=== PATIENT | female | born 1930 | race Caucasian/White ===

== ENCOUNTER 2017-07-23 11:25 | Inpatient (IN) | payer MEDICARE ==
[2017-07-23] MEDS ORDERED: NS 0.9% 1000 ML* 1,000 ML IV SCH (12:30)
[2017-07-23 12:35] LABS: Hematocrit 35 % (35-47); Hemoglobin 11.6 g/dl (12.0-16.0); Mean Corpuscular HGB Conc 33 g/dl (31-36); Mean Corpuscular Hemoglobin 34 pg (27-31); Mean Corpuscular Volume 102 fL (80-97); Mean Platelet Volume 10 um3 (7.4-10.4); Red Blood Count 3.44 10^6/ul (4.0-5.4); Red Cell Distribution Width 15 % (10.5-15); White Blood Count 12.5 10^3/ul (3.5-10.8)
[2017-07-23 12:53] LABS: Albumin 3.7 g/dL (3.2-5.2); BUN/Creatinine Ratio 19.8 (8-20); C Reactive Protein 4.34 mg/L (< 5.00); Calcium 9.1 mg/dL (8.6-10.3); EGFR Non-African American 52.1 (>60); Globulin 4.1 g/dL (2-4); Magnesium 1.9 mg/dL (1.9-2.7); Potassium 3.9 mmol/L (3.5-5.0); Total Bilirubin 0.6 mg/dL (0.2-1.0); Total Protein 7.8 g/dL (6.4-8.9)
[2017-07-23 12:58] LABS: Troponin I 0.07 ng/mL (<0.04)
--- NOTE | 2017-07-23 13:08 | RAD ---
HISTORY: Fall, anticoagulation COMPARISONS: November 22, 2015 TECHNIQUE: Multiple contiguous axial CT scans were obtained of the head without intravenous contrast. FINDINGS: HEMORRHAGE/INFARCT: There is no hemorrhage or acute infarct. MASSES/SHIFT: There is no mass or shift. EXTRA-AXIAL SPACES: There are no extra-axial fluid collections. SULCI AND VENTRICLES: The sulci and ventricles are normal in size and position for the patient's stated age. CEREBRUM: There is hypoattenuation of the periventricular and subcortical white matter. BRAINSTEM: There are no focal parenchymal abnormalities. CEREBELLUM: There are no focal parenchymal abnormalities. VESSELS: The vessels are grossly normal. PARANASAL SINUSES: The paranasal sinuses are clear. ORBITS: The orbits are unremarkable. BONES AND SOFT TISSUE: No bone or soft tissue abnormalities are noted. OTHER: None IMPRESSION: NO ACUTE INTRACRANIAL PATHOLOGY. CHRONIC SMALL VESSEL ISCHEMIC CHANGE
--- NOTE | 2017-07-23 13:10 | RAD ---
HISTORY: Fall, epistaxis COMPARISONS: None TECHNIQUE: Multiple contiguous axial CT scans were obtained of the face without intravenous contrast, with coronal and sagittal multiplanar reformations. FINDINGS: BONES: There is no displaced fracture or dislocation. The orbital rim is intact. The zygomatic arch is intact. The pterygoid plates are intact. ORBITS: The globes are round. The optic nerves are symmetric. The extraocular musculature is normal. There is no post septal or intraconal inflammatory change. There is no retrobulbar hematoma. PARANASAL SINUSES: The paranasal sinuses are clear. BRAIN AND SOFT TISSUE: Unremarkable. OTHER: None. IMPRESSION: NO FACIAL FRACTURE
--- NOTE | 2017-07-23 13:19 | RAD ---
INDICATION: Trauma. COMPARISON: Comparison is made with a prior x-ray study of the cervical spine from May 06, 2006. TECHNIQUE: Contiguous axial sections were obtained from the skull base through the T2 vertebra. Images were reconstructed in the sagittal and coronal planes. FINDINGS: There is straightening of the cervical spine. The vertebra are otherwise in normal alignment. No prevertebral soft tissue swelling or fracture is seen. There is fusion of the C3 and C4 vertebral bodies. At the C3-C4 level there is mild posterior uncinate process spurring. No significant spinal canal narrowing is present. There is mild bilateral neural foraminal narrowing. At the C4-C5 level there is mild posterior uncinate process spurring. No significant spinal canal narrowing is present. There is mild neural foraminal narrowing on the right side and moderate neural frontal narrowing on the left side. At the C5-C6 level there is moderate posterior uncinate process spurring which causes mild to moderate spinal canal narrowing and mild to moderate bilateral neural foraminal narrowing. At the C6-C7 level there is minimal posterior uncinate process spurring. No significant spinal canal or neural foraminal narrowing is present. Neural foramen appear patent on both sides. IMPRESSION: 1. NO EVIDENCE FOR FRACTURE. 2. MODERATE CERVICAL SPONDYLOSIS.
--- NOTE | 2017-07-23 13:23 | RAD ---
HISTORY: Lightheadedness, fall COMPARISONS: October 26, 2015 VIEWS:1: Single frontal portable view of the chest at 12:54 PM FINDINGS: LINES AND TUBES: None. CARDIOMEDIASTINAL SILHOUETTE: The cardiomediastinal silhouette is normal for portable technique. PLEURA: The costophrenic angles are sharp. No pleural abnormalities are noted. LUNG PARENCHYMA: The lungs are clear. ABDOMEN: There is moderate hiatal hernia BONES AND SOFT TISSUES: No bone or soft tissue abnormalities are noted. IMPRESSION: HIATAL HERNIA. NO ACTIVE CARDIOPULMONARY DISEASE.
[2017-07-23 13:24] LABS: TSH (Thyroid Stimulating Horm) 1.16 mcIU/mL (0.34-5.60)
[2017-07-23] MEDS ORDERED: Ondansetron INJ* 2 MG/ML VIAL IV PRN (14:51)
[2017-07-23] MEDS ORDERED: Acetaminophen TAB* 325 MG PO PRN (14:51)
[2017-07-23] MEDS ORDERED: Perflutren Lipid Microsphere* 3 ML VIAL ONE (15:39)
--- NOTE | 2017-07-23 15:47 | ED ---
Delmy Bowen Alfonso, scribed for Lorenzo Ji MD on 07/23/17 at 1206 . Adult Trauma - HPI Summary HPI Summary: This patient is an 86 year old [place] [facility] [place]p [place] approximately 0000. She fell walking to the bathroom. She was on the floor all night and found this morning. The patient rates the pain 5/10 in severity. Symptoms aggravated by nothing. Symptoms alleviated by nothing. Patient reports dizziness (lightheadedness), and neck pain. Patient denies LOC, weakness, abdominal pain, N/V/D, hip pain, CP, SOB, fever, chills, and urinary symptoms. She normal uses a cane to walk. PMHx of A-Fib. She is on Coumadin. Medications reviewed. - History of Current Complaint Chief Complaint: EDDizziness Stated Complaint: FALL Hx Obtained From: Patient Mechanism of Injury: Fall Ambulatory at the Scene: No Loss of Consciousness: no loss of consciousness Onset/Duration: Started Hours Ago - midnight, Still Present Onset of Pain: Prior to Arrival Onset Severity: Moderate Current Severity: Moderate Pain Intensity: 5 Pain Scale Used: 0-10 Numeric Aggravating Factor(s): Nothing Alleviating Factor(s): Nothing Associated Signs & Symptoms: Positive: Other: - Patient reports dizziness ( lightheadedness), and neck pain. Patient denies LOC, weakness, abdominal pain, N /V/D, hip pain, CP, SOB, fever, chills, and urinary symptoms. Related History: Anticoagulants - Coumadin - Allergy/Home Medications Allergies/Adverse Reactions: Allergies Allergy/AdvReac Type Severity Reaction Status Date / Time Sulfamethoxazole Allergy Intermediate Hives Verified 08/20/13 23:40 w/Trimethoprim [From Bactrim] one that starts with a s Allergy Hives Uncoded 08/20/13 23:40 PMH/Surg Hx/FS Hx/Imm Hx Cardiovascular History: Reports: Hx Atrial Fibrillation Sensory History: Denies: Hx Deafness Opthamlomology History: Denies: Hx Legally Blind - Immunization History Date of Tetanus Vaccine: unknown Infectious Disease History: No Infectious Disease History: Denies: Traveled Outside the [place] in Last 30 Days - Family History Known Family History: Positive: Cardiac Disease, Diabetes, Other - CVA - Social History Alcohol Use: None Substance Use Type: Reports: None Smoking Status (MU): Never Smoked Tobacco Review of Systems Negative: Fever, Chills Negative: Chest Pain Negative: Shortness Of Breath Negative: Abdominal Pain, Vomiting, Diarrhea, Nausea Positive: no symptoms reported Positive: Other - Fall, neck pain; negative hip pain. Neurological: Other - dizziness (lightheadedness); negative LOC, weakness All Other Systems Reviewed And Are Negative: Yes Physical Exam Triage Information Reviewed: Yes Vital Signs On Initial Exam: Initial Vitals Temp Pulse Resp BP Pulse Ox 98.8 F 71 14 102/46 94 07/23/17 11:36 07/23/17 11:36 07/23/17 11:36 07/23/17 11:36 07/23/17 11:36 Vital Signs Reviewed: Yes Appearance: Positive: Well-Appearing, No Pain Distress Skin: Positive: Warm, Skin Color Reflects Adequate Perfusion, Dry Head/Face: Positive: Normal Head/Face Inspection Eyes: Positive: EOMI, BEATRIZ ENT: Positive: Other - Dry blood near nares. Nares open. Nose non tender Neck: Positive: Supple, Other: - Mild tenderness to neck palpation posteriorly. Respiratory/Lung Sounds: Positive: Clear to Auscultation, Breath Sounds Present Cardiovascular: Positive: RRR Abdomen Description: Positive: Nontender, Soft Bowel Sounds: Positive: Present Musculoskeletal: Positive: Strength/ROM Intact, Other - Chest non tender. Mild right anterior javier tenderness. No obvious leg deformity. Neurological: Positive: Normal, Sensory/Motor Intact, Alert, Oriented to Person Place, Time Psychiatric: Positive: Affect/Mood Appropriate - [place] Coma Scale Coma Scale Total: 15 Diagnostics - Vital Signs Vital Signs Temp Pulse Resp BP Pulse Ox 07/23/17 11:45 70 17 99 07/23/17 11:36 98.8 F 71 15 102/46 94 - Laboratory Lab Results: Lab Results 07/23/17 07/23/17 07/23/17 Range/Units 12:15 12:15 12:15 WBC (3.5-10.8) 10^3/ul RBC (4.0-5.4) 10^6/ul Hgb (12.0-16.0) g/dl Hct (35-47) % MCV (80-97) fL MCH (27-31) pg MCHC (31-36) g/dl RDW (10.5-15) % Plt Count (150-450) 10^3/ul MPV (7.4-10.4) um3 Neut % (Auto) (38-83) % Lymph % (Auto) (25-47) % [place] % (Auto) (1-9) % Eos % (Auto) (0-6) % Baso % (Auto) (0-2) % Absolute Neuts (auto) (1.5-7.7) 10^3/ul Absolute Lymphs (auto) (1.0-4.8) 10^3/ul Absolute Monos (auto) (0-0.8) 10^3/ul Absolute Eos (auto) (0-0.6) 10^3/ul Absolute Basos (auto) (0-0.2) 10^3/ul Absolute Nucleated RBC 10^3/ul Nucleated RBC % INR (Anticoag Therapy) 1.23 H (0.89-1.11) APTT 26.4 (26.0-36.3) seconds Sodium 133 (133-145) mmol/L Potassium 3.9 (3.5-5.0) mmol/L Chloride 98 L (101-111) mmol/L Carbon Dioxide 28 (22-32) mmol/L Anion Gap 7 (2-11) mmol/L BUN 20 (6-24) mg/dL Creatinine 1.01 H (0.51-0.95) mg/dL Est GFR ( Amer) 67.0 (>60) Est GFR (Non-Af Amer) 52.1 (>60) BUN/Creatinine Ratio 19.8 (8-20) Glucose 98 (70-100) mg/dL Lactic Acid (0.5-2.0) mmol/L Calcium 9.1 (8.6-10.3) mg/dL Magnesium 1.9 (1.9-2.7) mg/dL Total Bilirubin 0.60 (0.2-1.0) mg/dL AST 34 (13-39) U/L ALT 17 (7-52) U/L Alkaline Phosphatase 39 (34-104) U/L Total Creatine Kinase 1164 H (10-223) U/L CK-MB (CK-2) 16.0 H (0.6-6.3) ng/mL Troponin I 0.07 H* (<0.04) ng/mL C-Reactive Protein 4.34 (< 5.00) mg/L B-Natriuretic Peptide 484 H ( - 100) pg/mL Total Protein 7.8 (6.4-8.9) g/dL Albumin 3.7 (3.2-5.2) g/dL Globulin 4.1 H (2-4) g/dL Albumin/Globulin Ratio 0.9 L (1-3) Lipase 29 (11.0-82.0) U/L TSH 1.16 (0.34-5.60) mcIU/mL 07/23/17 07/23/17 Range/Units 12:15 12:15 WBC 12.5 H (3.5-10.8) 10^3/ul RBC 3.44 L (4.0-5.4) 10^6/ul Hgb 11.6 L (12.0-16.0) g/dl Hct 35 (35-47) % MCV 102 H (80-97) fL MCH 34 H (27-31) pg MCHC 33 (31-36) g/dl RDW 15 (10.5-15) % Plt Count 222 (150-450) 10^3/ul MPV 10 (7.4-10.4) um3 Neut % (Auto) 80.6 (38-83) % Lymph % (Auto) 10.5 L (25-47) % [place] % (Auto) 8.4 (1-9) % Eos % (Auto) 0 (0-6) % Baso % (Auto) 0.5 (0-2) % Absolute Neuts (auto) 10.1 H (1.5-7.7) 10^3/ul Absolute Lymphs (auto) 1.3 (1.0-4.8) 10^3/ul Absolute Monos (auto) 1.1 H (0-0.8) 10^3/ul Absolute Eos (auto) 0 (0-0.6) 10^3/ul Absolute Basos (auto) 0.1 (0-0.2) 10^3/ul Absolute Nucleated RBC 0 10^3/ul Nucleated RBC % 0 INR (Anticoag Therapy) (0.89-1.11) APTT (26.0-36.3) seconds Sodium (133-145) mmol/L Potassium (3.5-5.0) mmol/L Chloride (101-111) mmol/L Carbon Dioxide (22-32) mmol/L Anion Gap (2-11) mmol/L BUN (6-24) mg/dL Creatinine (0.51-0.95) mg/dL Est GFR ( Amer) (>60) Est GFR (Non-Af Amer) (>60) BUN/Creatinine Ratio (8-20) Glucose (70-100) mg/dL Lactic Acid 1.5 (0.5-2.0) mmol/L Calcium (8.6-10.3) mg/dL Magnesium (1.9-2.7) mg/dL Total Bilirubin (0.2-1.0) mg/dL AST (13-39) U/L ALT (7-52) U/L Alkaline Phosphatase (34-104) U/L Total Creatine Kinase (10-223) U/L CK-MB (CK-2) (0.6-6.3) ng/mL Troponin I (<0.04) ng/mL C-Reactive Protein (< 5.00) mg/L B-Natriuretic Peptide ( - 100) pg/mL Total Protein (6.4-8.9) g/dL Albumin (3.2-5.2) g/dL Globulin (2-4) g/dL Albumin/Globulin Ratio (1-3) Lipase (11.0-82.0) U/L TSH (0.34-5.60) mcIU/mL Result Diagrams: 07/23/17 12:15 07/23/17 12:15 Lab Statement: Any lab studies that have been ordered have been reviewed, and results considered in the medical decision making process. - Radiology CXR Radiology Interpretation Completed By: Radiologist - HIATAL HERNIA. NO ACTIVE CARDIOPULMONARY DISEASE. ED physician has reviewed this radiology report and agrees. - CT Maxillofacial CT Interpretation Completed By: Radiologist - NO FACIAL FRACTURE ED physician has reviewed this radiology report and agrees. Cervical Spine CT Interpretation Completed By: Radiologist - 1. NO EVIDENCE FOR FRACTURE. 2. MODERATE CERVICAL SPONDYLOSIS. ED physician has reviewed this radiology report and agrees. brain CT Interpretation Completed By: Radiologist - NO ACUTE INTRACRANIAL PATHOLOGY. CHRONIC SMALL VESSEL ISCHEMIC CHANGE. ED physician has reviewed this radiology report and agrees. Adult Trauma Course/Dx - Course Course Of Treatment: ADMIT HOSPITALIST STABLE. NO CRITICAL CARE TIME. - Diagnoses Provider Diagnoses: Weakness, Head injury, Troponin level elevated - Physician Notifications Discussed Care Of Patient With: Dewey Charles Time Discussed With Above Provider: 14:10 Instructed by Provider To: Other - Consulted Dr. Charles (hospitalist) at 1410 who agrees to admit. Discharge - Discharge Plan Condition: Stable Disposition: ADMITTED TO [facility] Referrals: Mauri Ryan MD [Primary Care Provider] - The documentation as recorded by the Delmy mason Alfonso accurately reflects the service I personally performed and the decisions made by me, Lorenzo Ji MD.
--- NOTE | 2017-07-23 16:27 | ECHO ---
Patient: RAÚL LEO [facility] Rec#: [id number] : 1930 Date: 07/23/2017 Age: 86y Height: 152.4 cm / 60.0 in Weight: 59.87 kg / 132.0 lbs Sex: F BSA: 1.56 Room#: ED 4 Admit Date#: 07/23/2017 Type: Inpatient Referring: Talon Griffin NP Reading: Precious Cain MD Business Education Professor: Rashida Sim RDCS,RDMS CC: Mauri Ryan MD Transthoracic Echocardiogram Indication: Elevated Trop, Afib BP: 96/54 HR: 77 Rhythm: NSR Findings History: Afib, coumadin Technical Comments: The study quality is fair. Completed 1610 Left Ventricle: The left ventricular chamber size is decreased. Mild concentric left ventricular hypertrophy is observed. Global left ventricular wall motion and contractility are within normal limits. The left ventricle appears hyperdynamic. The estimated ejection fraction is 60-65%. Abnormal left ventricular diastolic function is observed. Left Atrium: The left atrium is moderate to severely dilated. Right Ventricle: The right ventricular cavity size is normal. The right ventricular global systolic function is low normal. Right Atrium: The right atrial cavity size is normal. Aortic Valve: The aortic valve is trileaflet. The aortic valve leaflets are mildly thickened. There is aortic annular calcification. There is mild aortic regurgitation. There is no evidence of aortic stenosis. Mitral Valve: There is mitral annular calcification. The mitral valve leaflets are mildly thickened. There is trace to mild mitral regurgitation. There is no evidence of mitral stenosis. Tricuspid Valve: The tricuspid valve leaflets are normal. There is mild tricuspid regurgitation. No pulmonary hypertension is noted. Pulmonic Valve: The pulmonic valve appears normal. There is moderate pulmonic regurgitation. Pericardium: There is no significant pericardial effusion. Aorta: The aortic root appears normal. There is no dilatation of the aortic arch. Pulmonary Artery: The main pulmonary artery is not well visualized. Venous: The inferior vena cava appears normal in size. There is a greater than 50% respiratory change in the inferior vena cava dimension. Contrast: Definity was used to optimize study. A total fo 2 ml was given Conclusions Mild concentric left ventricular hypertrophy is observed. Global left ventricular wall motion and contractility are within normal limits. The estimated ejection fraction is 60-65%. Abnormal left ventricular diastolic function is observed. The right ventricular global systolic function is low normal. There is mild aortic regurgitation with aortic valve sclerosis. There is trace to mild mitral regurgitation. There is mild tricuspid regurgitation. There is moderate pulmonic regurgitation. No prior echo to compare available. Measurements Name Value Normal Range RVIDd (AP) 2D 2.3 cm (0.9 - 2.6) RVDdMajor (2D) 2.5 cm (2.2 - 4.4) RAd ISD 4CH 4.1 cm (3.4 - 4.9) RA (A4C)W 2.9 cm (2.9 - 4.6) IVSd (2D) 1.3 cm (0.6 - 1) LVPWd (2D) 1.2 cm (0.6 - 1) LVIDd (2D) 2.7 cm (3.6 - 5.4) LVIDs (2D) 2.1 cm - LV FS (2D) 20 % (25 - 45) Aortic Annulus 2 cm (1.4 - 2.6) Ao root diameter (2D) 2.8 cm (2.1 - 3.5) Ascending Ao 2.4 cm (2.1 - 3.4) Aortic arch 3.2 cm (1.8 - 3.4) LA dimension (AP) 2D 3.8 cm (2.3 - 3.8) LAd ISD 4CH 6.2 cm (2.9 - 5.3) LA ISD 4CH W 4.7 cm (2.5 - 4.5) Name Value Normal Range LA ESV SP 4CH (A/L) 80.94 ml - LA ESV SP 2CH (A/L) 84.63 ml - LA ESV BP (A/L) 83.74 ml - LA ESV BP (A/L) index 53 ml/m2 - LA ESV SP 4CH (MOD) 74.16 ml - LA ESV SP 2CH (MOD) 76.25 ml - Name Value Normal Range MV E-wave Vmax 1.2 m/sec - MV deceleration time 216 msec - MV A-wave Vmax 0.9 m/sec - MV E:A ratio 1.3 ratio - LV septal e' Vmax 0.04 m/sec - LV lateral e' Vmax 0.06 m/sec - LV E:e' septal ratio 30 ratio - LV E:e' lateral ratio 20 ratio - Name Value Normal Range AV Vmax 1.3 m/sec - AV VTI 24.7 cm - AV peak gradient 7 mmHg - AV mean gradient 3.8 mmHg - LVOT Vmax 1.1 m/sec - LVOT VTI 20 cm - LVOT peak gradient 5 mmHg - LVOT mean gradient 2.6 mmHg - DIMITRI Vmax 0.4 m/sec - Name Value Normal Range MV Vmax 1.3 m/sec - MV VTI 33.1 cm - MV peak gradient 7 mmHg - MV mean gradient 2.5 mmHg - MV PHT 71 msec - MVA (PHT) 3.1 cm2 - Name Value Normal Range TR Vmax 2.6 m/sec - TR peak gradient 27 mmHg - RAP 3 mmHg - RVSP 30 mmHg - IVC diameter 1.2 cm - Name Value Normal Range PV Vmax 1.3 m/sec - PV peak gradient 7 mmHg -
[2017-07-23 16:55] LABS: Troponin I 0.06 ng/mL (<0.04)
[2017-07-23] MEDS ORDERED: Warfarin TAB(*) 5 MG PO ONE (17:00)
[2017-07-23] MEDS: NS 0.9% 1000 ML* 1,000 ML IV SCH (17:47)
[2017-07-23 18:22] LABS: Urine Bilirubin Negative (Negative); Urine Glucose Negative (Negative); Urine Nitrite Negative (Negative)
--- NOTE | 2017-07-23 22:05 | HP ---
CC: Dr. Ryan * HISTORY AND PHYSICAL: DATE OF ADMISSION: 07/23/17 PRIMARY CARE PROVIDER: Dr. Ryan. ATTENDING PHYSICIAN WHILE IN THE HOSPITAL: Dr. Dewey Charles * (report dictated by Talon Sarmiento NP) CHIEF COMPLAINT: Fall. HISTORY OF PRESENT ILLNESS: Ms. Francisco is an 86-year-old female patient. She has a history of AFib with a loop recorder, osteoporosis, psoriasis, and history of degenerative joint disease and she also has psoriatic arthritis. She comes in to the ER today stating that last night, she felt nauseated, she has vomited once. She was getting up to use the bathroom and she was incontinent. When getting up out of her bed, she fell. She says she remembers the fall. She denied having any syncope. She says that she knew where she was when she did fall. She denied having any chest pain prior to or after the fall. She says over the last few days, she has been feeling quite well. There have been no fevers, chills, cough, dysuria, or frequency. She says she was incontinent once last night because she could not make it to the bathroom in time. She was on the floor for an unknown period of time. Her neighbor actually coincidentally knocked on the door this morning looking for her and the patient was yelling out "I need help, I can't get up." So, the neighbor called the staff at [facility], they called 911 and the patient was brought to the hospital. She denies having any pain now and denies any chest pain. Denies any shortness of breath. She does not know how long she was on the floor. Ultimately, it was found that she had an elevated troponin. Her CK was mildly elevated and because of these findings, we were asked to evaluate for admission. PAST MEDICAL HISTORY: Significant for: 1. AFib. 2. Osteoporosis. 3. Psoriasis. 4. Degenerative disk disease. 5. The patient also has a history of psoriatic arthritis. PAST SURGICAL HISTORY: The patient has had an appendectomy and she has had a loop recorder placed. MEDICATIONS: The home meds include: 1. Warfarin 4 mg p.o. daily. 2. Nystatin 1 application topically b.i.d. as needed. 3. Mometasone 0.1% topically t.i.d. as needed. 4. Metoprolol XL 50 mg daily. 5. Methotrexate 7.5 mg weekly. 6. Folic acid 1 mg p.o. daily. 7. Prolia 60 mg subcu every 6 months. 8. Wellbutrin 300 mg p.o. daily. ALLERGIES TO MEDICATIONS: Include SULFA, CIPRO, and CODEINE. FAMILY HISTORY: Mother was diabetic. Father also had psoriasis. SOCIAL HISTORY: The patient is a former smoker. Does not drink alcohol. Lives alone. Surrogate decision maker is her son, Isidro. REVIEW OF SYSTEMS: There is no documented fever. She denied any significant weight change. There was no double vision. There is no ear discharge. Denied having any rhinorrhea. There is no sore throat. No thyroid enlargement. Denies having any chest pain. There was no orthopnea. There is no nocturnal dyspnea. She denied having any abdominal pain. There was no nausea, no vomiting. No dysuria, no frequency. No seizure. There was no loss of consciousness. No pruritus, and no skin ulcerations. Review of 14 systems completed, all others negative. PHYSICAL EXAMINATION GENERAL: At this time, Ms. Francisco is an 86-year-old female patient, appears to be well nourished and well developed. She is sitting in the ER stretcher. She does not appear to be in any acute distress. VITAL SIGNS: Reveal blood pressure 101/54, pulse 80, respirations 18, O2 sat 98 %, temperature 98.8. HEENT: Head is atraumatic and normocephalic. Eyes: EOMs are intact. Sclerae are anicteric and not pale. Throat: Oral mucosa appears to be moist. No oropharyngeal erythema. NECK: Supple. LUNGS: Clear to auscultation bilaterally. No wheezes, rales, or rhonchi. HEART: Sounds S1, S2. Regular rate and rhythm. No murmurs, rubs, or gallops. ABDOMEN: Soft, flat, and nontender. Bowel sounds present. EXTREMITIES: Pulses were 2+ throughout. She is able to move all 4 extremities with 5/5 strength. NEUROLOGIC: The patient is awake, alert, and oriented x3. Tongue is midline. [employer] are equal. There are no gross focal deficits. SKIN: Grossly intact. DIAGNOSTIC STUDIES/LAB DATA: Today revealed WBC of 12.5, RBC of 3.44, hemoglobin of 11.6, hematocrit of 35, platelet count of 222. INR was 1.23, PTT at 26.4. Sodium of 133, potassium 3.9, chloride 98, bicarb 28, BUN 20, creatinine of 1.01, glucose of 98, lactate 1.5, calcium 9.1, mag 1.9. AST 34, ALT 17, alk phos 39. CK was 1164, CK-MB 16. Troponin 0.07. BNP of 44. Albumin 3.7. TSH normal. Urine pending. The patient did have multiple imaging in the ED. She had a maxillofacial CT scan without showed no facial fracture. She had cervical spine imaging which showed no evidence of fracture, moderate cervical spondylosis. CT brain showed no acute intracranial pathology, chronic small vessel ischemic change. Chest x-ray showed hiatal hernia. No active cardiopulmonary disease. EKG showed sinus rhythm with right bundle branch block. No ST elevations or T- wave inversions. It was reviewed to the previous EKG, it is similar, but previously, she was on AFib. Old medical records were reviewed. ASSESSMENT AND PLAN: Ms. Francisco is an 86-year-old female patient coming into the ER today with complaints of fall. On evaluation here today, it was noted her troponin was elevated, CK mildly elevated, white count was mildly elevated, we were asked to evaluate for admission. She will be admitted under observation status for: 1. Mild rhabdomyolysis. Again, at this point, CK is mildly elevated, plan to give her fluids at 125 an hour, repeat her CK every 6 hours to make sure they are trending down. I will check her troponins as well and we will place her on telemetry and we will continue to follow. I will also get PT evaluation. 2. Indeterminate troponin. Again, this could be related to an arrhythmia possibly that caused her to fall, it is hard to say. She has a loop recorder, I asked cardiology office to send over the recording over the last 48 hours to see if there were any arrhythmias. Place her on telemetry. I will cycle her troponins. I will get an echo and if they do continue to elevate, we will get Cardiology involved. We will repeat EKG in the morning if she is not having any chest pain. 3. Leukocytosis. Again, etiology unclear. I am checking a urine. Chest x- ray looked okay. It could just be a leukemoid reaction from the fall. We will monitor. No antibiotics just yet. If she spikes a fever, then I would put her on antibiotics. 4. Atrial fibrillation. She is rate controlled. Her INR is subtherapeutic. I will go ahead and increase her Coumadin. We will follow this closely. For the time being, I will put her on SCDs. 5. Psoriasis. We will continue her meds as prescribed. I did hold the methotrexate for the time being and start this at discharge. I am just holding it for the time being until we know that this white count is not something that represents infection. 6. Degenerative joint disease. Continue supportive care. 7. Psoriatic arthritis. Again, holding the methotrexate. 8. DVT prophylaxis. She will be on SCDs and her Coumadin has been increased. 9. Code status. She is a full code. 10. Fluids, electrolytes, and nutrition. She can have a heart-healthy diet. TIME SPENT: On the admission was approximately 60 minutes; greater than half the time was spent [id number] with the patient obtaining my history and physical, other half the time was spent going over the plan of care with the patient and implementing the plan of care. I did discuss the plan of care with my attending, Dr. Charles; she is in agreement. TALON SARMIENTO NP [id number]/[facility] #: [id number] LEONA
[2017-07-24] MEDS: NS 0.9% 1000 ML* 1,000 ML IV SCH (02:27)
[2017-07-24 05:43] LABS: Hematocrit 29 % (35-47); Hemoglobin 9.9 g/dl (12.0-16.0); Mean Corpuscular HGB Conc 34 g/dl (31-36); Mean Corpuscular Hemoglobin 35 pg (27-31); Mean Corpuscular Volume 103 fL (80-97); Mean Platelet Volume 10 um3 (7.4-10.4); Red Blood Count 2.82 10^6/ul (4.0-5.4); Red Cell Distribution Width 15 % (10.5-15); White Blood Count 8.5 10^3/ul (3.5-10.8)
[2017-07-24 06:01] LABS: BUN/Creatinine Ratio 18.9 (8-20); Calcium 7.9 mg/dL (8.6-10.3); EGFR African American 60.1 (>60); EGFR Non-African American 46.7 (>60); Potassium 3.4 mmol/L (3.5-5.0)
[2017-07-24] MEDS: Folic Acid TAB* 1 MG PO SCH (09:38)
[2017-07-24] MEDS: Metoprolol Succinate XL TAB* 25 MG PO SCH (09:38)
[2017-07-24] MEDS: BuPROPion XL* 300 MG TAB.XL PO SCH (13:34)
--- NOTE | 2017-07-24 13:51 | PN ---
Subjective Date of Service: 07/24/17 Interval History: Patient denies LOC with her recent fall. No new c/o. Objective Active Medications: Acetaminophen (Tylenol Tab*) 650 mg PO Q4H PRN PRN Reason: FEVER/PAIN Bupropion HCl (Bupropion Xl*) 300 mg PO DAILY [facility] PRN Reason: Protocol Last Admin: 07/24/17 13:34 Dose: 300 mg Folic Acid (Folvite Tab*) 1 mg PO DAILY [facility] Last Admin: 07/24/17 09:38 Dose: 1 mg Metoprolol Succinate (Toprol Xl Tab*) 50 mg PO DAILY [facility] Last Admin: 07/24/17 09:38 Dose: 50 mg Ondansetron HCl (Zofran Inj*) 4 mg IV Q6H PRN PRN Reason: NAUSEA Pharmacy Profile Note (Coumadin Per Pharmacy*) 1 note FOLLOW UP .PER PHARMACY PROTOC [facility] PRN Reason: Protocol Pharmacy Profile Note (Coumadin Daily Reminder*) 1 note FOLLOW UP 1700 [facility] Last Admin: 07/23/17 18:11 Dose: 1 note Warfarin Sodium (Coumadin Tab(*)) 5 mg PO ONCE@1700 ONE Stop: 07/24/17 17:01 Vital Signs 07/23/17 07/23/17 07/23/17 15:00 15:50 16:00 Temperature Pulse Rate 80 77 79 Respiratory 18 18 19 Rate Blood Pressure 93/57 (mmHg) O2 Sat by Pulse 82 98 95 Oximetry 07/23/17 07/23/17 07/23/17 16:19 19:37 20:00 Temperature 98.2 F 99.0 F Pulse Rate 76 80 Respiratory 18 16 17 Rate Blood Pressure 113/57 100/49 (mmHg) O2 Sat by Pulse 96 99 Oximetry 07/24/17 07/24/17 07/24/17 00:22 01:30 04:50 Temperature 98.2 F 98.2 F Pulse Rate 73 68 Respiratory 16 16 Rate Blood Pressure 102/50 106/46 (mmHg) O2 Sat by Pulse 100 92 100 Oximetry 07/24/17 07/24/17 07:38 08:00 Temperature 98.4 F Pulse Rate 71 Respiratory 16 16 Rate Blood Pressure 105/49 (mmHg) O2 Sat by Pulse 96 Oximetry Oxygen Devices in Use Now: None Appearance: Alert, partly up in bed. In good spirits. Looks comfortable. Neck: NL Appearance and Movements; NL JVP, No Thyroid Enlargement, Masses Respiratory: Symmetrical Chest Expansion and Respiratory Effort, Clear to Auscultation, Clear to Percussion Cardiovascular: NL Sounds; No Murmurs; No JVD, No Edema, - - irreg and fast Extremities: No Edema, No Clubbing, Cyanosis, - Skin: No Nodules or Sclerosis, - - bruise R shoulder 6x6 cm. Neurological: Alert and Oriented x 3, NL Sensation, NL Gait, - - walks well with a walker Result Diagrams: 07/24/17 05:16 07/24/17 05:16 Additional Lab and Data: Lab Results 07/23/17 07/23/17 07/23/17 Range/Units 12:15 12:15 12:15 WBC (3.5-10.8) 10^3/ul RBC (4.0-5.4) 10^6/ul Hgb (12.0-16.0) g/dl Hct (35-47) % MCV (80-97) fL MCH (27-31) pg MCHC (31-36) g/dl RDW (10.5-15) % Plt Count (150-450) 10^3/ul MPV (7.4-10.4) um3 Neut % (Auto) (38-83) % Lymph % (Auto) (25-47) % [place] % (Auto) (1-9) % Eos % (Auto) (0-6) % Baso % (Auto) (0-2) % Absolute Neuts (auto) (1.5-7.7) 10^3/ul Absolute Lymphs (auto) (1.0-4.8) 10^3/ul Absolute Monos (auto) (0-0.8) 10^3/ul Absolute Eos (auto) (0-0.6) 10^3/ul Absolute Basos (auto) (0-0.2) 10^3/ul Absolute Nucleated RBC 10^3/ul Nucleated RBC % INR (Anticoag Therapy) 1.23 H (0.89-1.11) APTT 26.4 (26.0-36.3) seconds Sodium 133 (133-145) mmol/L Potassium 3.9 (3.5-5.0) mmol/L Chloride 98 L (101-111) mmol/L Carbon Dioxide 28 (22-32) mmol/L Anion Gap 7 (2-11) mmol/L BUN 20 (6-24) mg/dL Creatinine 1.01 H (0.51-0.95) mg/dL Est GFR ( Amer) 67.0 (>60) Est GFR (Non-Af Amer) 52.1 (>60) BUN/Creatinine Ratio 19.8 (8-20) Glucose 98 (70-100) mg/dL Lactic Acid (0.5-2.0) mmol/L Calcium 9.1 (8.6-10.3) mg/dL Magnesium 1.9 (1.9-2.7) mg/dL Total Bilirubin 0.60 (0.2-1.0) mg/dL AST 34 (13-39) U/L ALT 17 (7-52) U/L Alkaline Phosphatase 39 (34-104) U/L Total Creatine Kinase 1164 H (10-223) U/L CK-MB (CK-2) 16.0 H (0.6-6.3) ng/mL Troponin I 0.07 H* (<0.04) ng/mL C-Reactive Protein 4.34 (< 5.00) mg/L B-Natriuretic Peptide 484 H ( - 100) pg/mL Total Protein 7.8 (6.4-8.9) g/dL Albumin 3.7 (3.2-5.2) g/dL Globulin 4.1 H (2-4) g/dL Albumin/Globulin Ratio 0.9 L (1-3) Lipase 29 (11.0-82.0) U/L TSH 1.16 (0.34-5.60) mcIU/mL 07/23/17 07/23/17 Range/Units 12:15 12:15 WBC 12.5 H (3.5-10.8) 10^3/ul RBC 3.44 L (4.0-5.4) 10^6/ul Hgb 11.6 L (12.0-16.0) g/dl Hct 35 (35-47) % MCV 102 H (80-97) fL MCH 34 H (27-31) pg MCHC 33 (31-36) g/dl RDW 15 (10.5-15) % Plt Count 222 (150-450) 10^3/ul MPV 10 (7.4-10.4) um3 Neut % (Auto) 80.6 (38-83) % Lymph % (Auto) 10.5 L (25-47) % [place] % (Auto) 8.4 (1-9) % Eos % (Auto) 0 (0-6) % Baso % (Auto) 0.5 (0-2) % Absolute Neuts (auto) 10.1 H (1.5-7.7) 10^3/ul Absolute Lymphs (auto) 1.3 (1.0-4.8) 10^3/ul Absolute Monos (auto) 1.1 H (0-0.8) 10^3/ul Absolute Eos (auto) 0 (0-0.6) 10^3/ul Absolute Basos (auto) 0.1 (0-0.2) 10^3/ul Absolute Nucleated RBC 0 10^3/ul Nucleated RBC % 0 INR (Anticoag Therapy) (0.89-1.11) APTT (26.0-36.3) seconds Sodium (133-145) mmol/L Potassium (3.5-5.0) mmol/L Chloride (101-111) mmol/L Carbon Dioxide (22-32) mmol/L Anion Gap (2-11) mmol/L BUN (6-24) mg/dL Creatinine (0.51-0.95) mg/dL Est GFR ( Amer) (>60) Est GFR (Non-Af Amer) (>60) BUN/Creatinine Ratio (8-20) Glucose (70-100) mg/dL Lactic Acid 1.5 (0.5-2.0) mmol/L Calcium (8.6-10.3) mg/dL Magnesium (1.9-2.7) mg/dL Total Bilirubin (0.2-1.0) mg/dL AST (13-39) U/L ALT (7-52) U/L Alkaline Phosphatase (34-104) U/L Total Creatine Kinase (10-223) U/L CK-MB (CK-2) (0.6-6.3) ng/mL Troponin I (<0.04) ng/mL C-Reactive Protein (< 5.00) mg/L B-Natriuretic Peptide ( - 100) pg/mL Total Protein (6.4-8.9) g/dL Albumin (3.2-5.2) g/dL Globulin (2-4) g/dL Albumin/Globulin Ratio (1-3) Lipase (11.0-82.0) U/L TSH (0.34-5.60) mcIU/mL Assess/Plan/Problems-Billing Assessment: - Patient Problems (1) Falls Current Visit: Yes Status: Acute Comment: Patient found when VNS came for schedule visit and she didn't answer the door. I am not certain why the loop recorder was inserted but likely for similar events. Dr. Lopez will evaluate patient. (2) Anticoagulant long-term use Current Visit: Yes Status: Acute Code(s): Z79.01 - PLANT BREEDER (CURRENT) USE OF ANTICOAGULANTS SNOMED Code(s): 242116011 Comment: Warfarin increased to 5 mg daily. INR in 2-3 days. (3) Psoriatic arthritis Current Visit: Yes Status: Acute Code(s): L40.50 - ARTHROPATHIC PSORIASIS, UNSPECIFIED SNOMED Code(s): 448847475 Comment: On weekly MTX. (4) Elevated CK Current Visit: Yes Status: Acute Code(s): R74.8 - ABNORMAL LEVELS OF OTHER SERUM ENZYMES SNOMED Code(s): 063006374 Comment: Decreasing, no at a level of concer in of itself.
[2017-07-24] MEDS ORDERED: Warfarin TAB(*) 5 MG PO ONE (17:00)
--- NOTE | 2017-07-24 20:54 | CONSULT ---
Subjective Date of Service: 07/24/17 Interval History: Admission Date: 07/23/17 Provider: Hospitalist PMD: Dr. Ryan Sternman: Dr. Cline CHIEF COMPLAINT: Fall Reason for consult: Fall HISTORY OF PRESENT ILLNESS: Rani Francisco is an 86-year-old woman with a history of paroxysmal AFib, implantable loop recorder, osteoporosis, psoriasis, and history of degenerative joint disease and she also has psoriatic arthritis. Patient had a mechanicall fall while getting up to use the bathroom at night after GI upset and fell. She says she remembers the entire event and denies any palpitations, lightheadedness or syncope. She was unable to get up at [email or web address] and ultimately EMS was called. She was found with mild rhabdomylosis. Linq monitor during the event showed Afib, extensive artifact and what appears to be a wide complex rhythm toward the end of the recorded event but not conclusive. She ruled out for AL as there was no rise and fall of troponin. An echocardiogram showed a normal LVEF and vasodilator stress test was normal. No ventricular arrhythmias on monitoring. PAST MEDICAL HISTORY: Significant for: 1. AFib. 2. Osteoporosis. 3. Psoriasis. 4. Degenerative disk disease. 5. The patient also has a history of psoriatic arthritis. PAST SURGICAL HISTORY: The patient has had an appendectomy and she has had a loop recorder placed. ALLERGIES TO MEDICATIONS: Include SULFA, CIPRO, and CODEINE. FAMILY HISTORY: Mother was diabetic. Father also had psoriasis. SOCIAL HISTORY: The patient is a former smoker. Does not drink alcohol. Lives alone. Surrogate decision maker is her son, Isidro. Medications Active Medications: Acetaminophen (Tylenol Tab*) 650 mg PO Q4H PRN PRN Reason: FEVER/PAIN Bupropion HCl (Bupropion Xl*) 300 mg PO DAILY [facility] PRN Reason: Protocol Last Admin: 07/24/17 13:34 Dose: 300 mg Folic Acid (Folvite Tab*) 1 mg PO DAILY [facility] Last Admin: 07/24/17 09:38 Dose: 1 mg Metoprolol Succinate (Toprol Xl Tab*) 50 mg PO DAILY [facility] Last Admin: 07/24/17 09:38 Dose: 50 mg Ondansetron HCl (Zofran Inj*) 4 mg IV Q6H PRN PRN Reason: NAUSEA Pharmacy Profile Note (Coumadin Per Pharmacy*) 1 note FOLLOW UP .PER PHARMACY PROTOC [facility] PRN Reason: Protocol Pharmacy Profile Note (Coumadin Daily Reminder*) 1 note FOLLOW UP 1700 [facility] Last Admin: 07/24/17 16:07 Dose: 1 note Home Medications: Warfarin TAB(*) [Coumadin TAB(*)] 4 mg PO DAILY 10/26/15 [History Confirmed ] Folic Acid TAB* [Folvite TAB*] 1 mg PO DAILY 11/06/15 [History Confirmed ] Bupropion XL* [Wellbutrin XL *] 300 mg PO DAILY 07/23/17 [History Confirmed ] Denosumab(NF) [Prolia(NF)] 60 mg SUBCUT Q6M 07/23/17 [History Confirmed 07/23/17 ] Methotrexate TAB* 7.5 mg PO WEEKLY 07/23/17 [History Confirmed 07/23/17] Metoprolol Succinate XL TAB* [Toprol XL TAB*] 50 mg PO DAILY 07/23/17 [History Confirmed 07/23/17] Mometasone Furoate [Elocon] 0.1 % TOPICAL TID PRN 07/23/17 [History Confirmed ] Nystatin CREAM* [Nystatin Cream*] 1 applic TOPICAL BID PRN 07/23/17 [History Confirmed 07/23/17] Review of Systems - Measurements Intake and Output: Intake and Output Last 24 Hours 07/22/17 07/23/17 07/24/17 07/25/17 06:59 06:59 06:59 06:59 Intake Total 1790 500 Output Total 0 Balance 1790 500 Weight 127 lb 1.6 oz Intake: IV Fluids 1485 NS (0.9%) 1485 Oral 305 500 Output: Urine 0 Other: Estimated Void Medium # Bowel Movements 0 # Voids 3 - Review of Systems Constitutional Symptoms: Positive: Weakness, Unexplained Falls Negative: Weight Gain, Weight Loss, Fatigue, Fever Dermatology: Negative: Rash, Skin Lumps HEENT: Negative: Change in Hearing, Vertigo Eyes: Negative: Change in Vision, Double Vision Thyroid: Negative: Tremor, Frequent Defecation, Constipation, Palpitations, Change in Skin/Hair Pulmonary: Negative: Cough, Sputum, Hemoptysis, Wheezing, Respiratory Distress, Shortness of Breath, COPD, Exercise Intolerance, Home Oxygen Cardiology: Negative: Chest Pain, Shortness of Breath, Palpitations, Swelling of Ankles, Peripheral Vascular Dis, Edema, Faintness, Syncope, Claudication, Paroxysmal Nocturnal Dyspnea, Orthopnea Gastroenterology: Negative: Abdominal Pain, Indigestion, Difficulty Swallowing, Haematemesis, Melena Review of Systems Statement: All other review of systems negative, unless stated above. Objective Vital Signs: Temp Pulse Resp BP Pulse Ox 98.3 F 111 17 118/70 100 07/24/17 15:28 07/24/17 15:28 07/24/17 15:28 07/24/17 15:28 07/24/17 15:28 Oxygen Devices in Use Now: None Appearance: nad, very pleasant Ears/Nose/Mouth/Throat: Clear Oropharnyx, Mucous Membranes Moist Neck: NL Appearance and Movements; NL JVP Respiratory: Symmetrical Chest Expansion and Respiratory Effort, Clear to Auscultation Cardiovascular: NL Sounds; No Murmurs; No JVD, RRR, No Edema Abdominal: NL Sounds; No Tenderness; No Distention Extremities: No Edema Skin: No Rash or Ulcers Neurological: Alert and Oriented x 3 Laboratory Results: 07/24/17 05:16 07/24/17 05:16 INR (Anticoag Therapy) 1.36 (0.89-1.11) H 07/24/17 05:16 APTT 26.4 seconds (26.0-36.3) 07/23/17 12:15 Total Bilirubin 0.60 mg/dL (0.2-1.0) 07/23/17 12:15 AST 34 U/L (13-39) 07/23/17 12:15 ALT 17 U/L (7-52) 07/23/17 12:15 Alkaline Phosphatase 39 U/L (34-104) 07/23/17 12:15 CK-MB (CK-2) 12.2 ng/mL (0.6-6.3) H 07/23/17 21:39 B-Natriuretic Peptide 484 pg/mL (-100) H 07/23/17 12:15 Total Protein 7.8 g/dL (6.4-8.9) 07/23/17 12:15 Albumin 3.7 g/dL (3.2-5.2) 07/23/17 12:15 Globulin 4.1 g/dL (2-4) H 07/23/17 12:15 Albumin/Globulin Ratio 0.9 (1-3) L 07/23/17 12:15 TSH 1.16 mcIU/mL (0.34-5.60) 07/23/17 12:15 07/23/17 07/23/17 15:55 18:32 Troponin I 0.06 H* 0.06 H* EKG Data: 07/24/2017: NSR, RBBB Assessment/Plan Rani Francisco is an 86 year old woman with PAfib on warfarin who presented with a mechanical fall, no evidence of ACS, no syncope, LVEF normal, vasodilator stress test normal. CT scans did not show any fractures. Linq event during episode extensive artifact and what appears to be some wide complex rhythm but far from conclusive. - Patient advised to be very careful on getting up and ambulating while on anticoagulation - Increase toprol from 50 mg QAM to 50 mg QAM/25 mg QPM for arrhythmia suppression and better PAfib rate control - Patient should follow up with Dr. Cline after discharge Thank you for allowing me to participate in the cardiovascular care of this patient. Please do not hesitate to contact me with questions or concerns.
[2017-07-25 05:23] LABS: Hematocrit 31 % (35-47); Hemoglobin 10.5 g/dl (12.0-16.0); Mean Platelet Volume 9 um3 (7.4-10.4)
[2017-07-25] MEDS: Metoprolol Succinate XL TAB* 25 MG PO SCH (10:18)
[2017-07-25] MEDS: Folic Acid TAB* 1 MG PO SCH (10:19)
[2017-07-25] MEDS: BuPROPion XL* 300 MG TAB.XL PO SCH (10:19)
[2017-07-25] MEDS ORDERED: Regadenoson* 0.4 MG/5 ML SYRINGE ONE (11:06)
[2017-07-25] MEDS ORDERED: Aminophylline IV* 25 MG/ML 10 ML VIAL ONE (11:07)
[2017-07-25 12:59] VITALS: BP 121/53
--- NOTE | 2017-07-25 13:29 | RAD ---
Edited for charges. INDICATION: Syncope, arrhythmia. COMPARISON: No relevant prior exams available on the [facility] [place]. TECHNIQUE: 10.140 mCi of Tc-99m Myoview were administered IV. SPECT images of the heart were obtained. Later on the same day. Under the direction of Dr. Lopez, the patient was given an IV injection of a pharmacologic stress agent. Subsequently, the patient was given an IV injection of 25.940 mCi Tc-99m Myoview. SPECT images of the heart were obtained and a gated wall motion study was performed. FINDINGS: Hiatal hernia noted. Mitral annulus calcifications. Gated wall motion images were obtained at stress and demonstrate wall motion to be within normal limits. The calculated left ventricular ejection fraction is 86 % at stress. Estimated LEFT ventricular end diastolic volume is 44 mL. TID 1.09. Based on review of the attenuation corrected and non corrected images the distribution of radiopharmaceutical within the myocardium on the stress and rest images is within normal limits. No fixed or reversible regions of hypoperfusion evident. IMPRESSION: 1. No evidence for stress induced myocardial ischemia or presence of an infarct. 2. Normal left ventricular wall motion and ejection fraction. ASSESSMENT: LOW RISK. Based on imaging criteria from ACC/AHA 2002 Guideline Update for the Management of Patients With Chronic Stable Angina Table 23. Noninvasive Risk Stratification. MTDD
--- NOTE | 2017-07-25 14:38 | PN ---
Progress Note - Progress Note Date of Service: 07/25/17 Note: TIme spent on discharge 50 minutes. I discussed discharge meds (increased metoprolol dose) with Dr. Mykel Lopez. I discussed need for 7-day pill container with son Dariusz. Pt to get walker at home.
[2017-07-25] MEDS ORDERED: Warfarin TAB(*) 4 MG PO SCH (17:00)
[2017-07-25] MEDS ORDERED: Metoprolol Succinate XL TAB* 25 MG PO SCH (21:00)
--- NOTE | 2017-07-26 05:15 | DS ---
CC: Dr. Ryan DISCHARGE SUMMARY: DATE OF ADMISSION: DATE OF DISCHARGE: 07/25/17 HISTORY OF PRESENT ILLNESS: This 86-year-old woman presented after a fall. She denied loss of cons ciousness. She said she vomited once and was nauseated. At night, she got up to use the bathroom a nd was incontinent. She states she fell down but denied having syncope again. Apparently, she coul d not get up, she laid on the floor. The visiting nurse came by for a scheduled appointment then wh en she did not answer the door, the emergency medical service was called. She sustained a little bruise on her right shoulder. She is able to walk 150 feet with physical the rapy. Her loop recorder was interrogated by Dr. Lopez. She was in atrial fibrillation when she fell. Th ere was a lot of motion artifact. At the end of the motion artifact, there was a short period of wid e-complex beats. The clinical significance of this is uncertain. In the hospital, she was monitored and she went in and out of atrial fibrillation. When in atrial fi brillation, her heart rate was often in the 120s. Because of this, we are going to increase the met oprolol dose. There was not enough evidence on the loop recorder to change her therapy otherwise at this time. She did have an echocardiogram and a nuclear stress test. There was no evidence of inf arct or ischemia. LV function was good. On admission, her INR was 1.23 after a slightly higher dose of warfarin. It went up to 1.75 on the day of discharge. The patient does not use a 7-day pill container. I suspect she often forgets doses of medication in cluding warfarin. I have told son Dariusz to make sure that she gets a 7-day container with multiple c ompartments for different times of the day. This may be alone enough to raise her INR significantly and this should be monitored carefully. She is told to get an INR at Connor's office on 07/29/17. FINAL DIAGNOSES: 1. Fall. The patient was prescribed a walker. 2. Long-time use of anticoagulant. 3. Atrial fibrillation. 4. Psoriatic arthritis. 5. Elevated CK, highest value 0.07. DISCHARGE MEDICATIONS: 1. Acetaminophen 650 mg every 4 hours p.r.n. 2. Warfarin 4 mg daily at 5 p.m. 3. Folic acid 1 mg daily. 4. Methotrexate 7.5 mg weekly. 5. Mometasone 0.1% topical t.i.d. p.r.n. 6. Nystatin cream applied to the affected areas b.i.d. p.r.n. 7. Bupropion XL 300 mg daily. 8. Denosumab 60 mg subcu every 6 months. 9. Metoprolol succinate 25 mg 2 in the morning and 1 in the evening. [id number]/[facility] [place] #: [id number]
--- NOTE | 2017-07-26 07:07 | DS ---
CC: Dr. Ryan. DISCHARGE SUMMARY: DATE OF ADMISSION: DATE OF DISCHARGE: 07/25/17 HISTORY: This 86-year-old woman who came after a fall. She stated she had had emesis, nausea on th e way to the bathroom. She fell down, she denied having syncope. The visiting nurse came by for th e scheduled appointment and the patient did not answer the door and eventually EMS was called. The patient had a bruise on the right shoulder. She otherwise did well. She was monitored on the [facility] floor. She had a mild elevation of CK. Total CK was 1184 at the peak and it started to come d own. Creatinine was 1.11 within the range of her previous results. She had 2 creatinine measuremen ts here. She is a little bit anemic with a hematocrit of 31, similar to previous results, possibly a little lower related to IV hydration. With physical therapy, she is able to walk 150 feet with a walker. We arranged for her to get a walk er at home and I instructed her to use the walker when ever she is walking. Her son, Dariusz came in t o assist with her discharge. She seems to have a good social support. I emphasized the need for he r to get a 7-day container so she could know if she misses medications. Based on her initial low IN R and the resulting increase in INR with just a little extra warfarin, I suspect that she was missin g doses previously at home. Her last INR measured here on the day of discharge was 1.75. The initi al INR was 1.23 on arrival here. She was in and out of atrial fibrillation quite a bit. Dr. Lopez interrogated her loop recorder. At the time she saw, she was in atrial fibrillation, There was a lot of motion artifact. At the en d of the motion artifact, there was a short period with a few beats with a wide complex. It is not really clear what the clinical significance of this in this short period is. Due to her rate being usually 110 to 120 or higher when she was in atrial fibrillation, Dr. Lopez decided to increase her metoprolol. Although she used to take her medications at home, she is now going to take two 25 mg metoprolol succinates in the morning and 1 in the evening for a total of 75 mg a day. She will cont inue on her previous dose of warfarin 4 mg a day. DISCHARGE DIAGNOSES: 1. Falls. 2. Long-term use of anticoagulation. 3. Atrial fibrillation. 4. Psoriatic arthritis. 5. Elevated CK. DISCHARGE MEDICATIONS: 1. Acetaminophen 650 mg every 4 hours p.r.n. 2. Metoprolol succinate 25 mg 2 in the morning and 1 in the evening. 3. Warfarin 4 mg daily at 5 p.m. 4. Folic acid 1 mg daily. 5. Methotrexate 7.5 mg weekly. 6. Mometasone 0.1% topical t.i.d. p.r.n. 7. Nystatin cream 1 application b.i.d. p.r.n. 8. Bupropion XL 300 mg daily. 9. Denosumab 60 mg subcu every 6 weeks. [id number]/[facility] #: [id number]
== END 2017-07-25 16:25 | disposition home health service (06) | DRG 310 ==
LOC: ED 11:25 → MEDTELE 14:48
PROVIDERS: ADMIT Internal Medicine; ATTEND Internal Medicine
DX: I48.0 Paroxysmal atrial fibrillation (principal); D64.9 Anemia, unspecified; L40.50 Arthropathic psoriasis, unspecified; M81.0 Age-related osteoporosis without current pathological fracture; S40.011A Contusion of right shoulder, initial encounter; T79.6XXA Traumatic ischemia of muscle, initial encounter; W17.89XA Other fall from one level to another, initial encounter; R40.2412 Glasgow coma scale score 13-15, at arrival to emergency department; Z88.6 Allergy status to analgesic agent; Z88.2 Allergy status to sulfonamides; Z87.891 Personal history of nicotine dependence; Z88.1 Allergy status to other antibiotic agents; Z82.3 Family history of stroke; Z83.3 Family history of diabetes mellitus; Z82.49 Family history of ischemic heart disease and other diseases of the circulatory system; Z91.81 History of falling; Y92.009 Unspecified place in unspecified non-institutional (private) residence as the place of occurrence of the external cause; Z79.01 Long term (current) use of anticoagulants
CPT/HCPCS: 36415; 70450; 70486; 71010; 72125; 78452; 80048; 80053; 81003; 82550; 82553; 83605; 83690; 83735; 83880; 84443; 84484; 85014; 85018; 85025; 85049; 85610; 85730; 86140; 87086; 93005; 93017; 93306; 94760; A9270-GY; A9502; C8929; J0280; J2785

== ENCOUNTER 2018-01-16 13:48 | Inpatient (IN) | payer MEDICARE ==
[2018-01-16] MEDS ORDERED: Acetaminophen TAB* 325 MG PO ONE (14:16)
[2018-01-16] MEDS ORDERED: NS 0.9% 1000 ML* 1,000 ML IV ONE (14:17)
[2018-01-16] MEDS ORDERED: Oseltamivir CAP* 75 MG CAP PO ONE (15:19)
--- NOTE | 2018-01-16 15:23 | RAD ---
INDICATION: Right ankle swelling COMPARISON: None TECHNIQUE: AP, lateral, and oblique views were obtained. FINDINGS: There is no acute fracture or dislocation. There is no significant soft tissue swelling. IMPRESSION: NO ACUTE BONY FINDINGS.
--- NOTE | 2018-01-16 15:24 | RAD ---
Indication: Right knee pain. 2 views of the right knee demonstrates degenerative changes of the patellofemoral joint as well as the medial and lateral compartment. Moderate-sized joint effusion is noted. No obvious fracture is noted. IMPRESSION: Degenerative changes of the medial, lateral and patellofemoral joint. Small joint effusion is noted.
--- NOTE | 2018-01-16 15:24 | RAD ---
INDICATION: Fall COMPARISON: None TECHNIQUE: An AP portable view obtained at 1254 hours is submitted. FINDINGS: Bones/Soft Tissues: There are no acute bony findings. Cardiomediastinal: The cardiomediastinal silhouette is normal. Lungs: There are no infiltrates. Pleura: There are no pleural effusions. Other: None IMPRESSION: NO ACTIVE DISEASE.
--- NOTE | 2018-01-16 15:25 | RAD ---
Indication: Fall, pelvic pain. Single view of the pelvis is reviewed. The study is limited due to overlying wires. No definite fractures are noted. Pelvic ring is grossly intact. IMPRESSION: Limited study due to overlying foreign bodies. No definite fracture is noted.
--- NOTE | 2018-01-16 15:25 | RAD ---
INDICATION: Right lower extremity injury COMPARISON: None TECHNIQUE: AP and lateral views were obtained. FINDINGS: There is osteopenia. There are no acute bony findings. 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 Soft tissues are intact. IMPRESSION: NO ACUTE FRACTURE.
--- NOTE | 2018-01-16 15:28 | RAD ---
Indication: Head injury. CT of the brain was performed without IV contrast. Comparison is made with previous exam dated July 23, 2017. Ventricular structures are midline. No midline shift is noted. Central and cortical atrophy is noted. Periventricular lucency consistent with chronic ischemic White matter change is noted. IMPRESSION: Chronic ischemic White matter change with no evidence of intracranial mass or hemorrhage.
[2018-01-16 16:06] LABS: ABS Basophils 0 10^3/ul (0-0.2); ABS Eosinophils 0 10^3/ul (0-0.6); ABS Lymphocytes 0.9 10^3/ul (1.0-4.8); ABS Monocytes 0.5 10^3/ul (0-0.8); ABS Neutrophils 9.3 10^3/ul (1.5-7.7); ABS Nucleated RBC 0 10^3/ul; Eosinophil % 0 % (0-6); Hematocrit 30 % (35-47); Hemoglobin 10.5 g/dl (12.0-16.0); Lymphocyte % 8.1 % (25-47); Mean Corpuscular HGB Conc 35 g/dl (31-36); Mean Corpuscular Hemoglobin 36 pg (27-31); Mean Corpuscular Volume 105 fL (80-97); Mean Platelet Volume 9 um3 (7.4-10.4); Nucleated Red Blood Cells % 0; Platelet Count 162 10^3/ul (150-450); Red Blood Count 2.88 10^6/ul (4.0-5.4); Red Cell Distribution Width 15 % (10.5-15); White Blood Count 10.8 10^3/ul (3.5-10.8)
[2018-01-16 16:17] LABS: INR 1.99 (0.77-1.02)
[2018-01-16 16:22] LABS: EGFR Non-African American 45.2 (>60)
--- NOTE | 2018-01-16 17:20 | ED ---
Dixon Bowen Gabriel, scribed for Taylor Bobo MD on 01/16/18 at 1413 . Adult Trauma - HPI Summary HPI Summary: This patient is a 87 year old F BIBA to [facility] from [facility] s/p fall that occurred [employer]. Pt states she doesnt remember falling she just remembers being on the floor. She was unable to get up and was found by the staff at the assisted living facility. She is unsure how long she was on the floor. The patient rates the pain 4/10 in severity. Patient reports fever, RLE pain, vomiting, decreased appetite, and right calf pain. Patient denies diarrhea, cough, SOB, and urinary symptoms. Pt ambulates with cane at baseline. - History of Current Complaint Chief Complaint: EDGeneral Stated Complaint: GENERAL Time Seen by Provider: 01/16/18 14:00 Hx Obtained From: Patient Mechanism of Injury: Fall Ambulatory at the Scene: No Loss of Consciousness: unsure Onset/Duration: Still Present Onset of Pain: Immediate Onset Severity: Moderate Current Severity: Moderate Pain Intensity: 4 Pain Scale Used: 0-10 Numeric Location: Extremities - RLE Associated Signs & Symptoms: Positive: Nausea/Vomiting, Other: - decreased appetite, right calf pain, and fever - Additional Pertinent History Primary Care Physician: [id number] - Allergy/Home Medications Allergies/Adverse Reactions: Allergies Allergy/AdvReac Type Severity Reaction Status Date / Time MS Sulfamethoxazole Allergy Intermediate Hives Verified 08/20/13 23:40 w/Trimethoprim [From Bactrim] sulfamethoxazole Allergy Hives Verified 01/16/18 14:45 [From Bactrim] trimethoprim [From Bactrim] Allergy Hives Verified 01/16/18 14:45 one that starts with a s Allergy Hives Uncoded 08/20/13 23:40 Home Medications: Home Medications Calcium Carbonate/Vitamin D3 [Calcium 600 + Vit D Tablet] 1 each PO DAILY [History Confirmed 01/16/18] Donepezil TAB* [Aricept 5 MG TAB*] 5 mg PO DAILY 01/16/18 [History Confirmed ] Glucosamine Sulfate Dipot Chlr [Gnp Glucosamine Maximum S] 1,500 mg PO DAILY [History Confirmed 01/16/18] Metoprolol Succinate XL TAB* [Toprol XL TAB*] 25 mg PO QPM 01/16/18 [History Confirmed 01/16/18] Metoprolol Succinate XL TAB* [Toprol XL TAB*] 50 mg PO QAM 01/16/18 [History Confirmed 01/16/18] Mometasone Furoate [Mometasone Furoate] 0.1 % TOPICAL TID PRN 01/16/18 [History Confirmed 01/16/18] Nystatin OINT* 1 applic TOPICAL BID PRN 01/16/18 [History Confirmed 01/16/18] PMH/Surg Hx/FS Hx/Imm Hx Endocrine/Hematology History: Denies: Hx Diabetes Cardiovascular History: Reports: Hx Atrial Fibrillation Denies: Hx Angina, Hx Coronary Artery Disease, Hx Hypercholesterolemia, Hx Hypertension - not sure, Hx Myocardial Infarction, Hx Peripheral Vascular Disease, Hx Valvular Heart Disease Respiratory History: Denies: Hx Asthma, Hx Chronic Obstructive Pulmonary Disease (COPD) Sensory History: Denies: Hx Contacts or Glasses, Hx Legally Blind, Hx Deafness, Hx Hearing Aid Opthamlomology History: Denies: Hx Contacts or Glasses, Hx Legally Blind - Immunization History Date of Tetanus Vaccine: unknown Infectious Disease History: No Infectious Disease History: Denies: Hx of Known/Suspected MRSA, Traveled Outside the [place] in Last 30 Days - Family History Known Family History: Positive: Cardiac Disease, Diabetes, Other - CVA - Social History Alcohol Use: None Substance Use Type: Reports: None Smoking Status (MU): Former Smoker Type: Cigarettes Have You Smoked in the Last Year: No Review of Systems Positive: Fever, Other - fall Positive: Vomiting, Other - decreased appetite Positive: Other - RLE pain and right calf pain All Other Systems Reviewed And Are Negative: Yes Physical Exam - Summary Physical Exam Summary: VITAL SIGNS: Reviewed. GENERAL: Patient is a frail elderly female who is lying comfortable in the stretcher. Patient is not in any acute respiratory distress. HEAD AND FACE: No signs of trauma. No ecchymosis, hematomas or skull depressions. No sinus tenderness. EYES: PERRLA, EOMI x 2, No injected conjunctiva, no nystagmus. EARS: Hearing grossly intact. Ear canals and tympanic membranes are within normal limits. MOUTH: Oropharynx within normal limits. NECK: Supple, trachea is midline, no adenopathy, no JVD, no carotid bruit, no c- spine tenderness, neck with full ROM. CHEST: Symmetric, no tenderness at palpation LUNGS: Clear to auscultation bilaterally. No wheezing or crackles. CVS: Regular rate and rhythm, S1 and S2 present,. Systolic murmur 3 over 6 in the left sternal border ABDOMEN: Soft, non-tender. No signs of distention. No rebound no guarding, and no masses palpated. Bowel sounds are normal. EXTREMITIES: patient is tender from the right knee down to the right ankle, NEURO: Alert and oriented x 3. No acute neurological deficits. Speech is normal and follows commands. SKIN: Dry and warm Triage Information Reviewed: Yes Vital Signs On Initial Exam: Initial Vitals Temp Pulse Resp BP Pulse Ox 100.6 F 84 18 143/83 96 01/16/18 13:55 01/16/18 13:55 01/16/18 13:55 01/16/18 13:55 01/16/18 13:55 Vital Signs Reviewed: Yes Diagnostics - Vital Signs Vital Signs Temp Pulse Resp BP Pulse Ox 01/16/18 13:55 100.6 F 84 18 143/83 96 - Laboratory Result Diagrams: 01/16/18 15:57 01/16/18 15:57 Lab Statement: Any lab studies that have been ordered have been reviewed, and results considered in the medical decision making process. - EKG 14:14 Cardiac Rate: NL EKG Rhythm: Sinus Rhythm - at 83 EKG Interpretation: RBBB - Additional Comments Diagnostic Additional Comments: CT brain reveals, per radiologist, Chronic ischemic White matter change with no evidence of intracranial mass or hemorrhage. ED physician has reviewed this radiology report. CXR reveals, per radiologist, NO ACTIVE DISEASE. ED physician has reviewed this radiology report. LE Xray reveals, per radiologist, NO ACUTE FRACTURE. ED physician has reviewed this radiology report. Knee xray reveals, per radiologist, Degenerative changes of the medial, lateral and patellofemoral joint. Small joint effusion is noted. ED physician has reviewed this radiology report. Ankle XRay reveals, per radiologist, NO ACUTE BONY FINDINGS. ED physician has reviewed this radiology report. Pelvis Xray reveals, per radiologist, Limited study due to overlying foreign bodies. No definite fracture is noted. ED physician has reviewed this radiology report. Adult Trauma Course/Dx - Course Assessment/Plan: This patient is a 87 year old F BIBA to [facility] from [facility] s/p fall that occurred [employer]. Pt states she doesnt remember falling she just remembers being on the floor. She was unable to get up and was found by the staff at the assisted living facility. She is unsure how long she was on the floor. The patient rates the pain 4/10 in severity. Patient reports fever, RLE pain, vomiting, decreased appetite, and right calf pain. Patient denies diarrhea, cough, SOB, and urinary symptoms. Pt ambulates with cane at baseline. Pt was positive for influenza B. An EKG reveals RBBB. CT brain reveals, per radiologist, Chronic ischemic White matter change with no evidence of intracranial mass or. hemorrhage. CXR reveals, per radiologist, NO ACTIVE DISEASE. LE Xray reveals, per radiologist, NO ACUTE FRACTURE. Knee xray reveals, per radiologist, Degenerative changes of the medial, lateral and patellofemoral joint. Small. joint effusion is noted. Ankle XRay reveals, per radiologist, NO ACUTE BONY FINDINGS. Pelvis Xray reveals, per radiologist, Limited study due to overlying foreign bodies. No definite fracture is noted. In the ED course the patient was given Tamiflu, Tylenol, and IV fluids. Dx flub b weakness. We discussed patient care with Dr. Fu and he accepted the patient for admission. Patient will be admitted. The patient is agreeable with this plan. - Diagnoses Provider Diagnoses: Weakness, Influenza B - Physician Notifications Discussed Care Of Patient With: Paul Fu Time Discussed With Above Provider: 16:45 Instructed by Provider To: Admit As Inpatient Discharge - Discharge Plan Condition: Fair Disposition: ADMITTED TO [facility] Referrals: Mauri Ryan MD [Primary Care Provider] - The documentation as recorded by the Dixon mason Gabriel accurately reflects the service I personally performed and the decisions made by me, Taylor Bobo MD.
[2018-01-16] MEDS: Acetaminophen TAB* 325 MG PO ONE ×2 (17:53→18:11)
[2018-01-16] MEDS ORDERED: Ondansetron INJ* 2 MG/ML VIAL IV ONE (17:58)
[2018-01-16] MEDS ORDERED: Ondansetron INJ* 2 MG/ML VIAL IV PRN (19:16)
--- NOTE | 2018-01-16 21:22 | RAD ---
INDICATION: Fall. Pelvic pain. COMPARISON: Pelvic radiograph same date TECHNIQUE: Noncontrast axial source images were obtained from the iliac crests through the symphysis pubis. FINDINGS: There are no CT abnormalities of the bony pelvis. There are spondylitic changes of the lower lumbar spine and SI joints and symphysis are intact. The hips articulate normally The uterus and adnexa appear normal. No free fluid or adenopathy is seen. The noncontrast CT appearance of the bowel is unremarkable. The superficial soft tissues appear normal. The bladder appears normal. Other: There are vascular calcifications. There is a fat-containing ventral hernia. The hernia measures approximately 4 cm in transverse dimension and the neck measures 1.1 cm. IMPRESSION: NO CT EVIDENCE OF ACUTE PELVIC FRACTURE. INCIDENTAL FAT-CONTAINING VENTRAL HERNIA.
[2018-01-16] MEDS ORDERED: Heparin VIAL(*) 5000 UNITS/ML VIAL (FIVE THOUSAND) SUBCUT SCH (22:00)
[2018-01-16] MEDS: NS 0.9% 1000 ML* 1,000 ML IV SCH (22:40)
--- NOTE | 2018-01-16 22:46 | HP ---
CC: Dr. Ryan * HISTORY AND PHYSICAL: DATE OF ADMISSION: 01/16/18 PRIMARY CARE PROVIDER: Dr. Ryan. ATTENDING PHYSICIAN WHILE IN THE HOSPITAL: Dr. Marvin Go * (report dictated by Talon Griffin NP). CHIEF COMPLAINT: 1. Weakness. 2. Fall. HISTORY OF PRESENTING ILLNESS: Ms. Francisco is an 87-year-old female patient; she has a history of AFib, osteoporosis, psoriasis, degenerative disk disease, and also has a history of psoriatic arthritis. She comes in today stating that last week she has had nausea and vomiting. Her son, Isidro, is there who says that actually for the last month, she has had intermittent nausea and vomiting. The patient denies any abdominal pain. There have been no fevers or chills. She denies having any chest pain or shortness of breath. Son, Isidro, has noted that she has been increasingly weak particularly over the last couple of days, she has had a fall today. The patient states that she in the last few days has had some runny nose, cough occasionally. She denied any arthralgias or myalgias. There have been no report of fevers, but it was noted that her appetite had been decreasing. She has had not been doing well. She fell last month as well. She came into the ER, was evaluated, it was noted that she had the flu. She denied having again any congestion. She did admit to have that rhinorrhea and intermittent cough. She denied any shortness of breath or chest discomfort. She came in, was evaluated because of the flu symptoms and the fact that she was weak and the fact that she was little hypotensive, at one point her blood pressure was in the 90s systolic. We were asked to evaluate for admission. PAST MEDICAL HISTORY: Significant for: 1. AFib. 2. Osteoporosis. 3. Psoriasis. 4. Degenerative disk disease. 5. Psoriatic arthritis. PAST SURGICAL HISTORY: Includes: 1. Appendectomy. 2. Loop recorder. MEDICATIONS: Home meds include: 1. Calcium with vitamin D 1 tablet daily. 2. Metoprolol XL 25 mg daily. 3. Glucosamine 1500 mg p.o. daily. 4. Toprol-XL 50 mg daily. 5. Methotrexate 7.5 mg p.o. weekly. 6. Mometasone 0.1% topically t.i.d. as needed. 7. Folvite 1 mg p.o. daily. 8. Nystatin 1 application topically b.i.d. as needed. 9. Bupropion 300 mg p.o. daily. 10. Coumadin 4 mg daily. 11. Aricept 5 mg daily. 12. Prolia 60 mg subcu every 6 months. ALLERGIES TO MEDICATIONS: Include SULFA. FAMILY HISTORY: Mother is diabetic. Father has a history of psoriasis. SOCIAL HISTORY: She is a former smoker, she quit over 35 years ago. She does not drink alcohol. She lives alone in [facility]. Surrogate decision maker is the patient's son, Isidro. REVIEW OF SYSTEMS: There is a documented fever. She denied any significant weight change. There was no double vision. She denies having any ear discharge. There is no rhinorrhea. There is no sore throat. No thyroid enlargement. She denies having any chest pain. There is no orthopnea. There is no nocturnal dyspnea. There is no abdominal pain. There has been some nausea with vomiting. No dysuria, no frequency. There was no seizure, no loss of consciousness. No pruritus and no skin ulcerations. Review of 14 systems completed, all others were negative. PHYSICAL EXAMINATION GENERAL: At this time, Ms. Francisco is an 87-year-old female patient, she is sitting in the ED stretcher. She does not appear to be in any acute distress. VITAL SIGNS: Blood pressure 112/58, pulse 80, respirations 18, O2 sat 99%, temperature 101.5. HEENT: Head is atraumatic, normocephalic. Eyes: EOMs are intact. Sclerae were anicteric and not pale. Throat: Oral mucosa appears to be dry. No oropharyngeal erythema. NECK: Supple. LUNGS: Clear to auscultation bilaterally. No wheezes, rales, or rhonchi. HEART: Sounds S1, S2. Regular rate and rhythm. No murmurs, rubs, or gallops. ABDOMEN: Soft, flat, nontender. Bowel sounds present. EXTREMITIES: Pulses 2+ throughout. Moving all 4 extremities with 5/5 strength. NEUROLOGICAL: She is awake, alert, and oriented x3. Tongue midline. Dietitian Consultant were equal. She had no gross focal deficits. SKIN: Intact. DIAGNOSTIC STUDIES/LAB DATA: Revealed a WBC of 10.8, RBC of 2.88, hemoglobin 10.5, hematocrit 30, platelet count of 162. INR of 1.99, PTT of 31.3. Sodium 135, potassium 3.8, chloride of 102, bicarb 26, BUN 15, creatinine 1.14, glucose 104, lactate 1.3, calcium 8.5. Total bili 0.4, AST 16, ALT 11, alk phos 31. Troponin 0.01. Albumin was 3.4. Serology was positive for flu. The patient did have multiple imaging here in the ED. She had a chest x-ray, which showed no active disease. She had an EKG obtained today, which revealed a sinus rhythm with a right bundle branch block, no ST elevations or T-wave inversions were noted. It is reviewed to the previous EKG, it is similar in morphology, rate is little faster today. She did have a pelvis x-ray obtained today, which revealed limited study due to overlying foreign bodies, no definite fracture is seen. She had an x-ray of the ankle obtained today, which revealed no acute bony findings. She had a knee x-ray obtained today, which revealed degenerative changes of the medial, lateral, and patellofemoral joints, small joint effusion is noted. She had a lower extremity x-ray as well, which revealed no acute fracture. She had a brain CT, which revealed chronic ischemic white matter change with no evidence of intracranial mass or hemorrhage. Old medical records were reviewed. ASSESSMENT AND PLAN: Ms. Francisco is an 87-year-old female patient coming in to the ED today with complaints of weakness, nausea, and vomiting, and on evaluation found to have influenza. She will be admitted under inpatient status for: 1. Influenza. At this point, the patient is fairly dehydrated and weakened from this. I suspect she is going to need longer than a 24-hour stay. My plan at this point is to go ahead and admit her, get PT evaluation, order Zofran as needed for the nausea. In addition to this, fluids and Tamiflu for 5 days, and get PT evaluation. 2. Atrial fibrillation. We will go ahead and continue her Coumadin and her beta leti. 3. Osteoporosis. She can follow up with primary. 4. Psoriatic arthritis. When she is not in an immune weakened state, we will continue her methotrexate. 5. Degenerative disk disease. Continue meds as described. 6. DVT prophylaxis. We will continue her warfarin. 7. History of mild dementia. We will continue her Aricept. 8. Code status. She wished to be a DNR. We will try to fill out a MOLST with her. 9. Fluids, electrolytes, and nutrition. She can have clear liquid diet. TIME SPENT: On the admission was 60 minutes; greater than half the time was spent [id number] with the patient obtaining my history and physical; other half time was spent going over the plan of care with the patient and implementing the plan of care. I did discuss the plan of care with my attending physician, Dr. Go; he is in agreement. TALON GRIFFIN NP [id number]/[facility] #: [id number] [place]
[2018-01-17 05:38] LABS: ABS Basophils 0.1 10^3/ul (0-0.2); ABS Eosinophils 0.2 10^3/ul (0-0.6); ABS Lymphocytes 2.1 10^3/ul (1.0-4.8); ABS Monocytes 0.6 10^3/ul (0-0.8); ABS Neutrophils 4.5 10^3/ul (1.5-7.7); ABS Nucleated RBC 0 10^3/ul; Eosinophil % 2.2 % (0-6); Hematocrit 29 % (35-47); Hemoglobin 9.8 g/dl (12.0-16.0); Lymphocyte % 28.5 % (25-47); Mean Corpuscular HGB Conc 34 g/dl (31-36); Mean Corpuscular Hemoglobin 36 pg (27-31); Mean Corpuscular Volume 106 fL (80-97); Mean Platelet Volume 9 um3 (7.4-10.4); Nucleated Red Blood Cells % 0; Platelet Count 145 10^3/ul (150-450); Red Cell Distribution Width 15 % (10.5-15); White Blood Count 7.5 10^3/ul (3.5-10.8)
[2018-01-17 05:41] LABS: INR 2.04 (0.77-1.02)
[2018-01-17 05:45] LABS: EGFR Non-African American 42.2 (>60)
[2018-01-17] MEDS: Donepezil TAB* 5 MG PO SCH (08:50)
[2018-01-17] MEDS: BuPROPion XL* 300 MG TAB.XL PO SCH (08:50)
[2018-01-17] MEDS: Oseltamivir CAP* 30 MG CAP PO SCH ×2 (08:51→20:49)
[2018-01-17] MEDS: Metoprolol Succinate XL TAB* 25 MG PO SCH ×2 (08:54→17:39)
[2018-01-17] MEDS ORDERED: NS 0.9% 1000 ML* 1,000 ML IV SCH (12:15)
[2018-01-17] MEDS: NS 0.9% 1000 ML* 1,000 ML IV SCH (12:43)
--- NOTE | 2018-01-17 15:19 | PN ---
Subjective Date of Service: 01/17/18 Interval History: Patient reports "I cant believe I have the flu I feel pretty good". Per son who is at the bedtime, she was weak at home and prior to getting sick he thinks she has become weaker over the last several months. He reports she looks much better today. No fevers today. reports little appetite. No abdominal pain. No N/ V/D. Denies cough, SOB Objective Active Medications: Acetaminophen (Tylenol Tab*) 650 mg PO Q4H PRN PRN Reason: FEVER/PAIN Bupropion HCl (Bupropion Xl*) 300 mg PO DAILY [facility] PRN Reason: Protocol Last Admin: 01/17/18 08:50 Dose: 300 mg Donepezil HCl (Aricept Tab*) 5 mg PO DAILY [facility] Last Admin: 01/17/18 08:50 Dose: 5 mg Sodium Chloride (Ns 0.9% 1000 Ml*) 1,000 mls @ 100 mls/hr IV PER RATE [facility] Last Admin: 01/16/18 22:40 Dose: 100 mls/hr Sodium Chloride (Ns 0.9% 1000 Ml*) 1,000 mls @ 75 mls/hr IV PER RATE [facility] Stop: 01/18/18 01:34 Last Admin: 01/17/18 12:48 Dose: 75 mls/hr Metoprolol Succinate (Toprol Xl Tab*) 50 mg PO QAM [facility] Last Admin: 01/17/18 08:54 Dose: Not Given Metoprolol Succinate (Toprol Xl Tab*) 25 mg PO QPM [facility] Ondansetron HCl (Zofran Inj*) 4 mg IV Q6H PRN PRN Reason: NAUSEA Oseltamivir Phosphate (Tamiflu Cap*) 30 mg PO BID [facility] Stop: 01/21/18 09:01 Last Admin: 01/17/18 08:51 Dose: 30 mg Warfarin Sodium (Coumadin Tab(*)) 4 mg PO 1700 [facility] PRN Reason: Protocol Vital Signs - 8 hr 01/17/18 01/17/18 08:00 11:49 Temperature 97.7 F 98.2 F Pulse Rate 64 65 Respiratory 16 16 Rate Blood Pressure 93/39 96/37 (mmHg) O2 Sat by Pulse 96 100 Oximetry Oxygen Devices in Use Now: None Appearance: well developed elderly female A+O x3 in NAD Eyes: No Scleral Icterus, PERRLA Ears/Nose/Mouth/Throat: NL Teeth, Lips, Gums, Mucous Membranes Moist Neck: NL Appearance and Movements; NL JVP Respiratory: Symmetrical Chest Expansion and Respiratory Effort, Clear to Auscultation Cardiovascular: NL Sounds; No Murmurs; No JVD, RRR, No Edema Abdominal: NL Sounds; No Tenderness; No Distention Extremities: No Edema, No Clubbing, Cyanosis Skin: No Rash or Ulcers, No Nodules or Sclerosis Neurological: Alert and Oriented x 3, NL Sensation, NL Gait, NL Muscle Strength and Tone Lines/Tubes/Other Access: Clean, Dry and Intact PICC Line Nutrition: Taking PO's Result Diagrams: 01/17/18 05:25 01/17/18 05:25 Assess/Plan/Problems-Billing Assessment: 87 yo female with a PMH of afib, psoriatic arthritis, osteoporosis, dementia who presented to the emergency department on 01/16 with c/o wekaness and fall testing positive for Influenza - Patient Problems (1) Influenza Comment: Influenza B Afebrile today (101 on admission), no leukocytosis continue Tamiflu renally dosed Genralized weakness, per son this has worsened over the last several months d/t pt being sedentary (2) EILEEN (acute kidney injury) Comment: - creatinine a little elevated above baseline - continue gentle IVFs - Recheck BMP in am (3) Electrolyte abnormality Comment: -hypokalemic - give replacement and recheck in am, add on Mg+ (4) Psoriatic arthritis Comment: On weekly MTX. (5) Dementia Comment: continue aricept (6) Afib Comment: EKG showing SR with RBBB Metoprolol and coumadin home meds - metoprolol on hold this morning due to soft BPs. (7) DVT prophylaxis Comment: coumadin Status and Disposition: inpatient with Influenza. PT eval.
[2018-01-17] MEDS: Warfarin TAB(*) 4 MG PO SCH (18:12)
[2018-01-17] MEDS: Docusate CAP* 100 MG PO SCH (22:31)
[2018-01-18 01:16] LABS: Urine Appearance Cloudy; Urine Blood 1+ (Negative); Urine Color Yellow; Urine Ketones Negative (Negative); Urine Protein Negative (Negative); Urine Specific Gravity 1.015 (1.010-1.030); Urine Urobilinogen Negative (Negative)
[2018-01-18 05:49] LABS: INR 1.58 (0.77-1.02)
[2018-01-18 05:52] LABS: ABS Basophils 0.1 10^3/ul (0-0.2); ABS Eosinophils 0.3 10^3/ul (0-0.6); ABS Lymphocytes 1.9 10^3/ul (1.0-4.8); ABS Monocytes 0.7 10^3/ul (0-0.8); ABS Neutrophils 4.6 10^3/ul (1.5-7.7); ABS Nucleated RBC 0 10^3/ul; Eosinophil % 4.4 % (0-6); Hematocrit 27 % (35-47); Hemoglobin 9.3 g/dl (12.0-16.0); Lymphocyte % 24.8 % (25-47); Mean Corpuscular HGB Conc 34 g/dl (31-36); Mean Corpuscular Hemoglobin 36 pg (27-31); Mean Corpuscular Volume 106 fL (80-97); Mean Platelet Volume 10 um3 (7.4-10.4); Nucleated Red Blood Cells % 0; Platelet Count 137 10^3/ul (150-450); Red Blood Count 2.56 10^6/ul (4.0-5.4); Red Cell Distribution Width 15 % (10.5-15); White Blood Count 7.6 10^3/ul (3.5-10.8)
[2018-01-18 05:57] LABS: EGFR Non-African American 48.6 (>60)
[2018-01-18] MEDS ORDERED: Magnesium Sulfate 2 GM IV* 2 GM/50 ML BAG IVPB ONE (08:33)
[2018-01-18] MEDS: Oseltamivir CAP* 30 MG CAP PO SCH ×2 (09:35→20:44)
[2018-01-18] MEDS: BuPROPion XL* 300 MG TAB.XL PO SCH (09:35)
[2018-01-18] MEDS: Donepezil TAB* 5 MG PO SCH (09:35)
[2018-01-18] MEDS: Metoprolol Succinate XL TAB* 25 MG PO SCH ×2 (09:35→17:05)
[2018-01-18] MEDS: Docusate CAP* 100 MG PO SCH ×2 (09:35→20:45)
--- NOTE | 2018-01-18 09:55 | PN ---
Subjective Date of Service: 01/18/18 Interval History: Pt reports she is feeling better today. Denies fever/chills. No cough. Denies SOB/CP. No N/V/D. Reports her appetite is a little better today and she feels stronger. Denies any further dizziness and lightheadedness today with position change. Reports she was able to ambulate with walker independently with stand by assist. Objective Active Medications: Acetaminophen (Tylenol Tab*) 650 mg PO Q4H PRN PRN Reason: FEVER/PAIN Bupropion HCl (Bupropion Xl*) 300 mg PO DAILY [facility] PRN Reason: Protocol Last Admin: 01/18/18 09:35 Dose: 300 mg Docusate Sodium (Colace Cap*) 200 mg PO BID [facility] Last Admin: 01/18/18 09:35 Dose: 200 mg Donepezil HCl (Aricept Tab*) 5 mg PO DAILY [facility] Last Admin: 01/18/18 09:35 Dose: 5 mg Sodium Chloride (Ns 0.9% 1000 Ml*) 1,000 mls @ 100 mls/hr IV PER RATE [facility] Last Admin: 01/16/18 22:40 Dose: 100 mls/hr Metoprolol Succinate (Toprol Xl Tab*) 50 mg PO QAM [facility] Last Admin: 01/18/18 09:35 Dose: 50 mg Metoprolol Succinate (Toprol Xl Tab*) 25 mg PO QPM [facility] Last Admin: 01/17/18 17:39 Dose: Not Given Ondansetron HCl (Zofran Inj*) 4 mg IV Q6H PRN PRN Reason: NAUSEA Oseltamivir Phosphate (Tamiflu Cap*) 30 mg PO BID [facility] Stop: 01/21/18 09:01 Last Admin: 01/18/18 09:35 Dose: 30 mg Warfarin Sodium (Coumadin Tab(*)) 4 mg PO 1700 [facility] PRN Reason: Protocol Last Admin: 01/17/18 18:12 Dose: 4 mg Vital Signs - 8 hr 01/18/18 01/18/18 03:48 08:21 Temperature 98.3 F 98.0 F Pulse Rate 77 74 Respiratory 20 16 Rate Blood Pressure 108/37 120/54 (mmHg) O2 Sat by Pulse 96 96 Oximetry Oxygen Devices in Use Now: None Appearance: well developed elderly female sitting up in a chair A+O x3 Eyes: No Scleral Icterus, PERRLA Ears/Nose/Mouth/Throat: NL Teeth, Lips, Gums, Mucous Membranes Moist Neck: NL Appearance and Movements; NL JVP Respiratory: Symmetrical Chest Expansion and Respiratory Effort, Clear to Auscultation Cardiovascular: NL Sounds; No Murmurs; No JVD, RRR, No Edema Abdominal: NL Sounds; No Tenderness; No Distention Extremities: No Edema, No Clubbing, Cyanosis Skin: No Rash or Ulcers, No Nodules or Sclerosis Neurological: Alert and Oriented x 3, NL Sensation, NL Muscle Strength and Tone Lines/Tubes/Other Access: Clean, Dry and Intact Peripheral IV Nutrition: Taking PO's Result Diagrams: 01/18/18 05:27 01/18/18 05:27 Assess/Plan/Problems-Billing Assessment: 87 yo female with a PMH of afib, psoriatic arthritis, osteoporosis, dementia who presented to the emergency department on 01/16 with c/o wekaness and fall testing positive for Influenza - Patient Problems (1) Influenza Comment: Influenza B Afebrile today (101 on admission), no leukocytosis continue Tamiflu renally dosed Genralized weakness, per son this has worsened over the last several months d/t pt being sedentary - weakness is improving today. PT yesterday recommended continued strength training. I have requested staff ambulate pt and determine if she can go home today. Will also await PT visit today. (2) EILEEN (acute kidney injury) Comment: - Improving with IVFs, creatinine at baseline. (3) Electrolyte abnormality Comment: -Replace Mg+ and K+ today (4) Psoriatic arthritis Comment: On weekly MTX. (5) Dementia Comment: continue aricept (6) Afib Comment: EKG showing SR with RBBB Continue Metoprolol and coumadin - INR 2.04 yesterday down today to 1.58 today, but she missed a dose of coumadin - plan to continue home dose of 4 mg po daily - Continue to monitor INR (7) DVT prophylaxis Comment: coumadin Status and Disposition: inpatient with Influenza. PT following. Possible DC home today or tomorrow.
[2018-01-18] MEDS ORDERED: Potassium Chloride LIQUID* 20 MEQ PACKET PO ONE (12:00)
[2018-01-18] MEDS: Warfarin TAB(*) 4 MG PO SCH (17:05)
[2018-01-18] MEDS: Acetaminophen TAB* 325 MG PO PRN (17:05)
[2018-01-19 06:05] LABS: ABS Basophils 0.1 10^3/ul (0-0.2); ABS Eosinophils 0.4 10^3/ul (0-0.6); ABS Lymphocytes 1.4 10^3/ul (1.0-4.8); ABS Monocytes 0.9 10^3/ul (0-0.8); ABS Neutrophils 5.4 10^3/ul (1.5-7.7); ABS Nucleated RBC 0 10^3/ul; Eosinophil % 5.4 % (0-6); Hematocrit 31 % (35-47); Hemoglobin 10.4 g/dl (12.0-16.0); Lymphocyte % 17.4 % (25-47); Mean Corpuscular HGB Conc 34 g/dl (31-36); Mean Corpuscular Hemoglobin 36 pg (27-31); Mean Corpuscular Volume 106 fL (80-97); Mean Platelet Volume 10 um3 (7.4-10.4); Nucleated Red Blood Cells % 0; Platelet Count 147 10^3/ul (150-450); Red Blood Count 2.89 10^6/ul (4.0-5.4); Red Cell Distribution Width 16 % (10.5-15); White Blood Count 8.2 10^3/ul (3.5-10.8)
[2018-01-19 06:09] LABS: INR 1.71 (0.77-1.02)
[2018-01-19 06:10] LABS: EGFR Non-African American 45.7 (>60)
[2018-01-19] MEDS: Docusate CAP* 100 MG PO SCH (09:58)
[2018-01-19] MEDS: BuPROPion XL* 300 MG TAB.XL PO SCH (09:58)
[2018-01-19] MEDS: Metoprolol Succinate XL TAB* 25 MG PO SCH (09:59)
[2018-01-19] MEDS: Acetaminophen TAB* 325 MG PO PRN (09:59)
[2018-01-19] MEDS: Donepezil TAB* 5 MG PO SCH (09:59)
[2018-01-19] MEDS: Oseltamivir CAP* 30 MG CAP PO SCH (10:01)
[2018-01-19 11:18] VITALS: BP 130/68
--- NOTE | 2018-01-19 12:13 | PN ---
Subjective Date of Service: 01/19/18 Interval History: Ms. Francisco states that she is feeling quite well today and is eager for discharge to home. Objective Active Medications: Acetaminophen (Tylenol Tab*) 650 mg PO Q4H PRN Bupropion HCl (Bupropion Xl*) 300 mg PO DAILY [facility] Docusate Sodium (Colace Cap*) 200 mg PO BID [facility] Donepezil HCl (Aricept Tab*) 5 mg PO DAILY [facility] Metoprolol Succinate (Toprol Xl Tab*) 50 mg PO QAM [facility] Metoprolol Succinate (Toprol Xl Tab*) 25 mg PO QPM [facility] Ondansetron HCl (Zofran Inj*) 4 mg IV Q6H PRN Oseltamivir Phosphate (Tamiflu Cap*) 30 mg PO BID [facility] Warfarin Sodium (Coumadin Tab(*)) 4 mg PO 1700 [facility] Vital Signs: Temp Pulse Resp BP Pulse Ox 97.3 F 68 18 130/68 99 01/19/18 11:17 01/19/18 11:17 01/19/18 11:17 01/19/18 11:17 01/19/18 11:17 Oxygen Devices in Use Now: None Appearance: Female sitting up in chair in NAD Eyes: No Scleral Icterus Ears/Nose/Mouth/Throat: Mucous Membranes Moist Neck: Trachea Midline Respiratory: Symmetrical Chest Expansion and Respiratory Effort, Clear to Auscultation Cardiovascular: NL Sounds; No Murmurs; No JVD, No Edema Abdominal: NL Sounds; No Tenderness; No Distention Lymphatic: No Cervical Adenopathy Extremities: No Edema Skin: No Rash or Ulcers Neurological: Alert and Oriented x 3, NL Muscle Strength and Tone Nutrition: Taking PO's Result Diagrams: 01/19/18 05:24 01/19/18 05:24 Microbiology and Other Data: Vital Signs: Temp Pulse Resp BP Pulse Ox 97.3 F 68 18 130/68 99 01/19/18 11:17 01/19/18 11:17 01/19/18 11:17 01/19/18 11:17 01/19/18 11:17 Assess/Plan/Problems-Billing Assessment: Ms. Francisco is an 87 yo female with a PMH of afib, psoriatic arthritis, osteoporosis, dementia who presented to the emergency department on 01/16 with c/ o weakness and fall testing positive for Influenza. - Patient Problems (1) Influenza Comment: - Has remained afebrile since admission. - Continue Tamiflu renally dosed - Pt states that she is independent with ambulation. (2) EILEEN (acute kidney injury) Comment: - Resolved. (3) Afib Comment: - EKG showing SR with RBBB - Continue metoprolol and coumadin. (4) Dementia Comment: - Continue aricept. - Patient with short term memory deficits, I question if she should continue driving. Will refer back to PCP for further discussions with family. (5) Electrolyte abnormality Comment: - Resolved. (6) Psoriatic arthritis Comment: - Continue home regimen. (7) DVT prophylaxis Comment: - Coumadin. Status and Disposition: Inpatient. Discharge to home.
--- NOTE | 2018-01-20 08:50 | DS ---
CC: Dr. Ryan * [facility] MEDICINE DISCHARGE SUMMARY: DATE OF ADMISSION: 01/16/18 DATE OF DISCHARGE: 01/19/18 PRIMARY CARE PHYSICIAN: Dr. Ryan. ATTENDING PHYSICIAN: Dr. Zaik Fu * (dictation provided by Sherry King NP). PRIMARY DIAGNOSIS: Influenza B. SECONDARY DIAGNOSES: 1. Atrial fibrillation. 2. Osteoporosis. 3. Psoriasis. 4. Degenerative disk disease. 5. Psoriatic arthritis. PAST SURGICAL HISTORY: 1. Appendectomy. 2. History of a loop recorder. MEDICATIONS: Outpatient are as follows: 1. Tamiflu 30 mg p.o. b.i.d. x3 more days. 2. Calcium carbonate with vitamin D 1 tablet daily. 3. Metoprolol succinate 25 mg p.o. b.i.d. 4. Glucosamine 1500 mg p.o. daily. 5. Methotrexate 7.5 mg p.o. weekly. 6. Mometasone 0.1% topically t.i.d. p.r.n. 7. Folic acid 1 mg p.o. daily. 8. Nystatin ointment applied b.i.d. p.r.n. 9. Bupropion XL 300 mg p.o. daily. 10. Warfarin 4 mg daily. 11. Donepezil 5 mg daily. 12. Prolia 60 mg subcutaneously every 6 months. 11. Macrobid 100 mg twice daily for 7 days. HOSPITAL COURSE: Ms. Francisco is an 87-year-old female with a past medical history as mentioned above, who presented to the hospital on 01/16/18 with concern for weakness and a fall. Please see the dictated H and P from Talon Griffin NP, for complete details. In brief, the patient reports that she had some nausea and vomiting that had been intermittent for more than a month, and then her son noted that she was particularly increasingly weak over the past couple of days, resulting in a fall mainly prior to admission. In the emergency room, Ms. Francisco was confirmed to have influenza via nasal swab. She was admitted to the hospital for hydration and treatment. Ms. Francisco had no leukocytosis, but did have a fever to 101.5 on arrival. Ms. Francisco was treated with Tamiflu and IV fluids. With this, she has had good improvement in her symptoms. She is now able to ambulate independently on the unit. I will note that on arrival, the patient also had positive urinalysis with 3+ leuk esterase, 3+ wbc's, and 1+ bacteria. This was shown to have a positive culture with strep group B. Our plans will be to treat that with nitrofurantoin. Ms. Francisco is medically stable for discharge to home. I did review with the patient that she has been having some episodes of confusion mostly notably within this hospitalization, but the family also showed some concerns before this admission. I think that she needs close followup regarding driving, and the patient's son and family are aware and plan to provide increased support. DISPOSITION: Home. DIET: Regular. ACTIVITY: As tolerated. FOLLOWUP PLANS: 1. Please follow up with Dr. Ryan regarding treatment and good resolution of influenza and urinary tract infection. 2. Please follow up with Dr. Ryan regarding further conversations with family regarding safety for continued driving. TIME SPENT: Approximately 60 minutes was spent on the discharge of this patient ; more than half the time was spent with the patient at the bedside reviewing the events leading up to to this hospitalization, performing the physical examination, and reviewing my plan of care. SHERRY KING NP [id number]/KURT #: [id number] LEONA
== END 2018-01-19 13:57 | disposition home or self-care (01) | DRG 194 ==
LOC: ED 13:48 → MEDTELE 17:46 → OBSVTOIN 19:26
PROVIDERS: ADMIT Internal Medicine; ATTEND Internal Medicine
DX: J10.1 Influenza due to other identified influenza virus with other respiratory manifestations (principal); N39.0 Urinary tract infection, site not specified; N17.9 Acute kidney failure, unspecified; I95.9 Hypotension, unspecified; I48.91 Unspecified atrial fibrillation; I45.10 Unspecified right bundle-branch block; E86.0 Dehydration; F03.90 Unspecified dementia, unspecified severity, without behavioral disturbance, psychotic disturbance, mood disturbance, and anxiety; M81.0 Age-related osteoporosis without current pathological fracture; L40.9 Psoriasis, unspecified; L40.50 Arthropathic psoriasis, unspecified; B95.1 Streptococcus, group B, as the cause of diseases classified elsewhere; M51.36 Other intervertebral disc degeneration, lumbar region; Z66 Do not resuscitate; W18.30XA Fall on same level, unspecified, initial encounter; Z91.81 History of falling; Y92.009 Unspecified place in unspecified non-institutional (private) residence as the place of occurrence of the external cause; Z79.01 Long term (current) use of anticoagulants; Z79.899 Other long term (current) drug therapy; Z88.2 Allergy status to sulfonamides; Z83.3 Family history of diabetes mellitus; Z84.0 Family history of diseases of the skin and subcutaneous tissue; Z87.891 Personal history of nicotine dependence
CPT/HCPCS: 36415; 70450; 71045; 72170; 72192; 80048; 80053; 81003; 81015; 82550; 83605; 83735; 84484; 85025; 85610; 85730; 86140; 87040; 87077; 87086; 87502; 93005; 99284; A9270-GY; J2405; J3475

== ENCOUNTER 2018-04-14 11:48 | Emergency (ER) | payer MEDICARE ==
--- NOTE | 2018-04-14 12:54 | RAD ---
HISTORY: Fall, facial injury COMPARISONS: January 16, 2015 TECHNIQUE: Multiple contiguous axial CT scans were obtained of the head without intravenous contrast. FINDINGS: HEMORRHAGE/INFARCT: There is no hemorrhage or acute infarct. MASSES/SHIFT: There is no mass or shift. EXTRA-AXIAL SPACES: There are no extra-axial fluid collections. SULCI AND VENTRICLES: There is diffuse and proportional enlargement of the sulci and ventricles. CEREBRUM: There is hypoattenuation of the periventricular and subcortical white matter. BRAINSTEM: There are no focal parenchymal abnormalities. CEREBELLUM: There are no focal parenchymal abnormalities. VESSELS: There is calcification of the cavernous segments of the internal carotid arteries bilaterally and of the distal left vertebral artery. PARANASAL SINUSES: The paranasal sinuses are clear. ORBITS: The orbits are unremarkable. BONES AND SOFT TISSUE: No bone or soft tissue abnormalities are noted. OTHER: None IMPRESSION: NO ACUTE INTRACRANIAL PATHOLOGY. DIFFUSE INVOLUTIONAL CHANGE WITH CHRONIC SMALL VESSEL ISCHEMIC CHANGES.
--- NOTE | 2018-04-14 12:56 | RAD ---
HISTORY: Fall, facial injury COMPARISONS: July 23, 2017 TECHNIQUE: Multiple contiguous axial CT scans were obtained of the face without intravenous contrast, with coronal and sagittal multiplanar reformations. FINDINGS: BONES: There is no displaced fracture or dislocation. The orbital rim is intact. The zygomatic arch is intact. The pterygoid plates are intact. There is diffuse osteopenia. Degenerative changes noted of the spine. ORBITS: The globes are round. The optic nerves are symmetric. The extraocular musculature is normal. There is no post septal or intraconal inflammatory change. There is no retrobulbar hematoma. PARANASAL SINUSES: The nasal septum is deviated to the left. The paranasal sinuses are clear. BRAIN AND SOFT TISSUE: Unremarkable. OTHER: None. IMPRESSION: NO FACIAL FRACTURE.
--- NOTE | 2018-04-14 13:01 | RAD ---
HISTORY: Fall, facial injury COMPARISONS: July 23, 2017 TECHNIQUE: Multiple contiguous axial CT scans were obtained of the cervical spine without intravenous contrast, with coronal and sagittal multiplanar reformations. FINDINGS: BRAIN: The visualized brain is unremarkable CENTRAL CANAL: Evaluation of the central canal is limited on CT technique; however, there is no obvious canalicular mass or epidural hemorrhage. ALIGNMENT: There is straightening of the cervical lordosis. There is trace anterolisthesis of C7 on T1 VERTEBRAL BODIES: There is diffuse osteopenia. Bilateral cervical ribs are noted at C7. There is multilevel anterolateral marginal osteophyte formation. There is no displaced fracture or dislocation. There is fusion of C3 on C4. JOINTS: There is uncovertebral and facet osteoarthritis. There is osteoarthritis of the atlantoaxial articulation. MUSCULATURE: Unremarkable INTERVERTEBRAL DISCS: There is diffuse loss of intervertebral disc height. AXIAL IMAGES: On axial images, there is neural foraminal narrowing at C5-C6 and C6-C7. There is no osseous central canal stenosis. SOFT TISSUES: The visualized soft tissues of the neck are unremarkable. The prevertebral fat stripe is preserved. OTHER: None. IMPRESSION: 1. OSTEOPENIA. 2. DEGENERATIVE DISC DISEASE AND OSTEOARTHRITIS. 3. NO ACUTE OSSEOUS INJURY TO THE CERVICAL SPINE.
--- NOTE | 2018-04-14 13:56 | RAD ---
HISTORY: Fall, right hip pain COMPARISONS: June 24, 2011 VIEWS: 3, Frontal view of the pelvis with frontal and frog-leg views of the right hip FINDINGS: BONE DENSITY: There is diffuse osteopenia. BONES: There is no displaced fracture. JOINTS: There is mild osteoarthritis of the hips. There is moderate osteoarthrosis of the SI joints. ALIGNMENT: There is no dislocation. SOFT TISSUES: Unremarkable. OTHER FINDINGS: Degenerative changes noted of the spine. IMPRESSION: 1. OSTEOPENIA. 2. OSTEOARTHRITIS. 3. NO RADIOGRAPHIC EVIDENCE FOR HIP FRACTURE. X-RAYS MAY BE NEGATIVE WITH NONDISPLACED HIP FRACTURE, IF THERE IS PERSISTENT CLINICAL CONCERN, RECOMMEND CONSIDERATION OF MRI. IN THE SETTING OF CONTRAINDICATION TO MRI OR LIMITATION IN EMERGENT ACCESS TO MRI, CT WOULD BE SUGGESTED.
--- NOTE | 2018-04-14 13:57 | RAD ---
Indication: Fall, bilateral foot pain. 4 views of the right foot and 4 views of left foot are reviewed. Periosteal reaction involving the fourth metatarsal of the right foot is noted. This may represent stress reaction. Clinical correlation is suggested. The left foot demonstrates no fracture. No other bone or joint abnormality is noted. IMPRESSION: Periosteal reaction involving the fourth right metatarsal. No other fractures are noted. Stress related change should BE considered.
[2018-04-14] MEDS ORDERED: Acetaminophen TAB* 325 MG PO ONE (14:22)
--- NOTE | 2018-04-14 15:37 | ED ---
Dixon Bowen Gabriel, scribed for Nadeem James MD on 04/14/18 at 1218 . Lower Extremity - HPI Summary HPI Summary: This patient is a 87 year old F BIBA to [facility] s/p mechanical fall that occurred this morning in her kitchen while she was getting coffee. The patient rates the pain 4/10 in severity. Patient reports left ankle pain and hip pain. Patient denies LOC, neck pain, and head trauma - History of Current Complaint Chief Complaint: EDExtremityLower Stated Complaint: FALL Time Seen by Provider: 04/14/18 12:07 Hx Obtained From: Patient Mechanism Of Injury: Fall From A Standing Position Onset of Pain: Immediate Onset/Duration: Still Present Severity Initially: Mild Severity Currently: Mild Pain Intensity: 4 Pain Scale Used: 0-10 Numeric Associated Signs And Symptoms: Positive: Negative - LOC, neck pain, and head trauma., Other - left ankle pain and hip pain - Allergies/Home Medications Allergies/Adverse Reactions: Allergies Allergy/AdvReac Type Severity Reaction Status Date / Time sulfamethoxazole Allergy Hives Verified 01/16/18 14:45 [From Bactrim] trimethoprim [From Bactrim] Allergy Hives Verified 01/16/18 14:45 one that starts with a s Allergy Hives Uncoded 08/20/13 23:40 Home Medications: Home Medications Glucosamine CAP (NF) 1 cap PO DAILY 04/14/18 [History Confirmed 04/14/18] Sertraline* [Zoloft*] 25 mg PO DAILY 04/14/18 [History Confirmed 04/14/18] PMH/Surg Hx/FS Hx/Imm Hx Endocrine/Hematology History: Denies: Hx Diabetes Cardiovascular History: Reports: Hx Atrial Fibrillation, Hx Hypertension, Other Cardiovascular Problems/Disorders - Afib Denies: Hx Angina, Hx Coronary Artery Disease, Hx Hypercholesterolemia, Hx Myocardial Infarction, Hx Peripheral Vascular Disease, Hx Valvular Heart Disease Respiratory History: Denies: Hx Asthma, Hx Chronic Obstructive Pulmonary Disease (COPD) GI History: Reports: Hx Ulcer History: Reports: Other Problems/Disorders - stress incontinence per pt Musculoskeletal History: Reports: Hx Arthritis, Hx Osteoporosis Sensory History: Reports: Hx Contacts or Glasses Denies: Hx Legally Blind, Hx Deafness, Hx Hearing Aid Opthamlomology History: Reports: Hx Contacts or Glasses Denies: Hx Legally Blind Neurological History: Reports: Other Neuro Impairments/Disorders - degenerative disc disease Psychiatric History: Denies: Hx Inpatient Treatment - Surgical History Surgery Procedure, Year, and Place: appendectomy. loop recorder - Immunization History Date of Tetanus Vaccine: unknown Infectious Disease History: No Infectious Disease History: Denies: Hx of Known/Suspected MRSA, Traveled Outside the [place] in Last 30 Days - Family History Known Family History: Positive: Cardiac Disease, Diabetes, Other - CVA - Social History Alcohol Use: None Substance Use Type: Reports: None Smoking Status (MU): Former Smoker Type: Cigarettes Have You Smoked in the Last Year: No Review of Systems Negative: Fever Musculoskeletal: Negative - neck pain, and head trauma. Positive: Other - left ankle pain and hip pain. Neurological: Negative - LOC All Other Systems Reviewed And Are Negative: Yes Physical Exam - Summary Physical Exam Summary: VITAL SIGNS: Reviewed. GENERAL: Patient is a elderly female who is lying comfortable in the stretcher. Patient is not in any acute respiratory distress. HEAD AND FACE: No signs of trauma. No ecchymosis, hematomas or skull depressions. No sinus tenderness. EYES: PERRLA, EOMI x 2, No injected conjunctiva, no nystagmus. EARS: Hearing grossly intact. Ear canals and tympanic membranes are within normal limits. MOUTH: Oropharynx within normal limits. NECK: Supple, trachea is midline, no adenopathy, no JVD, no carotid bruit, no c- spine tenderness, neck with full ROM. CHEST: Symmetric, no tenderness at palpation LUNGS: Clear to auscultation bilaterally. No wheezing or crackles. CVS: Regular rate and rhythm, S1 and S2 present, no murmurs or gallops appreciated. ABDOMEN: Soft, non-tender. No signs of distention. No rebound no guarding, and no masses palpated. Bowel sounds are normal. EXTREMITIES: good distal pulses, decreased ROM in the right hip and both ankles NEURO: Alert and oriented x 3. No acute neurological deficits. Speech is normal and follows commands. SKIN: abrasion to the bridge of the nose, ecchymosis of the right orbital Triage Information Reviewed: Yes Vital Signs On Initial Exam: Initial Vitals Temp Pulse Resp BP Pulse Ox 98.5 F 60 20 116/57 98 04/14/18 12:04 04/14/18 12:04 04/14/18 12:04 04/14/18 12:04 04/14/18 12:04 Vital Signs Reviewed: Yes Diagnostics - Vital Signs Vital Signs Temp Pulse Resp BP Pulse Ox 04/14/18 12:04 98.5 F 60 20 116/57 98 - Laboratory Lab Statement: Any lab studies that have been ordered have been reviewed, and results considered in the medical decision making process. - Radiology foot xray Radiology Interpretation Completed By: Radiologist - Periosteal reaction involving the fourth right metatarsal. No other fractures are noted. Stress related change should BE considered. Dr. James has reviewed this report hip xray Radiology Interpretation Completed By: Radiologist - OSTEOPENIA. 2. OSTEOARTHRITIS. 3. NO RADIOGRAPHIC EVIDENCE FOR HIP FRACTURE. X-RAYS MAY BE NEGATIVE WITH NONDISPLACED HIP FRACTURE, IF THERE IS PERSISTENT CLINICAL CONCERN , RECOMMEND CONSIDERATION OF MRI. IN THE SETTING OF CONTRAINDICATION TO MRI OR LIMITATION IN EMERGENT ACCESS TO MRI, CT WOULD BE SUGGESTED. Dr. James has reviewed this report - CT Maxillofacial CT CT Interpretation Completed By: Radiologist - no facial fracture. Dr. James has reviewed this report CT-C spine CT Interpretation Completed By: Radiologist - 1. OSTEOPENIA. 2. DEGENERATIVE DISC DISEASE AND OSTEOARTHRITIS. 3. NO ACUTE OSSEOUS INJURY TO THE CERVICAL SPINE. Dr. James has reviewed this report CT brain CT Interpretation Completed By: Radiologist - NO ACUTE INTRACRANIAL PATHOLOGY. Dr. James has reviewed this report Lower Extremity Course/Dx - Course Assessment/Plan: Patient is an 87-year-old female who presents to the emergency room with a chief complaint of bilateral foot pain. The patient reports that she lost her balance and fell. She also reports mild right hip pain and pain in the face since the patient had facial contusion. Denies any loss of consciousness. She denies any headache or neck pain. Maxillofacial CT impression: No facial fracture. C-spine CT impression: Osteopenia. No acute osseous injury to the cervical spine. Head CT impression: Noncontributory pathology. Bilateral foot x-ray impression: Periosteal reaction involving the fourth right metatarsal. No further fractures are noted. Right hip x-ray shows osteopenia. Osteoarthritis. No radiographic evidence of hip fracture. The patient was given Toradol and Tylenol for the pain. The patient was ambulating in the emergency department and she was able to ambulate without any difficulty. Therefore this time the patient will be discharged home with follow -up with primary care physician. All questions were answered and all CONCERNS were addressed. - Diagnoses Differential Diagnosis/HQI/PQRI: Positive: Arthritis, Bursitis, Fracture (Closed ), Sprain, Strain Provider Diagnoses: Accidental fall, Facial contusion, Hip pain, Leg pain Discharge - Sign-Out/Discharge Documenting (check all that apply): Discharge/Admit/Transfer - Discharge Plan Condition: Stable Disposition: HOME Patient Education Materials: Fall Prevention for Older Adults (ED), Scalp Contusion in Adults (ED), Hip Pain (ED), Hip Contusion (ED), Facial Contusion ( ED) Referrals: Mauri Ryan MD [Primary Care Provider] - 3 Days Additional Instructions: RETURN TO THE ER FOR ANY NEW OR WORSENING SYMPTOMS - Billing Disposition and Condition Condition: STABLE Disposition: HOME The documentation as recorded by the Dixon mason Gabriel accurately reflects the service I personally performed and the decisions made by Jacob sánchez Walter, MD.
[2018-04-14 17:30] VITALS: BP 110/62
== END 2018-04-14 18:01 | disposition home or self-care (01) ==
LOC: ED 11:48
DX: S00.93XA Contusion of unspecified part of head, initial encounter (principal); W19.XXXA Unspecified fall, initial encounter; Y92.9 Unspecified place or not applicable; M79.606 Pain in leg, unspecified; M25.552 Pain in left hip; Z87.891 Personal history of nicotine dependence
CPT/HCPCS: 70450; 70486; 72125; 99283; A9270-GY

== ENCOUNTER 2018-04-15 14:06 | Inpatient (IN) | payer MEDICARE ==
[2018-04-15 14:56] LABS: ABS Basophils 0.1 10^3/ul (0-0.2); ABS Eosinophils 0.2 10^3/ul (0-0.6); ABS Lymphocytes 1.2 10^3/ul (1.0-4.8); ABS Monocytes 1.2 10^3/ul (0-0.8); ABS Nucleated RBC 0 10^3/ul; Eosinophil % 2.7 % (0-6); Hematocrit 28 % (35-47); Hemoglobin 9.6 g/dl (12.0-16.0); Lymphocyte % 14.2 % (25-47); Mean Corpuscular HGB Conc 34 g/dl (31-36); Mean Corpuscular Hemoglobin 36 pg (27-31); Mean Corpuscular Volume 105 fL (80-97); Mean Platelet Volume 9.4 um3 (7.4-10.4); Nucleated Red Blood Cells % 0; Platelet Count 201 10^3/ul (150-450); Red Blood Count 2.69 10^6/ul (4.0-5.4); Red Cell Distribution Width 15 % (10.5-15); White Blood Count 8.7 10^3/ul (3.5-10.8)
--- NOTE | 2018-04-15 14:59 | RAD ---
Indication: Weakness. Single frontal view of the chest performed at 1432 hours was reviewed. Comparison is made with previous exam dated January 16, 2018. No mediastinal shift is noted. Heart is of normal size and configuration. Lung chance are clear. Overall no changes noted since previous exam. IMPRESSION: NO ACTIVE CARDIOPULMONARY DISEASE IS NOTED.
[2018-04-15 15:11] LABS: INR 1.6 (0.77-1.02)
[2018-04-15 15:19] LABS: EGFR Non-African American 49.2 (>60)
--- NOTE | 2018-04-15 15:31 | RAD ---
Indication: Left hip pain. CT of the pelvis was obtained in the axial plane. Sagittal and coronal reconstructed images were obtained. The iliac crest demonstrates no evidence of fracture. Pelvic ring is otherwise intact. The superior and inferior pubic ramus are unremarkable. No fracture is noted. The left femoral head and neck shows no fracture. There may be some minimal degenerative changes of the left hip present. Uterus and ovaries are unremarkable. The urinary bladder is unremarkable. IMPRESSION: No definite fracture of the left hip is noted. Pelvic ring is intact.
[2018-04-15 16:59] LABS: Urine Appearance Clear; Urine Blood Negative (Negative); Urine Color Yellow; Urine Ketones Negative (Negative); Urine Protein Negative (Negative); Urine Specific Gravity 1.016 (1.010-1.030); Urine Urobilinogen Negative (Negative)
[2018-04-15] MEDS ORDERED: Docusate CAP* 100 MG PO PRN (18:42)
[2018-04-15] MEDS ORDERED: Ondansetron INJ* 2 MG/ML VIAL IV PRN (18:42)
[2018-04-15] MEDS: Acetaminophen TAB* 325 MG PO PRN (21:11)
[2018-04-15] MEDS: Metoprolol Succinate XL TAB* 25 MG PO SCH (21:12)
[2018-04-15] MEDS: Warfarin TAB(*) 4 MG PO SCH (21:12)
--- NOTE | 2018-04-15 21:44 | HP ---
CC: Dr. Ryan * HISTORY AND PHYSICAL: DATE OF ADMISSION: 04/15/18 PRIMARY CARE PROVIDER: Dr. Ryan. HEALTHCARE PROXY: Her son, Isidro. CODE STATUS: Full, discussed with the patient and her son. SOURCE OF INFORMATION: History was obtained from interview with the patient and her son, and review of past medical records. RELIABILITY: From the patient and family member is poor, from chart is excellent. CHIEF COMPLAINT: Could not get out of chair. HISTORY OF PRESENT ILLNESS: This 87-year-old female presented to emergency room yesterday after a fall from a standing position after turning quickly to get a cup of coffee, fall without loss of consciousness, chest pain, shortness of breath. She was discharged from the emergency room; however, went home and her family members were checking on her and she has mostly stayed in the chair, unable to get up, unable to feed herself, clothe or bathe herself. Discussion with the patient and her family members, she mostly spends her day in the chair. She did go to the store approximately three weeks ago, but otherwise has had poor self-care. The son indicates there has been no food in the house which the patient did not find distressing as she still had peanut butter. She does admit that she has been eating and drinking less. She has home nurses who indicated that they do not think she can care for herself any longer as relayed by the patient's son. The patient denies any fevers, chills, cough, diarrhea, constipation, symptoms, although does endorse nausea. No shortness of breath or chest pain. They note that they came to the emergency room today because she has had continued weakness that has been at least weeks to months and she has chronic pain in her lower extremities that was worse today after the fall. They note no other exacerbating symptoms other than fall yesterday, but rather gradual decline in her ability to care for herself and the family's ability to compensate and deliver care at home. Currently, she takes Tylenol for the pain in bilateral lower extremities. PAST MEDICAL HISTORY: Includes: 1. Atrial fibrillation, on Coumadin. 2. Osteoarthritis. 3. Osteoporosis. 4. Psoriasis. PAST SURGICAL HISTORY: 1. History of appendectomy. 2. Questionable history of cholecystectomy. HOME MEDICATIONS: Mostly obtained from Brian includes: 1. Coumadin 4 mg daily. 2. Prolia 60 mg every 6 months. 3. Calcium/vitamin D3 daily. 4. Wellbutrin XL 300 mg daily. 5. Methotrexate 7.5 mg weekly. 6. Glucosamine 1 cap daily. 7. Folic acid 1 mg daily. 8. Aricept 5 mg daily. 9. Mometasone 0.1% topically 3 times a day as needed. 10. Metoprolol succinate 50 mg in the morning and 25 mg in the evening. 11. Zoloft 25 mg daily. 12. Nystatin ointment topically twice daily as needed. No area identified. ALLERGIES: SULFAMETHOXAZOLE, TRIAMTERENE. FAMILY HISTORY: CVA. SOCIAL HISTORY: Quit tobacco 35 years prior. Lives alone in [facility]. Drinks no alcohol and no illicits. REVIEW OF SYSTEMS: Positive for intermittent nausea. Otherwise, all other systems reviewed are negative. PHYSICAL EXAMINATION GENERAL: Sitting up in bed, interactive, pleasant, no apparent distress. VITAL SIGNS: When seen in the emergency room 146/95, heart rate 65, respiratory rate is 16, 97% on room air, T-max in the emergency room is 97.3. HEENT: Oropharynx is clear. She has dry mucous membranes. Sclerae are anicteric. She has non-elevated JVD. No cervical or supraclavicular lymphadenopathy. LUNGS: Clear to auscultation. Diminished at the bases. HEART: She has a regular rate and rhythm. No murmurs, rubs, or gallops. ABDOMEN: Soft, nontender, nondistended. EXTREMITIES: Warm and well perfused without clubbing, cyanosis, or edema. She has less than 2 seconds cap refill. NEUROLOGIC: She is alert and oriented x3. Her cranial nerves II through XII are intact. She does have pain over bilateral knees without effusion. She has no apparent anxiety, agitation, or depression. She is in good spirits. She laughs sometimes inappropriately during the course of the interview. SKIN: Indicates bruising under her right eye. LABORATORY DATA: Pertinent labs reviewed. Hemoglobin 9.6, white blood cell count 8.7, platelets 201. INR is 1.6. Sodium is 136, BUN 22, creatinine 1.0. Lactic acid 1.7. Alk phos 32. Urine is bland except for ascorbic acid, somewhat concentrated with specific gravity of 1.016. Chest x-ray, impression: No active cardiopulmonary disease. Pelvis CT, impression: No definitive fracture of the left hip is noted. Pelvic ring is intact. EKG: Sinus rhythm, heart rate 62, normal axis, right bundle-branch block, T- wave inversions at 3. Otherwise, no ST-T wave changes. ASSESSMENT AND PLAN: This is an 87-year-old female presenting with difficulty getting up after a fall yesterday. The family is unable to care for her anymore. I had a samy discussion with the patient and her son. There is no acute problem at this time. We will make assisted with plan to engage Social Work for assistance in long-term care. They understand that assisted admission may cost them money and that may not count for days counted from Medicare to be placed in acute rehab. They are willing to accept this risk and its cost. No other acute findings. We will monitor in the hospital. 1. Atrial fibrillation. Continue Coumadin and metoprolol. 2. Subtherapeutic Coumadin. Recheck INR tomorrow. 3. Suspected dementia. Continue Aricept. 4. Pain control. Tylenol p.r.n. Can increase tramadol if needed. 5. Psoriasis. Continue methotrexate weekly. 7. DVT prophylaxis. Coumadin, recheck tomorrow. [id number]/[facility] #: [id number] [place]
[2018-04-15] MEDS ORDERED: traMADol TAB* 50 MG PO ONE (21:45)
[2018-04-15] MEDS: Nystatin TOP POWDER* 15 GM BTL TOPICAL SCH (23:21)
[2018-04-16 07:03] LABS: INR 1.97 (0.77-1.02)
[2018-04-16] MEDS: Sertraline* 25 MG TAB PO SCH (07:41)
[2018-04-16] MEDS: Folic Acid TAB* 1 MG PO SCH (07:41)
[2018-04-16] MEDS: Metoprolol Succinate XL TAB* 50 MG PO SCH (07:41)
[2018-04-16] MEDS: Acetaminophen TAB* 325 MG PO PRN (07:41)
[2018-04-16] MEDS: Donepezil TAB* 5 MG PO SCH (07:41)
[2018-04-16] MEDS: Nystatin TOP POWDER* 15 GM BTL TOPICAL SCH ×3 (07:46→20:11)
[2018-04-16] MEDS: BuPROPion XL* 300 MG TAB.XL PO SCH (11:09)
--- NOTE | 2018-04-16 16:14 | PN ---
Subjective Date of Service: 04/16/18 Interval History: Reports pain in her knees and feet. Notes this has been long standing and is about as severe as usual. She last took tylenol this AM We discussed adding something stronger if this is ineffective (tramadol) Objective Active Medications: Acetaminophen (Tylenol Tab*) 650 mg PO Q4H PRN PRN Reason: FEVER/PAIN Last Admin: 04/16/18 07:41 Dose: 650 mg Bupropion HCl (Bupropion Xl*) 300 mg PO DAILY [facility] PRN Reason: Protocol Last Admin: 04/16/18 11:09 Dose: 300 mg Docusate Sodium (Colace Cap*) 100 mg PO BID PRN PRN Reason: CONSTIPATION Donepezil HCl (Aricept Tab*) 5 mg PO DAILY [facility] Last Admin: 04/16/18 07:41 Dose: 5 mg Folic Acid (Folvite Tab*) 1 mg PO DAILY [facility] Last Admin: 04/16/18 07:41 Dose: 1 mg Methotrexate (Methotrexate Tab*) 7.5 mg PO WEEKLY [facility] Metoprolol Succinate (Toprol Xl Tab*) 25 mg PO QPM [facility] Last Admin: 04/15/18 21:12 Dose: 25 mg Metoprolol Succinate (Toprol Xl Tab*) 50 mg PO QAM [facility] Last Admin: 04/16/18 07:41 Dose: 50 mg Nystatin (Nystatin Top Powder*) 1 applic TOPICAL TID [facility] Last Admin: 04/16/18 07:46 Dose: 1 applic Ondansetron HCl (Zofran Inj*) 4 mg IV Q4H PRN PRN Reason: NAUSEA/VOMITING Sertraline HCl (Zoloft*) 25 mg PO DAILY [facility] Last Admin: 04/16/18 07:41 Dose: 25 mg Warfarin Sodium (Coumadin Tab(*)) 4 mg PO DAILY@1700 [facility] PRN Reason: Protocol Last Admin: 04/15/18 21:12 Dose: 4 mg Vital Signs - 8 hr 04/16/18 04/16/18 11:25 11:29 Temperature 97.8 F Pulse Rate 71 Respiratory 20 20 Rate Blood Pressure 100/45 (mmHg) O2 Sat by Pulse 97 Oximetry Oxygen Devices in Use Now: None Appearance: NAD Eyes: No Scleral Icterus, PERRLA Ears/Nose/Mouth/Throat: Clear Oropharnyx, Mucous Membranes Moist Neck: NL Appearance and Movements; NL JVP, Trachea Midline Respiratory: Symmetrical Chest Expansion and Respiratory Effort, Clear to Auscultation Cardiovascular: RRR, - - 2/6SEM Abdominal: NL Sounds; No Tenderness; No Distention, No Hepatosplenomegaly Lymphatic: No Cervical Adenopathy Extremities: No Edema, - - tenderness in b/l legs from knees to feet without obvious deformity Skin: - - bruising under right eye Neurological: Alert and Oriented x 3, - - interactive, pleasant, oriented, CN2- 12 intact Result Diagrams: 04/15/18 14:43 04/15/18 14:43 Assess/Plan/Problems-Billing Assessment: 87 yo F h/o afib on AC, OA, psoriasis presented with progressive inability to care for herself at home admitted to the hospital [facility] while family works with social work to locate an appropriate longterm care facility - Patient Problems (1) Failure to thrive Comment: Appears slowly progressive. 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
[2018-04-16] MEDS: Warfarin TAB(*) 4 MG PO SCH (18:13)
[2018-04-16] MEDS: Metoprolol Succinate XL TAB* 25 MG PO SCH (18:13)
[2018-04-16] MEDS: traMADol TAB* 50 MG PO PRN (20:10)
[2018-04-17] MEDS: traMADol TAB* 50 MG PO PRN (03:24)
[2018-04-17] MEDS: BuPROPion XL* 300 MG TAB.XL PO SCH (08:21)
[2018-04-17] MEDS: Acetaminophen TAB* 325 MG PO PRN (08:21)
[2018-04-17] MEDS: Sertraline* 25 MG TAB PO SCH (08:21)
[2018-04-17] MEDS: Metoprolol Succinate XL TAB* 50 MG PO SCH (08:21)
[2018-04-17] MEDS: Donepezil TAB* 5 MG PO SCH (08:21)
[2018-04-17] MEDS: Folic Acid TAB* 1 MG PO SCH (08:21)
[2018-04-17] MEDS: Nystatin TOP POWDER* 15 GM BTL TOPICAL SCH (08:24)
[2018-04-17 11:30] VITALS: BP 83/42
--- NOTE | 2018-04-17 13:20 | PN ---
Progress Note - Progress Note Date of Service: 04/17/18 Note: Time spent on discharge 45 minutes.
--- NOTE | 2018-04-17 15:11 | TRS ---
CC: Dr. Ryan. TRANSFER SUMMARY: DATE OF ADMISSION: DATE OF TRANSFER: 04/17/18. HISTORY OF PRESENT ILLNESS: This 87-year-old woman was brought by the family because they were no lo nger able to take care of her at home; she lives alone. She had been to the emergency room the day b ore after a fall and was discharged from the emergency room. No real change from her baseline was noted. She was placed on shelter care. Her usual medications will be continued. FINAL DIAGNOSES: 1. Failure to thrive. 2. Atrial fibrillation. 3. Psoriasis. This is the indication for methotrexate. 4. Mild dementia. I note on admission her INR was 1.97, although she said she has a machine that dispenses her medicati on on schedule, I am concerned that she may not be taking the medication properly. I am going to red uce her warfarin to 3 mg daily. Depending on her oral intake, this may or may not need to be increas ed in the future. I am recommending an INR on 04/20/18. TRANSFER MEDICATIONS: 1. Warfarin 3 mg daily. 2. Folic acid 1 mg daily. 3. Methotrexate 7.5 mg weekly. 4. Bupropion XL 300 mg daily. 5. Prolia 60 mg subcu every 6 months. 6. Donepezil 5 mg daily. 7. Metoprolol succinate 25 mg h.s. 8. Mometasone 0.1% topical cream t.i.d. p.r.n. 9. Nystatin 1 application b.i.d. p.r.n. 10. Calcium donny and vitamin D3 one tablet daily. 11. Metoprolol succinate XL 50 mg daily. 12. Glucosamine 1 capsule daily. Sertraline has been discontinued. I would recommend consideration of gradual dose reduction of her bupropion XL. DISPOSITION: The patient is transferred to [facility]. [id number]/[facility] #: [id number]
[2018-04-17] MEDS ORDERED: Warfarin TAB(*) 4 MG PO SCH (17:00)
[2018-04-17] MEDS ORDERED: Methotrexate TAB* 2.5 MG PO SCH (19:00)
--- NOTE | 2018-04-28 07:56 | ED ---
Hitesh Bowen Elizabeth, scribed for Yordy Mueller MD on 04/15/18 at 1458 . Complex/Multi-Sys Presentation - HPI Summary HPI Summary: This patient is a 89 year old F BIBA to [facility] with a chief complaint of left leg pain since this morning. The patient was discharged from [facility] 1 day ago. Symptoms aggravated by movement. Symptoms alleviated by lying down. The patient has had increased falls recently. Patient reports increased weakness, difficulty ambulating, bilateral leg and hip pain and swelling. Per triage note , the patient is unable to perform daily tasks or take care of herself. The patient takes Coumadin. - History Of Current Complaint Chief Complaint: EDGeneral Time Seen by Provider: 04/15/18 14:23 Hx Obtained From: Patient, Family/Line Tender - patient's son Onset/Duration: Lasting Hours, Still Present, Worse Since - this morning Timing: Constant Severity Currently: Mild Severity Initially: Mild Location: Pain At: - left leg and left hip Aggravating Factor(s): movement Alleviating Factor(s): rest Associated Signs And Symptoms: Positive: Weakness, Edema - bilateral leg swelling, Other - difficulty ambulating - Allergies/Home Medications Allergies/Adverse Reactions: Allergies Allergy/AdvReac Type Severity Reaction Status Date / Time sulfamethoxazole Allergy Hives Verified 01/16/18 14:45 [From Bactrim] trimethoprim [From Bactrim] Allergy Hives Verified 01/16/18 14:45 one that starts with a s Allergy Hives Uncoded 08/20/13 23:40 PMH/Surg Hx/FS Hx/Imm Hx Endocrine/Hematology History: Denies: Hx Diabetes Cardiovascular History: Reports: Hx Atrial Fibrillation, Hx Hypertension, Other Cardiovascular Problems/Disorders - Afib Denies: Hx Angina, Hx Coronary Artery Disease, Hx Hypercholesterolemia, Hx Myocardial Infarction, Hx Peripheral Vascular Disease, Hx Valvular Heart Disease Respiratory History: Denies: Hx Asthma, Hx Chronic Obstructive Pulmonary Disease (COPD) GI History: Reports: Hx Ulcer History: Reports: Other Problems/Disorders - stress incontinence per pt Musculoskeletal History: Reports: Hx Arthritis, Hx Osteoporosis Sensory History: Reports: Hx Contacts or Glasses Denies: Hx Legally Blind, Hx Deafness, Hx Hearing Aid Opthamlomology History: Reports: Hx Contacts or Glasses Denies: Hx Legally Blind Neurological History: Reports: Other Neuro Impairments/Disorders - degenerative disc disease Psychiatric History: Denies: Hx Inpatient Treatment - Surgical History Surgery Procedure, Year, and Place: appendectomy. loop recorder - Immunization History Date of Tetanus Vaccine: unknown Infectious Disease History: No Infectious Disease History: Denies: Hx of Known/Suspected MRSA, Traveled Outside the [place] in Last 30 Days - Family History Known Family History: Positive: Cardiac Disease, Diabetes, Other - CVA - Social History Alcohol Use: None Substance Use Type: Reports: None Smoking Status (MU): Former Smoker Type: Cigarettes Have You Smoked in the Last Year: No Review of Systems Constitutional: Other - unable to ambulate, recent falls Negative: Fever, Chills Negative: Erythema Negative: Sore Throat Negative: Chest Pain Negative: Shortness Of Breath, Cough Negative: Abdominal Pain, Vomiting, Nausea Negative: dysuria, hematuria Positive: Myalgia - bilateral leg and hip pain, Edema - bilateral leg edema Negative: Rash Neurological: Other - NEGATIVE DIZZINESS Positive: Weakness All Other Systems Reviewed And Are Negative: Yes Physical Exam - Summary Physical Exam Summary: Constitutional: Well-developed, Well-nourished, Alert. (-) Distressed Skin: Warm, Dry HENT: Normocephalic; Atraumatic Eyes: Conjunctiva normal Neck: Musculoskeletal ROM normal neck. (-) JVD, (-) Stridor, (-) Tracheal deviation Cardio: Rhythm regular, rate normal, Heart sounds normal; Intact distal pulses; The pedal pulses are 2+ and symmetric. Radial pulses are 2+ and symmetric. (-) Murmur Pulmonary/Chest wall: Effort normal. (-) Respiratory distress, (-) Wheezes, (-) Rales Abd: Soft, (-) Tenderness, (-) Distension, (-) Guarding, (-) Rebound Musculoskeletal: (-) Edema, Pain in left knee and hip with passive ROM of left hip Lymph: (-) Cervical adenopathy Neuro: Alert, Oriented x3 Psych: Mood and affect Normal Triage Information Reviewed: Yes Vital Signs On Initial Exam: Initial Vitals Temp Pulse Resp BP Pulse Ox 97.3 F 52 14 131/62 98 04/15/18 14:10 04/15/18 14:10 04/15/18 14:10 04/15/18 14:10 04/15/18 14:10 Vital Signs Reviewed: Yes Diagnostics - Vital Signs Vital Signs Temp Pulse Resp BP Pulse Ox 04/15/18 14:10 97.3 F 52 14 131/62 98 - Laboratory Lab Results: Lab Results 04/15/18 04/15/18 04/15/18 Range/Units 14:43 14:43 14:43 WBC 8.7 (3.5-10.8) 10^3/ul RBC 2.69 L (4.0-5.4) 10^6/ul Hgb 9.6 L (12.0-16.0) g/dl Hct 28 L (35-47) % MCV 105 H (80-97) fL MCH 36 H (27-31) pg MCHC 34 (31-36) g/dl RDW 15 (10.5-15) % Plt Count 201 (150-450) 10^3/ul MPV 9.4 (7.4-10.4) um3 Neut % (Auto) 69.1 (38-83) % Lymph % (Auto) 14.2 L (25-47) % [place] % (Auto) 13.3 H (0-7) % Eos % (Auto) 2.7 (0-6) % Baso % (Auto) 0.7 (0-2) % Absolute Neuts (auto) 6.0 (1.5-7.7) 10^3/ul Absolute Lymphs (auto) 1.2 (1.0-4.8) 10^3/ul Absolute Monos (auto) 1.2 H (0-0.8) 10^3/ul Absolute Eos (auto) 0.2 (0-0.6) 10^3/ul Absolute Basos (auto) 0.1 (0-0.2) 10^3/ul Absolute Nucleated RBC 0 10^3/ul Nucleated RBC % 0 INR (Anticoag Therapy) 1.60 H (0.77-1.02) APTT 30.6 (26.0-36.3) seconds Sodium 136 L (139-145) mmol/L Potassium 3.7 (3.5-5.0) mmol/L Chloride 104 (101-111) mmol/L Carbon Dioxide 26 (22-32) mmol/L Anion Gap 6 (2-11) mmol/L BUN 22 (6-24) mg/dL Creatinine 1.06 H (0.51-0.95) mg/dL Est GFR ( Amer) 63.2 (>60) Est GFR (Non-Af Amer) 49.2 (>60) BUN/Creatinine Ratio 20.8 H (8-20) Glucose 87 (70-100) mg/dL Lactic Acid (0.5-2.0) mmol/L Calcium 8.4 L (8.6-10.3) mg/dL Total Bilirubin 0.30 (0.2-1.0) mg/dL AST 18 (13-39) U/L ALT 11 (7-52) U/L Alkaline Phosphatase 32 L (34-104) U/L Troponin I 0.01 (<0.04) ng/mL Total Protein 6.7 (6.4-8.9) g/dL Albumin 3.4 (3.2-5.2) g/dL Globulin 3.3 (2-4) g/dL Albumin/Globulin Ratio 1.0 (1-3) Urine Color Urine Appearance Urine pH (5-9) Ur Specific [place] (1.010-1.030) Urine Protein (Negative) Urine Ketones (Negative) Urine Blood (Negative) Urine Nitrate (Negative) Urine Bilirubin (Negative) Urine Urobilinogen (Negative) Ur Leukocyte Esterase (Negative) Urine Glucose (Negative) Urine Ascorbic Acid (Negative) 04/15/18 04/15/18 Range/Units 14:43 16:37 WBC (3.5-10.8) 10^3/ul RBC (4.0-5.4) 10^6/ul Hgb (12.0-16.0) g/dl Hct (35-47) % MCV (80-97) fL MCH (27-31) pg MCHC (31-36) g/dl RDW (10.5-15) % Plt Count (150-450) 10^3/ul MPV (7.4-10.4) um3 Neut % (Auto) (38-83) % Lymph % (Auto) (25-47) % [place] % (Auto) (0-7) % Eos % (Auto) (0-6) % Baso % (Auto) (0-2) % Absolute Neuts (auto) (1.5-7.7) 10^3/ul Absolute Lymphs (auto) (1.0-4.8) 10^3/ul Absolute Monos (auto) (0-0.8) 10^3/ul Absolute Eos (auto) (0-0.6) 10^3/ul Absolute Basos (auto) (0-0.2) 10^3/ul Absolute Nucleated RBC 10^3/ul Nucleated RBC % INR (Anticoag Therapy) (0.77-1.02) APTT (26.0-36.3) seconds Sodium (139-145) mmol/L Potassium (3.5-5.0) mmol/L Chloride (101-111) mmol/L Carbon Dioxide (22-32) mmol/L Anion Gap (2-11) mmol/L BUN (6-24) mg/dL Creatinine (0.51-0.95) mg/dL Est GFR ( Amer) (>60) Est GFR (Non-Af Amer) (>60) BUN/Creatinine Ratio (8-20) Glucose (70-100) mg/dL Lactic Acid 1.7 (0.5-2.0) mmol/L Calcium (8.6-10.3) mg/dL Total Bilirubin (0.2-1.0) mg/dL AST (13-39) U/L ALT (7-52) U/L Alkaline Phosphatase (34-104) U/L Troponin I (<0.04) ng/mL Total Protein (6.4-8.9) g/dL Albumin (3.2-5.2) g/dL Globulin (2-4) g/dL Albumin/Globulin Ratio (1-3) Urine Color Yellow Urine Appearance Clear Urine pH 5.0 (5-9) Ur Specific [place] 1.016 (1.010-1.030) Urine Protein Negative (Negative) Urine Ketones Negative (Negative) Urine Blood Negative (Negative) Urine Nitrate Negative (Negative) Urine Bilirubin Negative (Negative) Urine Urobilinogen Negative (Negative) Ur Leukocyte Esterase Negative (Negative) Urine Glucose Negative (Negative) Urine Ascorbic Acid * A (Negative) Result Diagrams: 04/15/18 14:43 04/15/18 14:43 Lab Statement: Any lab studies that have been ordered have been reviewed, and results considered in the medical decision making process. - Radiology CXR Xray Interpretation: No Acute Changes - IMPRESSION: NO ACTIVE CARDIOPULMONARY DISEASE IS NOTED. Dr. Mueller has reviewed this report. Radiology Interpretation Completed By: Radiologist - CT CT Pelvis CT Interpretation: No Acute Changes - IMPRESSION: No definite fracture of the left hip is noted. Pelvic ring is intact. Dr. Mueller has reviewed this report. CT Interpretation Completed By: Radiologist - EKG 12:27 Cardiac Rate: NL - at 62 BPM EKG Rhythm: Sinus Rhythm EKG Interpretation: RBBB Complex Multi-Symp Course/Dx Course Of Treatment: This patient is a 89 year old F BIBA to [facility] with a chief complaint of left leg pain since this morning. The patient was discharged from [facility] 1 day ago. The patient has had increased falls recently. Patient reports increased weakness, difficulty ambulating, bilateral leg and hip pain and swelling. Per triage note, the patient is unable to perform daily tasks or take care of herself. An EKG reveals sinus rhythm at 62 BPM. CXR reveals, per radiologist, no active cardiopulmonary disease is noted. CT Pelvis reveals, per radiologist, no definite fracture of the left hip is noted. Pelvic ring is intact. ED physician has reviewed these radiology reports. Patient will be admitted to [facility] with dx frequent falls and multiple contusions. The patient is agreeable with this plan.This patient is a 89 year old F BIBA to [facility] with a chief complaint of left leg pain since this morning. The patient was discharged from [facility] 1 day ago. The patient has had increased falls recently. Patient reports increased weakness, difficulty ambulating, bilateral leg and hip pain and swelling. Per triage note, the patient is unable to perform daily tasks or take care of herself. An EKG reveals sinus rhythm at 62 BPM. CXR reveals, per radiologist, no active cardiopulmonary disease is noted. CT Pelvis reveals, per radiologist, no definite fracture of the left hip is noted. Pelvic ring is intact. ED physician has reviewed these radiology reports. Patient will be admitted to [facility]. The patient is agreeable with this plan. - Diagnoses Provider Diagnoses: Frequent falls, Multiple contusions Discharge - Sign-Out/Discharge Documenting (check all that apply): Discharge/Admit/Transfer - Discharge Plan Condition: Good Disposition: ADMITTED TO [facility] - Billing Disposition and Condition Condition: GOOD Disposition: Admitted to [facility] The documentation as recorded by the Hitesh mason Elizabeth accurately reflects the service I personally performed and the decisions made by me, Yordy Mueller MD.
== END 2018-04-17 14:45 | DRG 641 ==
LOC: ED 14:06 → MED 18:42 → OBSVTOIN 19:20
PROVIDERS: ADMIT Internal Medicine; ATTEND Internal Medicine
DX: R62.7 Adult failure to thrive (principal); I48.91 Unspecified atrial fibrillation; L40.9 Psoriasis, unspecified; G89.29 Other chronic pain; M79.662 Pain in left lower leg; M79.661 Pain in right lower leg; M25.562 Pain in left knee; M25.561 Pain in right knee; W18.30XA Fall on same level, unspecified, initial encounter; F03.90 Unspecified dementia, unspecified severity, without behavioral disturbance, psychotic disturbance, mood disturbance, and anxiety; M19.90 Unspecified osteoarthritis, unspecified site; M81.0 Age-related osteoporosis without current pathological fracture; Z88.2 Allergy status to sulfonamides; Z88.8 Allergy status to other drugs, medicaments and biological substances; Z82.3 Family history of stroke; Z79.01 Long term (current) use of anticoagulants; Z87.891 Personal history of nicotine dependence; Y92.009 Unspecified place in unspecified non-institutional (private) residence as the place of occurrence of the external cause
CPT/HCPCS: 36415; 71045; 72192; 80053; 81003; 83605; 84484; 85025; 85610; 85730; 87040; 93005; 99283; A9270-GY

== ENCOUNTER 2018-06-29 08:35 | Inpatient (IN) | payer MEDICARE ==
[2018-06-29 09:06] LABS: ABS Basophils 0.1 10^3/ul (0-0.2); ABS Eosinophils 0.4 10^3/ul (0-0.6); ABS Lymphocytes 1.4 10^3/ul (1.0-4.8); ABS Monocytes 0.6 10^3/ul (0-0.8); ABS Neutrophils 6.1 10^3/ul (1.5-7.7); ABS Nucleated RBC 0 10^3/ul; Eosinophil % 4.7 % (0-6); Hematocrit 31 % (35-47); Hemoglobin 10.5 g/dl (12.0-16.0); Lymphocyte % 16.2 % (25-47); Mean Corpuscular HGB Conc 34 g/dl (31-36); Mean Corpuscular Hemoglobin 34 pg (27-31); Mean Corpuscular Volume 101 fL (80-97); Mean Platelet Volume 9.4 um3 (7.4-10.4); Nucleated Red Blood Cells % 0; Platelet Count 188 10^3/ul (150-450); Red Blood Count 3.08 10^6/ul (4.00-5.40); Red Cell Distribution Width 16 % (10.5-15); White Blood Count 8.6 10^3/ul (3.5-10.8)
[2018-06-29 09:23] LABS: EGFR Non-African American 43.9 (>60)
--- NOTE | 2018-06-29 10:19 | RAD ---
INDICATION: Weakness COMPARISON: Most recent comparison chest x-rays dated April 15, 2018 TECHNIQUE: Single AP view of the chest was obtained. FINDINGS: Again seen is an implantable cardiac monitoring device. The heart and mediastinum exhibit normal size and contour. The lungs are grossly clear. There is no evidence of a large pleural effusion. Visualized bones are normal for the patient's age. IMPRESSION: No radiographic evidence for acute cardiopulmonary abnormality on this single AP view chest x-ray.
--- NOTE | 2018-06-29 10:26 | RAD ---
Indication: Fall on Friday. RIGHT hip pain. Comparison: April 15, 2018 CT. Technique: AP pelvis and AP and frog-leg lateral views RIGHT hip. Report: Cortical contour irregularity at the junction of the RIGHT superior pubic ramus with the os pubis concerning for a grossly nondisplaced fracture. No additional anterior posterior pelvic fracture is visualized however additional fractures may be radiographically occult. The RIGHT hip is normally located. No suspicious cortical or trabecular irregularity of the proximal RIGHT femur evident to indicate a femoral neck fracture. 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 Pelvic phleboliths and vascular calcifications. Unremarkable soft tissue contours. IMPRESSION: #. High probability for grossly nondisplaced RIGHT superior pubic ramus fracture at the junction with the os pubis. Consider CT for further assessment as additional radiographic occult pelvic fractures are not excluded. #. No radiographic evidence for RIGHT hip fracture.
--- NOTE | 2018-06-29 10:37 | ED ---
Lower Extremity - HPI Summary HPI Summary: Pt is an 87 y/o female BIBA to the [facility] [place] [facility]. She is c/o pain rated 4-5/10 in severity in the R groin, lower back and right hip. She fell 3 days ago at the drug store and hit the floor. She reports urinary incontinence. She denies fever, LOC, CP, and SOB. This is scribe Ophelia Riojas documenting for attending Dr. Jacob MD. - History of Current Complaint Stated Complaint: BACK & FLANK PAIN Time Seen by Provider: 06/29/18 08:38 Hx Obtained From: Patient Mechanism Of Injury: Fall From A Standing Position Onset of Pain: Days - 3 days ago, Post Accident - Fell at the store Severity Initially: Moderate Severity Currently: Moderate Pain Intensity: 5 Pain Scale Used: 0-10 Numeric Timing: Lasting Days - 3 days Location: Is Discrete @ - R groin, lower back and right hip Associated Signs And Symptoms: Positive: Other - Negative: CP , SOB, LOC. Negative: Fever, Syncope - Allergies/Home Medications Allergies/Adverse Reactions: Allergies Allergy/AdvReac Type Severity Reaction Status Date / Time sulfamethoxazole Allergy Hives Verified 01/16/18 14:45 [From Bactrim] trimethoprim [From Bactrim] Allergy Hives Verified 01/16/18 14:45 one that starts with a s Allergy Hives Uncoded 08/20/13 23:40 Home Medications: Home Medications Bupropion HCl 150 mg PO DAILY 06/29/18 [History Confirmed 06/29/18] Calcium 600 mg PO DAILY 06/29/18 [History Confirmed 06/29/18] Donepezil HCl 5 mg PO BEDTIME 06/29/18 [History Confirmed 06/29/18] Metoprolol Succinate XL TAB* [Toprol XL TAB*] 50 mg PO DAILY 06/29/18 [History Confirmed 06/29/18] Omeprazole 20 mg PO DAILY 06/29/18 [History Confirmed 06/29/18] Preservision Areds Softgel 1 tab PO DAILY 06/29/18 [History Confirmed 06/29/18] Warfarin TAB(*) [Coumadin TAB(*)] 2.5 mg PO DAILY@1700 06/29/18 [History Confirmed 06/29/18] PMH/Surg Hx/FS Hx/Imm Hx Previously Healthy: No Endocrine/Hematology History: Denies: Hx Diabetes Cardiovascular History: Reports: Hx Atrial Fibrillation, Hx Hypertension, Other Cardiovascular Problems/Disorders - Afib Denies: Hx Angina, Hx Coronary Artery Disease, Hx Hypercholesterolemia, Hx Myocardial Infarction, Hx Peripheral Vascular Disease, Hx Valvular Heart Disease Respiratory History: Denies: Hx Asthma, Hx Chronic Obstructive Pulmonary Disease (COPD) GI History: Reports: Hx Ulcer History: Reports: Other Problems/Disorders - stress incontinence per pt Musculoskeletal History: Reports: Hx Arthritis, Hx Osteoporosis Sensory History: Reports: Hx Hearing Aid Denies: Hx Contacts or Glasses, Hx Legally Blind, Hx Deafness Opthamlomology History: Denies: Hx Contacts or Glasses, Hx Legally Blind Neurological History: Reports: Other Neuro Impairments/Disorders - degenerative disc disease Psychiatric History: Denies: Hx Inpatient Treatment - Surgical History Surgery Procedure, Year, and Place: appendectomy. loop recorder - Immunization History Date of Tetanus Vaccine: unknown Infectious Disease History: No Infectious Disease History: Denies: Hx of Known/Suspected MRSA, Traveled Outside the [place] in Last 30 Days - Family History Known Family History: Positive: Cardiac Disease, Diabetes, Other - CVA - Social History Occupation: Retired Alcohol Use: None Substance Use Type: Reports: None Smoking Status (MU): Former Smoker Type: Cigarettes Have You Smoked in the Last Year: No Review of Systems Negative: Fever Negative: Chest Pain Negative: Shortness Of Breath Positive: incontinence, other - Positive: R groin pain Positive: Other - Positive: R Hip pain, lower back pain Negative: Syncope All Other Systems Reviewed And Are Negative: Yes Physical Exam - Summary Physical Exam Summary: VITAL SIGNS: Reviewed. GENERAL: Patient is a well-developed and nourished female who is lying comfortable in the stretcher. Patient is not in any acute respiratory distress. HEAD AND FACE: No signs of trauma. No ecchymosis, hematomas or skull depressions. No sinus tenderness. EYES: PERRLA, EOMI x 2, No injected conjunctiva, no nystagmus. EARS: Hearing grossly intact. Ear canals and tympanic membranes are within normal limits. MOUTH: Oropharynx within normal limits. NECK: Supple, trachea is midline, no adenopathy, no JVD, no carotid bruit, no c- spine tenderness, neck with full ROM. CHEST: Symmetric, no tenderness at palpation LUNGS: Clear to auscultation bilaterally. No wheezing or crackles. CVS: Regular rate and rhythm, S1 and S2 present, no murmurs or gallops appreciated. ABDOMEN: Soft, non-tender. No signs of distention. No rebound no guarding, and no masses palpated. Bowel sounds are normal. EXTREMITIES: Decreased ROM of hip secondary to pain; Pain at palpation at the R hip; Good pulses and good capillary refill; no edema, no cyanosis or clubbing. NEURO: Alert and oriented x 3. No acute neurological deficits. Speech is normal and follows commands. SKIN: Dry and warm Triage Information Reviewed: Yes Vital Signs On Initial Exam: Initial Vitals Temp Pulse Resp BP Pulse Ox 97.9 F 67 16 148/79 100 06/29/18 08:36 06/29/18 08:36 06/29/18 08:36 06/29/18 08:36 06/29/18 08:36 Vital Signs Reviewed: Yes Diagnostics - Vital Signs Vital Signs Temp Pulse Resp BP Pulse Ox 06/29/18 08:36 97.9 F 67 16 148/79 100 - Laboratory Lab Results: Lab Results 06/29/18 06/29/18 Range/Units 08:54 08:54 WBC 8.6 (3.5-10.8) 10^3/ul RBC 3.08 L (4.00-5.40) 10^6/ul Hgb 10.5 L (12.0-16.0) g/dl Hct 31 L (35-47) % MCV 101 H (80-97) fL MCH 34 H (27-31) pg MCHC 34 (31-36) g/dl RDW 16 H (10.5-15) % Plt Count 188 (150-450) 10^3/ul MPV 9.4 (7.4-10.4) um3 Neut % (Auto) 70.7 (38-83) % Lymph % (Auto) 16.2 L (25-47) % [place] % (Auto) 7.5 H (0-7) % Eos % (Auto) 4.7 (0-6) % Baso % (Auto) 0.9 (0-2) % Absolute Neuts (auto) 6.1 (1.5-7.7) 10^3/ul Absolute Lymphs (auto) 1.4 (1.0-4.8) 10^3/ul Absolute Monos (auto) 0.6 (0-0.8) 10^3/ul Absolute Eos (auto) 0.4 (0-0.6) 10^3/ul Absolute Basos (auto) 0.1 (0-0.2) 10^3/ul Absolute Nucleated RBC 0 10^3/ul Nucleated RBC % 0 Sodium 137 (135-145) mmol/L Potassium 3.9 (3.5-5.0) mmol/L Chloride 102 (101-111) mmol/L Carbon Dioxide 29 (22-32) mmol/L Anion Gap 6 (2-11) mmol/L BUN 21 (6-24) mg/dL Creatinine 1.17 H (0.51-0.95) mg/dL Est GFR ( Amer) 53.1 (>60) Est GFR (Non-Af Amer) 43.9 (>60) BUN/Creatinine Ratio 17.9 (8-20) Glucose 90 (70-100) mg/dL Calcium 9.2 (8.6-10.3) mg/dL Total Bilirubin 0.40 (0.2-1.0) mg/dL AST 14 (13-39) U/L ALT 8 (7-52) U/L Alkaline Phosphatase 42 (34-104) U/L C-Reactive Protein 12.95 H (<8.01) mg/L Total Protein 7.1 (6.4-8.9) g/dL Albumin 3.4 (3.2-5.2) g/dL Globulin 3.7 (2-4) g/dL Albumin/Globulin Ratio 0.9 L (1-3) Lipase 52 (11.0-82.0) U/L Result Diagrams: 06/29/18 08:54 06/29/18 08:54 Lab Statement: Any lab studies that have been ordered have been reviewed, and results considered in the medical decision making process. - Radiology CXR Radiology Interpretation Completed By: Radiologist - IMPRESSION: No radiographic evidence for acute cardiopulmonary abnormality on this single AP view chest x-ray. The ED physician has reviewed this radiology report. Hip/Pelvic XR Radiology Interpretation Completed By: Radiologist - IMPRESSION: High probability for grossly nondisplaced RIGHT superior pubic ramus fracture at the junction with the os pubis. Consider CT for further assessment as additional radiographic occult pelvic fractures are not excluded. No radiographic evidence for RIGHT hip fracture. The ED physician has reviewed this radiology report. - CT Pelvis W/O contrast CT Interpretation Completed By: Radiologist - IMPRESSION: NONDISPLACED FRACTURES OF THE RIGHT SUPERIOR PUBIC RAMUS The ED physician has reviewed this radiology report. Lower Extremity Course/Dx - Course Assessment/Plan: His patient is a 89-year-old female who presents to the emergency department with caregiver with a chief complaint of having right hip pain and unable to ambulate. She reports that she had a accidental or mechanical fall on Friday and since then the patient is having pain. Test results without any significant abnormality except for slight anemia, creatinine 1.17. Hip and pelvic x-ray impression: High probability for grossly nondisplaced right superior. Ramus fracture and the junction of the pubis. Recommend CT of the pelvis. Pelvic CT impression: Nondisplaced fracture of the right superior pubic ramus. And the patient was given Zofran for nausea and morphine for pain. However the patient was unable to ambulate. Therefore I discussed the case with Dr. Matos from the hospital services who agrees to admit to his services for further workup and management. - Diagnoses Differential Diagnosis/HQI/PQRI: Positive: Other - pubic ramus fracture Provider Diagnoses: Pubic ramus fracture - Physician Notifications Discussed Care Of Patient With: Brianna Matos Time Discussed With Above Provider: 12:12 Instructed by Provider To: Admit As Inpatient Discharge - Sign-Out/Discharge Documenting (check all that apply): Patient Departure - Admit Signing out patient TO: Brianna Matos Receiving patient FROM: Nadeem James - Discharge Plan Condition: Stable Disposition: ADMITTED TO [facility] - Billing Disposition and Condition Condition: STABLE Disposition: Admitted to [facility]
[2018-06-29] MEDS ORDERED: Ondansetron INJ* 2 MG/ML VIAL IV ONE (11:02)
[2018-06-29] MEDS ORDERED: Morphine VIAL* 10 MG/ML 1 ML VIAL IV ONE (11:02)
--- NOTE | 2018-06-29 11:13 | RAD ---
INDICATION: Right hip pain after fall COMPARISON: Right hip June 29, 2018 TECHNIQUE: Noncontrast axial source images were obtained from the iliac crests through the symphysis pubis. FINDINGS: There is underlying osteopenia. There is a nondisplaced fracture of the right superior pubic ramus near the symphysis pubis. There is mild comminution. No other pelvic fractures are appreciated. There is no evidence of a proximal femoral fracture. The hips articulate normally for age. There are no other CT abnormalities of the bony pelvis. There are spondylitic changes of the lower lumbar spine The uterus and adnexa appear normal. No free fluid or adenopathy is seen. The noncontrast CT appearance of the bowel is unremarkable. There is a small fat-containing periumbilical hernia. The bladder appears normal. IMPRESSION: NONDISPLACED FRACTURES OF THE RIGHT SUPERIOR PUBIC RAMUS
[2018-06-29] MEDS ORDERED: Ondansetron INJ* 2 MG/ML VIAL IV PRN (13:55)
[2018-06-29 14:30] LABS: INR 1.73 (0.77-1.02)
--- NOTE | 2018-06-29 15:05 | RAD ---
INDICATION: The patient had a fall 2 days earlier COMPARISON: CT of the brain dated April 14, 2018 TECHNIQUE: Contiguous axial sections of the brain were obtained from the skull base to the vertex without contrast. FINDINGS: The ventricles, cisterns and sulci exhibit symmetrical involutional changes. There is mild to moderate periventricular and subcortical white matter hypoattenuation most consistent with chronic microvascular disease. The stout-white matter differentiation is adequately maintained and there is no sulcal effacement. No significant focal abnormality or mass effect is present. There is no evidence for intracranial hemorrhage. Again seen is coarse atherosclerotic calcification of the petrous carotid arteries and left vertebral artery. No significant focal osseous abnormality is present. The visualized portion of the paranasal sinuses appear clear. The mastoid air cells are well aerated bilaterally. IMPRESSION: Stable age-appropriate chronic findings as described above without CT evidence of acute traumatic injury.
--- NOTE | 2018-06-29 15:09 | RAD ---
INDICATION: Right ankle pain COMPARISON: None TECHNIQUE: AP and lateral views were obtained. FINDINGS: There is osteopenia. There is no acute fracture. Ankle mortise and soft tissues appear normal. IMPRESSION: NO ACUTE FRACTURE
--- NOTE | 2018-06-29 17:04 | HP ---
CC: Dr. Ryan * HISTORY AND PHYSICAL: DATE OF ADMISSION: 06/29/18 PRIMARY CARE PROVIDER: Dr. Ryan ATTENDING PHYSICIAN WHILE IN THE HOSPITAL: Brianna Matos DO * (report dictated by Talon Griffin NP). CHIEF COMPLAINT: Fall. HISTORY OF PRESENT ILLNESS: Ms. Francisco is an 87-year-old female patient who presents today; she fell on Friday. [facility], [facility] was getting [facility]. She said she was in a crowded location. She lost her balance. She tripped. She did not pass out. She did not hit her head. She did land on her right side. She noted that since then she has been having intermittent pain, particularly in the right hip area with any type of movement of that leg or any type of walking. She was evaluated today by her health aide and the family member and noted that she had not gone out of the bed last to urinate. She actually was incontinent in her bed. The patient says that she did not get out because it hurt anytime she moves her leg, she was having more pain in that right hip. Her family member called 911 and brought her to the hospital when she was found that she had a right nondisplaced pubic rami fracture. The patient came in, was evaluated and because she was having significant amount of pain, we were asked to evaluate for admission. PAST MEDICAL HISTORY: Significant for: 1. Psoriasis. 2. Osteoporosis. 3. Osteoarthritis. 4. AFib. PAST SURGICAL HISTORY: 1. She has had an appendectomy. 2. Cholecystectomy. HOME MEDICATIONS: Include: 1. Toprol-XL 50 mg in the morning, 25 mg at bedtime. 2. Folic acid 1 mg p.o. daily. 3. PreserVision 1 tablet p.o. daily. 4. Omeprazole 20 mg daily. 5. Glucosamine 1 capsule daily. 6. Aricept 5 mg at bedtime. 7. Calcium 600 mg daily. 8. Wellbutrin 150 mg p.o. daily. 9. Methotrexate 7.5 mg p.o. weekly on Saturdays. 10. Warfarin 2.5 mg p.o. daily. ALLERGIES TO MEDICATIONS: Include SULFA DRUGS. FAMILY HISTORY: Mother had a history of diabetes. Father had a history of CVA. SOCIAL HISTORY: She is a former smoker. She does not drink alcohol. Surrogate decision makers are her sons, Dariusz and Isidro. REVIEW OF SYSTEMS: There is no documented fever. She is denying having any significant weight change. There was no double vision. She denies having any ear discharge. There is no rhinorrhea. There is no sore throat. No thyroid enlargement. She denied having any chest pain. There is no orthopnea. There is no nocturnal dyspnea. Denies having any abdominal pain. There is no nausea , no vomiting. No dysuria. There is no frequency. No seizure. There was no loss of consciousness. No pruritus and no skin ulcerations. Review of 14 systems completed, all others were negative. PHYSICAL EXAMINATION GENERAL: At this time, Ms. Francisco is an 87-year-old female patient, she is sitting in the ED stretcher. She does not appear to be in any acute distress. She appears to be well-nourished and well-developed. VITAL SIGNS: Blood pressure 171/67, the pulse is 65, respirations were 18, O2 sat is 96%, temperature is 97.8. HEENT: Head is atraumatic, normocephalic. Eyes: EOMs are intact. Sclerae anicteric and not pale. Throat: Oral mucosa appears to be moist. No oropharyngeal erythema. NECK: Supple. LUNGS: Clear to auscultation bilaterally. No wheezes, rales, or rhonchi. HEART: Sounds S1, S2. She had an irregularly irregular rate and rhythm. No murmurs, rubs, or gallops. ABDOMEN: Soft, flat, nontender. Bowel sounds were present. EXTREMITIES: Pulses were 2+ throughout. She has difficult range of motion in the right lower extremity because of pain in the hip. When she starts lifting it off the bed she has to stop because of the pain in the pelvic and hip area. She did have 5/5 strength at dorsi and plantar flexion. She has 5/5 in the upper strength. NEUROLOGIC: The patient is awake, alert. She is oriented x3. She had no gross focal deficit. SKIN: Her skin was intact. DIAGNOSTIC STUDIES/LAB DATA: Revealed a WBC of 8.6, RBC of 3.08, hemoglobin 10.5, hematocrit of 31, platelet count of 188. The sodium was 137, potassium was 3.9, chloride of 102, bicarb 29, BUN 21, creatinine 1.17. It is at her baseline. Glucose was 90, the calcium was 9.2. Total bili 0.4, AST 14, ALT 8, alk phos 42. CRP of 12.95, albumin is 3.4, lipase is 52. She had a chest x-ray which showed no radiographic evidence for acute cardiopulmonary abnormality. Hip x-ray showed high probability for grossly nondisplaced right superior pubic ramus fracture at the junction with the os pubis. Consider CT for further assessment as additional radiographic occult pelvic fractures are not excluded. No radiographic evidence for right hip fracture. Pelvis CT, impression: CT pelvis nondisplaced fracture of the right superior pubic ramus. Old medical records were reviewed. ASSESSMENT AND PLAN: Ms. Francisco is an 87-year-old female patient coming into the ED today with complaints of a fall over on Friday. The patient is evaluated here today. She was found to have a pubic rami fracture. We were asked to evaluate for admission. She will be admitted under inpatient status for: 1. Pubic rami fracture. She has to touch base with Orthopedics. At this point , they are recommending weightbearing as tolerated or PT/OT and I ordered OT/PT , p.r.n. Tramadol, p.r.n. Tylenol for pain control. Because of the fall, as she is on Coumadin, I will get a CT of brain just to make sure there is any intracranial hemorrhages, but I suspect not, as she has been lucid, but just to be safe, given the fact that she is on blood thinners. 2. Atrial fibrillation. We are going to continue her meds as prescribed. She is rate controlled. We will continue with the metoprolol and medications as prescribed. Continue the warfarin. 3. Osteoarthritis. Continue with her current medical regimen. 4. Osteoporosis. Continue with calcium. 5. Psoriasis. She is to take methotrexate on Saturdays and not due until Friday, so we will continue to monitor. 6. DVT prophylaxis. INR is pending, but she is on warfarin. We will continue that for DVT prophylaxis now. 7. Fluids, electrolytes, and nutrition. She can have a regular diet. 8. Code status. She did wish and DNR was filled out. TIME SPENT: On the admission was 60 minutes; greater than half the time was spent [id number] with the patient obtaining my history and physical; other half time was spent going over the plan of care with the patient and implementing the plan of care. I did discuss the plan of care with my attending physician, Dr. Matos; she is in agreement. TALON GRIFFIN NP [id number]/[facility] #: [id number] LEONA
[2018-06-29] MEDS: Warfarin TAB(*) 2.5 MG PO SCH (17:17)
[2018-06-29] MEDS: traMADol TAB* 50 MG PO PRN (17:19)
[2018-06-29] MEDS: Nystatin TOP POWDER* 15 GM BTL TOPICAL SCH ×2 (17:21→20:41)
[2018-06-29] MEDS: Docusate CAP* 100 MG PO SCH (20:25)
[2018-06-29] MEDS: Senna TAB PO SCH (20:25)
[2018-06-29] MEDS: oxyCODONE TAB* 5 MG TAB PO PRN (20:25)
[2018-06-29] MEDS: Metoprolol Succinate XL TAB* 25 MG PO SCH (20:25)
[2018-06-29] MEDS: Donepezil TAB* 5 MG PO SCH (20:25)
[2018-06-30 05:57] LABS: ABS Basophils 0.1 10^3/ul (0-0.2); ABS Eosinophils 0 10^3/ul (0-0.6); ABS Lymphocytes 0.9 10^3/ul (1.0-4.8); ABS Monocytes 0.3 10^3/ul (0-0.8); ABS Neutrophils 6.8 10^3/ul (1.5-7.7); ABS Nucleated RBC 0 10^3/ul; Eosinophil % 0.4 % (0-6); Hematocrit 30 % (35-47); Hemoglobin 10.3 g/dl (12.0-16.0); Lymphocyte % 11.4 % (25-47); Mean Corpuscular HGB Conc 34 g/dl (31-36); Mean Corpuscular Hemoglobin 34 pg (27-31); Mean Corpuscular Volume 101 fL (80-97); Mean Platelet Volume 9.8 um3 (7.4-10.4); Nucleated Red Blood Cells % 0; Platelet Count 197 10^3/ul (150-450); Red Blood Count 2.99 10^6/ul (4.00-5.40); Red Cell Distribution Width 15 % (10.5-15); White Blood Count 8.2 10^3/ul (3.5-10.8)
[2018-06-30 06:07] LABS: INR 1.87 (0.77-1.02)
[2018-06-30 06:10] LABS: EGFR Non-African American 51.4 (>60)
[2018-06-30] MEDS: Metoprolol Succinate XL TAB* 50 MG PO SCH (07:41)
[2018-06-30] MEDS: Docusate CAP* 100 MG PO SCH ×2 (07:41→22:17)
[2018-06-30] MEDS: Omeprazole CAP* 20 MG PO SCH (07:41)
[2018-06-30] MEDS: BuPROPion XL* 150 MG TAB.XL PO SCH (07:42)
[2018-06-30] MEDS: Folic Acid TAB* 1 MG PO SCH (07:42)
[2018-06-30] MEDS: Calcium Carbonate TAB* 1250 MG (CALCIUM 500 MG) PO SCH (07:42)
[2018-06-30] MEDS: traMADol TAB* 50 MG PO PRN (07:42)
[2018-06-30] MEDS: Nystatin TOP POWDER* 15 GM BTL TOPICAL SCH ×3 (08:21→22:20)
[2018-06-30] MEDS: GLUCOSAMINE PO SCH (08:21)
[2018-06-30] MEDS: oxyCODONE TAB* 5 MG TAB PO PRN ×4 (09:58→22:14)
[2018-06-30] MEDS: Warfarin TAB(*) 2.5 MG PO SCH (16:51)
--- NOTE | 2018-06-30 18:19 | RAD ---
Indication: Bilateral knee pain post mechanical fall. Sustained pelvic fracture in fall. Comparison: February 08, 2008 Technique: AP and crosstable lateral views of the bilateral knees. Report: RIGHT knee: Small joint effusion. Negative for fracture. Severe tricompartmental osteoarthritis. Slight valgus angulation secondary to marked lateral joint space narrowing. Mild nonfocal soft tissue swelling. Diffuse skeletal muscle atrophy. Peripheral vascular calcifications. LEFT knee: Nondisplaced fracture at the proximal diaphysis of the fibula. No additional fracture evident. Small joint effusion. Severe tricompartmental osteoarthritis. Resulting slight valgus angulation. Mild nonfocal soft tissue swelling. Peripheral vascular calcifications. IMPRESSION: #. Nondisplaced fracture at the proximal diaphysis of the LEFT fibula. #. Severe bilateral osteoarthritis with interval worsening. Small bilateral knee joint effusions.
--- NOTE | 2018-06-30 18:58 | PN ---
Subjective Date of Service: 06/30/18 Interval History: Pain poorly controlled. Knee Xrays ordered: left proximal fibula fracture. OT rec of SNF. Objective Active Medications: Acetaminophen (Tylenol Tab*) 650 mg PO Q4H PRN PRN Reason: FEVER/PAIN Bupropion HCl (Wellbutrin Xl *) 150 mg PO DAILY [facility] Last Admin: 06/30/18 07:42 Dose: 150 mg Calcium Carbonate (Calcium Carbonate Tab*) 1,250 mg PO DAILY [facility] Last Admin: 06/30/18 07:42 Dose: 1,250 mg Docusate Sodium (Colace Cap*) 100 mg PO BID [facility] Last Admin: 06/30/18 07:41 Dose: 100 mg Donepezil HCl (Aricept Tab*) 5 mg PO BEDTIME [facility] Last Admin: 06/29/18 20:25 Dose: 5 mg Folic Acid (Folvite Tab*) 1 mg PO DAILY [facility] Last Admin: 06/30/18 07:42 Dose: 1 mg Glucosamine Sulfate (Glucosamine Cap (Nf)) 1 cap PO DAILY [facility]; Protocol Last Admin: 06/30/18 08:21 Dose: Not Given Metoprolol Succinate (Toprol Xl Tab*) 50 mg PO DAILY [facility] Last Admin: 06/30/18 07:41 Dose: 50 mg Metoprolol Succinate (Toprol Xl Tab*) 25 mg PO BEDTIME [facility] Last Admin: 06/29/18 20:25 Dose: 25 mg Nystatin (Nystatin Top Powder*) 1 applic TOPICAL TID [facility] Last Admin: 06/30/18 16:52 Dose: 1 applic Omeprazole (Prilosec Cap*) 20 mg PO DAILY [facility] Last Admin: 06/30/18 07:41 Dose: 20 mg Ondansetron HCl (Zofran Inj*) 4 mg IV Q6H PRN PRN Reason: NAUSEA Oxycodone HCl (Roxycodone Tab*) 5 mg PO Q4H PRN PRN Reason: PAIN Last Admin: 06/30/18 16:51 Dose: 5 mg Senna (Senokot Tab*) 2 tab PO BEDTIME [facility] Last Admin: 06/29/18 20:25 Dose: 2 tab Tramadol HCl (Ultram*) 50 mg PO Q8H PRN PRN Reason: PAIN Last Admin: 06/30/18 07:42 Dose: 50 mg Warfarin Sodium (Coumadin Tab(*)) 2.5 mg PO DAILY@1700 RANDY; Protocol Last Admin: 06/30/18 16:51 Dose: 2.5 mg Vital Signs - 8 hr 06/30/18 06/30/18 06/30/18 11:35 12:25 14:20 Temperature 98.2 F Pulse Rate 67 Respiratory 16 20 18 Rate Blood Pressure 129/48 (mmHg) O2 Sat by Pulse 96 Oximetry 06/30/18 06/30/18 15:17 16:51 Temperature 97.9 F Pulse Rate 76 Respiratory 16 16 Rate Blood Pressure 121/75 (mmHg) O2 Sat by Pulse 98 Oximetry Oxygen Devices in Use Now: None Appearance: NAD. Eyes: No Scleral Icterus, PERRLA Ears/Nose/Mouth/Throat: NL Teeth, Lips, Gums, Mucous Membranes Moist Neck: NL Appearance and Movements; NL JVP, Trachea Midline Respiratory: Symmetrical Chest Expansion and Respiratory Effort, Clear to Auscultation Cardiovascular: NL Sounds; No Murmurs; No JVD, RRR Abdominal: NL Sounds; No Tenderness; No Distention, No Hepatosplenomegaly Extremities: No Edema, No Clubbing, Cyanosis Skin: No Rash or Ulcers, No Nodules or Sclerosis Neurological: Alert and Oriented x 3, NL Sensation, - - though forgot name of hospital. Nutrition: Taking PO's Result Diagrams: 06/30/18 05:44 06/30/18 05:44 Additional Lab and Data: Laboratory Results - last 24 hr 06/30/18 06/30/18 06/30/18 05:44 05:44 05:44 WBC 8.2 RBC 2.99 L Hgb 10.3 L Hct 30 L MCV 101 H MCH 34 H MCHC 34 RDW 15 Plt Count 197 MPV 9.8 Neut % (Auto) 83.3 H Lymph % (Auto) 11.4 L Starke % (Auto) 4.2 Eos % (Auto) 0.4 Baso % (Auto) 0.7 Absolute Neuts (auto) 6.8 Absolute Lymphs (auto) 0.9 L Absolute Monos (auto) 0.3 Absolute Eos (auto) 0 Absolute Basos (auto) 0.1 Absolute Nucleated RBC 0 Nucleated RBC % 0 INR (Anticoag Therapy) 1.87 H Sodium 133 L Potassium 4.2 Chloride 99 L Carbon Dioxide 25 Anion Gap 9 BUN 16 Creatinine 1.02 H Est GFR ( Amer) 62.2 Est GFR (Non-Af Amer) 51.4 BUN/Creatinine Ratio 15.7 Glucose 118 H Calcium 9.3 Assess/Plan/Problems-Billing Assessment: 87 yo female PMH dementia, Afib (coumadin), psoriatic arthritis, OA, presenting with mechanical fall. pubic rami fracture and proximal left fibula fracture. Needing SNF. - Patient Problems (1) Pubic ramus fracture Current Visit: Yes Status: Acute Code(s): S32.599A - OTH FRACTURE OF UNSP PUBIS, INIT ENCNTR FOR CLOSED FRACTURE SNOMED Code(s): 79727217 Comment: Appreciate ortho recs. Bed to chair motion as tolerated. no surgical intervention. pain control, increased oxy to 5 q4. bowel regimen. (2) Fracture, fibula, proximal Current Visit: Yes Status: Acute Code(s): S82.839A - OTH FRACTURE OF UPPER AND LOWER END OF UNSP FIBULA, INIT SNOMED Code(s): 78714001 Comment: f/u ortho recs. (3) Afib Current Visit: No Status: Acute Code(s): I48.91 - UNSPECIFIED ATRIAL FIBRILLATION SNOMED Code(s): 51279866 Comment: subtherapeutic INR, but sangeeta today to 1.87. recheck in AM. continue coumadin 2.5mg continue metoprolol 50/25. (4) DVT prophylaxis Current Visit: No Status: Acute Code(s): UGZ9233 - SNOMED Code(s): 295091385 Comment: - Coumadin. (5) Failure to thrive Current Visit: No Status: Acute Code(s): DOJ6258 - SNOMED Code(s): 15222834 Comment: very poor appetite reported. Ensures TID. (6) Psoriatic arthritis Current Visit: No Status: Chronic Code(s): L40.50 - ARTHROPATHIC PSORIASIS, UNSPECIFIED SNOMED Code(s): 049885215 Comment: - Continue home regimen. Status and Disposition: medicine inpatient. Wants to go to [facility].
--- NOTE | 2018-06-30 21:18 | CONS ---
ORTHO CONSULTATION REPORT: DATE OF CONSULT: 06/30/18 TIME: 0936. I was called to see this pleasant 87-year-old female admitted to the [facility], complaining of back and flank pain. The patient states she fell and was propelled forward and subsequently complained of right pelvis and groin pain. She also complains of additional discomfort in her bilateral knees. The patient states that mobilization is very difficult for her. PHYSICAL EXAMINATION: She is alert and oriented x3. Well-developed, well- nourished female, somewhat frail, in minimal discomfort at rest. She was examined at the bedside and on examination of her right hemipelvis, she does have tenderness at her superior pubic ramus, which coincides with x-rays that were taken, which revealed that she does have a superior pubic ramus fracture. The patient also complains of bilateral knee discomfort. On palpation of her bilateral medial femoral condyles, the patient cries out in pain and when asked to flex her knee beyond 10 degrees bilaterally she complains of severe discomfort. DIAGNOSTIC STUDIES/LAB DATA: Reviewing her x-rays, the patient had x-rays taken of her right hip and there was no evidence of an acute right hip fracture. X-rays of her right ankle 2 views did not reveal any evidence of fracture or osseous abnormality. The x-rays, as stated, of her pelvis revealed a superior pubic ramus fracture. Unfortunately, there are no x-rays of her knees from this hospitalization. Therefore, I would like to obtain x-ray of her bilateral knees as soon as possible. ASSESSMENT AND PLAN: I believe she most likely sustained a contusion based on her history; however, with her exquisite point tenderness, I would like to rule out acute fracture. All the patient's questions were answered to her full satisfaction and neurovascularly she is intact. [id number]/[facility] #: [id number] [facility] HOSPITALNilsa
[2018-06-30] MEDS: Metoprolol Succinate XL TAB* 25 MG PO SCH (22:16)
[2018-06-30] MEDS: Donepezil TAB* 5 MG PO SCH (22:17)
[2018-06-30] MEDS: Senna TAB PO SCH (22:18)
[2018-07-01] MEDS: oxyCODONE TAB* 5 MG TAB PO PRN ×4 (05:37→23:30)
[2018-07-01 07:12] LABS: ABS Basophils 0.1 10^3/ul (0-0.2); ABS Eosinophils 0.1 10^3/ul (0-0.6); ABS Monocytes 0.7 10^3/ul (0-0.8); ABS Neutrophils 6.3 10^3/ul (1.5-7.7); ABS Nucleated RBC 0 10^3/ul; Eosinophil % 1.7 % (0-6); Hematocrit 31 % (35-47); Hemoglobin 10.5 g/dl (12.0-16.0); Lymphocyte % 12.5 % (25-47); Mean Corpuscular HGB Conc 34 g/dl (31-36); Mean Corpuscular Hemoglobin 35 pg (27-31); Mean Corpuscular Volume 101 fL (80-97); Mean Platelet Volume 9.7 um3 (7.4-10.4); Nucleated Red Blood Cells % 0; Platelet Count 182 10^3/ul (150-450); Red Blood Count 3.02 10^6/ul (4.00-5.40); Red Cell Distribution Width 15 % (10.5-15); White Blood Count 8.2 10^3/ul (3.5-10.8)
[2018-07-01 07:19] LABS: INR 2.24 (0.77-1.02)
[2018-07-01 07:22] LABS: EGFR Non-African American 52.6 (>60)
[2018-07-01] MEDS: Omeprazole CAP* 20 MG PO SCH (08:07)
[2018-07-01] MEDS: Calcium Carbonate TAB* 1250 MG (CALCIUM 500 MG) PO SCH (08:07)
[2018-07-01] MEDS: Nystatin TOP POWDER* 15 GM BTL TOPICAL SCH ×3 (08:07→20:15)
[2018-07-01] MEDS: BuPROPion XL* 150 MG TAB.XL PO SCH (08:07)
[2018-07-01] MEDS: Docusate CAP* 100 MG PO SCH ×2 (08:07→20:11)
[2018-07-01] MEDS: Folic Acid TAB* 1 MG PO SCH (08:07)
[2018-07-01] MEDS: Metoprolol Succinate XL TAB* 50 MG PO SCH (08:07)
[2018-07-01] MEDS: GLUCOSAMINE PO SCH (08:08)
[2018-07-01] MEDS: Acetaminophen TAB* 325 MG PO PRN ×2 (12:16→20:10)
[2018-07-01] MEDS: traMADol TAB* 50 MG PO PRN (12:17)
--- NOTE | 2018-07-01 15:57 | PN ---
Subjective Date of Service: 07/01/18 Interval History: Pt is discouraged by the pain with movement, points to left knee. Getting the oxy 5mg at noon, 5pm, 10pm, 6am, 10am. Says pills not helping the pain at all. No BM since 06/26. INR up to 2.24. Poor appetite. Objective Active Medications: Acetaminophen (Tylenol Tab*) 650 mg PO Q4H PRN PRN Reason: FEVER/PAIN Last Admin: 07/01/18 12:16 Dose: 650 mg Bupropion HCl (Wellbutrin Xl *) 150 mg PO DAILY [facility] Last Admin: 07/01/18 08:07 Dose: 150 mg Calcium Carbonate (Calcium Carbonate Tab*) 1,250 mg PO DAILY [facility] Last Admin: 07/01/18 08:07 Dose: 1,250 mg Docusate Sodium (Colace Cap*) 100 mg PO BID [facility] Last Admin: 07/01/18 08:07 Dose: 100 mg Donepezil HCl (Aricept Tab*) 5 mg PO BEDTIME [facility] Last Admin: 06/30/18 22:17 Dose: 5 mg Folic Acid (Folvite Tab*) 1 mg PO DAILY [facility] Last Admin: 07/01/18 08:07 Dose: 1 mg Glucosamine Sulfate (Glucosamine Cap (Nf)) 1 cap PO DAILY [facility]; Protocol Last Admin: 07/01/18 08:08 Dose: Not Given Metoprolol Succinate (Toprol Xl Tab*) 50 mg PO DAILY [facility] Last Admin: 07/01/18 08:07 Dose: 50 mg Metoprolol Succinate (Toprol Xl Tab*) 25 mg PO BEDTIME [facility] Last Admin: 06/30/18 22:16 Dose: 25 mg Nystatin (Nystatin Top Powder*) 1 applic TOPICAL TID [facility] Last Admin: 07/01/18 08:07 Dose: 1 applic Omeprazole (Prilosec Cap*) 20 mg PO DAILY [facility] Last Admin: 07/01/18 08:07 Dose: 20 mg Ondansetron HCl (Zofran Inj*) 4 mg IV Q6H PRN PRN Reason: NAUSEA Oxycodone HCl (Roxycodone Tab*) 10 mg PO Q4H PRN PRN Reason: PAIN Polyethylene Glycol/Electrolytes (Miralax*) 17 gm PO DAILY [facility] Senna (Senokot Tab*) 2 tab PO BEDTIME [facility] Last Admin: 06/30/18 22:18 Dose: 2 tab Warfarin Sodium (Coumadin Tab(*)) 2.5 mg PO DAILY@1700 RANDY; Protocol Last Admin: 06/30/18 16:51 Dose: 2.5 mg Vital Signs - 8 hr 07/01/18 07/01/18 07/01/18 08:16 10:25 10:53 Temperature 98.1 F Pulse Rate 73 Respiratory 18 16 20 Rate Blood Pressure 99/48 (mmHg) O2 Sat by Pulse 96 Oximetry 07/01/18 07/01/18 07/01/18 12:17 15:37 15:51 Temperature 98.1 F Pulse Rate 112 Respiratory 16 16 Rate Blood Pressure 89/49 98/58 (mmHg) O2 Sat by Pulse 94 Oximetry Oxygen Devices in Use Now: None Appearance: NAD, lying in bed. Eyes: No Scleral Icterus Ears/Nose/Mouth/Throat: NL Teeth, Lips, Gums, Mucous Membranes Moist Neck: NL Appearance and Movements; NL JVP, Trachea Midline Respiratory: Symmetrical Chest Expansion and Respiratory Effort, Clear to Auscultation Cardiovascular: NL Sounds; No Murmurs; No JVD, RRR Extremities: No Edema, No Clubbing, Cyanosis, - - b/l OA of knees. Skin: No Rash or Ulcers, No Nodules or Sclerosis Neurological: Alert and Oriented x 3, NL Sensation, NL Muscle Strength and Tone Nutrition: Taking PO's Result Diagrams: 07/01/18 06:48 07/01/18 06:48 Additional Lab and Data: Laboratory Results - last 24 hr 07/01/18 07/01/18 07/01/18 06:48 06:48 06:48 WBC 8.2 RBC 3.02 L Hgb 10.5 L Hct 31 L MCV 101 H MCH 35 H MCHC 34 RDW 15 Plt Count 182 MPV 9.7 Neut % (Auto) 76.7 Lymph % (Auto) 12.5 L Harding % (Auto) 8.4 H Eos % (Auto) 1.7 Baso % (Auto) 0.7 Absolute Neuts (auto) 6.3 Absolute Lymphs (auto) 1.0 Absolute Monos (auto) 0.7 Absolute Eos (auto) 0.1 Absolute Basos (auto) 0.1 Absolute Nucleated RBC 0 Nucleated RBC % 0 INR (Anticoag Therapy) 2.24 H Sodium 131 L Potassium 4.1 Chloride 97 L Carbon Dioxide 28 Anion Gap 6 BUN 19 Creatinine 1.00 H Est GFR ( Amer) 63.6 Est GFR (Non-Af Amer) 52.6 BUN/Creatinine Ratio 19.0 Glucose 92 Calcium 9.1 Total Creatine Kinase 21 Assess/Plan/Problems-Billing Assessment: 87 yo female PMH dementia, Afib (coumadin), psoriatic arthritis, severe b/l knee OA, presenting with mechanical fall. pubic rami fracture and proximal left fibula fracture. Needing SNF. - Patient Problems (1) Pubic ramus fracture Current Visit: Yes Status: Acute Code(s): S32.599A - OTH FRACTURE OF UNSP PUBIS, INIT ENCNTR FOR CLOSED FRACTURE SNOMED Code(s): 82345855 Comment: Appreciate ortho recs. Bed to chair motion as tolerated. no surgical intervention. pain control, increased oxy from 5mg q4 to 10mg q4. tylenol. bowel regimen( added miralax to senna and docusate). (2) Fracture, fibula, proximal Current Visit: Yes Status: Acute Code(s): S82.839A - OTH FRACTURE OF UPPER AND LOWER END OF UNSP FIBULA, INIT SNOMED Code(s): 59306935 Comment: f/u ortho recs. (3) Afib Current Visit: No Status: Acute Code(s): I48.91 - UNSPECIFIED ATRIAL FIBRILLATION SNOMED Code(s): 21271304 Comment: INR sangeeta today to 2.24. recheck daily. ?compliance issues at home? continue coumadin 2.5mg continue metoprolol 50/25. (4) DVT prophylaxis Current Visit: No Status: Acute Code(s): KAE4910 - SNOMED Code(s): 605878583 Comment: - Coumadin. (5) Failure to thrive Current Visit: No Status: Acute Code(s): DMR3022 - SNOMED Code(s): 89619647 Comment: very poor appetite reported. Ensures TID. (6) Psoriatic arthritis Current Visit: No Status: Chronic Code(s): L40.50 - ARTHROPATHIC PSORIASIS, UNSPECIFIED SNOMED Code(s): 171246009 Comment: - Continue home regimen. Status and Disposition: medicine inpatient. Wants to go to [facility].
[2018-07-01] MEDS: Polyethylene Glycol 3350* 17 GM PACKET PO SCH (17:45)
[2018-07-01] MEDS: Warfarin TAB(*) 2.5 MG PO SCH (17:46)
[2018-07-01] MEDS: Donepezil TAB* 5 MG PO SCH (20:11)
[2018-07-01] MEDS: Senna TAB PO SCH (20:11)
[2018-07-01] MEDS: Metoprolol Succinate XL TAB* 25 MG PO SCH (20:15)
[2018-07-02] MEDS: oxyCODONE TAB* 5 MG TAB PO PRN ×2 (06:17→14:38)
[2018-07-02 06:57] LABS: ABS Basophils 0.1 10^3/ul (0-0.2); ABS Eosinophils 0.2 10^3/ul (0-0.6); ABS Lymphocytes 1.5 10^3/ul (1.0-4.8); ABS Monocytes 0.7 10^3/ul (0-0.8); ABS Neutrophils 4.4 10^3/ul (1.5-7.7); ABS Nucleated RBC 0 10^3/ul; Eosinophil % 3.4 % (0-6); Hematocrit 31 % (35-47); Hemoglobin 10.5 g/dl (12.0-16.0); Lymphocyte % 21.3 % (25-47); Mean Corpuscular HGB Conc 34 g/dl (31-36); Mean Corpuscular Hemoglobin 34 pg (27-31); Mean Corpuscular Volume 101 fL (80-97); Mean Platelet Volume 9.7 um3 (7.4-10.4); Nucleated Red Blood Cells % 0.1; Platelet Count 204 10^3/ul (150-450); Red Blood Count 3.07 10^6/ul (4.00-5.40); Red Cell Distribution Width 15 % (10.5-15)
[2018-07-02 07:17] LABS: INR 2.28 (0.77-1.02)
[2018-07-02 07:36] LABS: EGFR Non-African American 43.9 (>60)
[2018-07-02] MEDS ORDERED: Magnesium CITRATE* 300 ML BTL PO ONE (08:37)
[2018-07-02] MEDS: Docusate CAP* 100 MG PO SCH (09:32)
[2018-07-02] MEDS: Polyethylene Glycol 3350* 17 GM PACKET PO SCH (09:32)
[2018-07-02] MEDS: BuPROPion XL* 150 MG TAB.XL PO SCH (09:37)
[2018-07-02] MEDS: Folic Acid TAB* 1 MG PO SCH (09:37)
[2018-07-02] MEDS: Calcium Carbonate TAB* 1250 MG (CALCIUM 500 MG) PO SCH (09:37)
[2018-07-02] MEDS: GLUCOSAMINE PO SCH (09:38)
[2018-07-02] MEDS: Nystatin TOP POWDER* 15 GM BTL TOPICAL SCH (09:38)
[2018-07-02] MEDS: Omeprazole CAP* 20 MG PO SCH (09:38)
--- NOTE | 2018-07-02 10:27 | DS ---
DATE OF ADMISSION: 06/29/2018. DATE OF DISCHARGE: 07/02/2018. ADMITTING PROVIDER: Talon Griffin NP. PRIMARY CARE PHYSICIAN: Dr. Mauri Ryan. ATTENDING PHYSICIAN ON THE DAY OF DISCHARGE: Dr. Marvin Go. CONSULTING ORTHOPEDIC SURGEON: Dr. Maurice Modi. CHIEF COMPLAINT: Mechanical fall. PRINCIPAL DIAGNOSES: Right superior pubic ramus fracture and left proximal fibula fracture in the setting of a mechanical fall; constipation; severe osteoarthritis and psoriatic arthritis in the bilateral knees. HISTORY OF PRESENT ILLNESS AND HOSPITAL COURSE: Rani Francisco is an 87-year - old female with a past medical history of severe osteoarthritis and psoriatic arthritis, osteoporosis, atrial fibrillation on Coumadin, and failure to thrive. She was at [employer] in a crowd when she lost her balance, tripped, and landed on her right side. Please see history and physical of Talon Griffin NP for full details. This happened two days prior to admission and she had noticed pain in the right hip area with any type of walking. She had not gotten out of her bed to urinate, and was instead incontinent in her bed. EMS was called and she was brought to the [facility] Emergency Room. There she had a hip/ pelvis x-ray which demonstrated a high probability for gross nondisplaced right superior pubic ramus fracture. This was confirmed with CT pelvis noncontrast which showed the nondisplaced fractures of the right superior pubic ramus, mild comminution. The fracture was near the pubic symphysis. The patient had an ankle x-ray which demonstrated no acute fracture. On hospital day number two, after evaluation by Dr. Modi who noted point tenderness with palpation of the tibial plateaus bilaterally, the patient had a bilateral knee x-ray which demonstrated a proximal left fibular fracture that was nondisplaced and severe bilateral osteoarthritis with interval worsening and small bilateral knee joint effusions. Dr. Modi recommended nonoperative management for both of these fractures. The patient's symptoms were controlled with increasing doses of Oxycodone and Tylenol prn. Dr. Modi recommended assisted transfers from lying to sitting positions as the patient tolerates and follow-up within two weeks with his office. Additional studies during hospitalization included a CT brain noncontrast which demonstrates stable age- appropriate chronic findings without evidence of acute traumatic injury, and a chest x-ray which demonstrated no acute cardiopulmonary abnormalities. Current dose of her pain medications include Oxycodone 10 mg q.4 hours for which she has received better pain relief than the previous 5 mm q.4 hours. Of note, she is on a bowel regimen of MiraLax, Senna, and Docusate and is getting a dose of Mag Citrate today. She has had a bowel movement with fleet enema. She has issues with failure to thrive in the past with a very poor appetite. She is being supplemented with Ensure shakes TID. Her INR was subtherapeutic on admission, 1.7, and she is beginning her reported home dose of 2.5 with improvement to 1.9 and then 2.2 the last two days and no changes in this medication were made. She should also follow- up with Dr. Mauri Ryan after discharge from [facility]. She did not feel like she could take care of herself even before these falls and likely will need long- term assisted placement at [facility] going forward. DISCHARGE MEDICATIONS: 1. Wellbutrin 150 mg p.o. daily. 2. Calcium 600 mg p.o. daily. 3. Donepezil 5 mg p.o. at bedtime. 4. Folic acid 1 mg p.o. daily. 5. Glucosamine one capsule p.o. daily. 6. Metoprolol Succinate 25 mg p.o. at bedtime and 50 mg p.o. q.a.m. 7. Omeprazole 20 mg p.o. daily. 8. Tylenol 650 mg p.o. q.4 hours prn (new). 9. Docusate 100 mg p.o. b.i.d. (new). 10. Methotrexate 7.5 mg p.o. weekly. 11. Metoprolol Succinate 50 mg p.o. daily. 12. Oxycodone 10 mg p.o. q.4 hours prn (new). 13. MiraLax 17 gm p.o. daily (new). 14. PreserVision AREDS soft gel one tab p.o. daily. 15. Senna two tabs p.o. at bedtime (new). 16. Warfarin 2.5 mg p.o. daily (new prescription for adjusting previous 4 mg tabs, it is unclear if she had just been cutting those in half and therefore is subtherapeutic at that time, but no change in prescribed dosing of 2.5 mg daily) . 17. Zofran 4mg ODT q6h prn (new) DISCHARGE DIET: No restrictions. Supplementation with Ensure t.i.d. and encourage caloric and protein intake in the setting of acute healing. BMI on discharge is 23.5, weight 56.5 kg. FOLLOW-UP: Please follow-up with Dr. Maurice Modi within two weeks of discharge and Dr. Mauri Ryan within five days of any discharge from [facility] and before that the providers at [facility]. TIME SPENT ON THIS DISCHARGE: 35 minutes. [id number]/[facility] #: [id number] LEONA
[2018-07-02] MEDS ORDERED: Ondansetron INJ* 2 MG/ML VIAL IV ONE (11:40)
[2018-07-02] MEDS ORDERED: Ondansetron ODT TAB* 4 MG SL PRN (11:44)
[2018-07-02 12:03] VITALS: BP 120/46
[2018-07-02] MEDS ORDERED: Sodium Phosphate ADULT ENEMA* 118 ml bottle PR ONE (14:23)
== END 2018-07-02 16:00 | DRG 536 ==
LOC: ED 08:35 → MED 14:22
PROVIDERS: ADMIT Hospitalist; ATTEND Internal Medicine
DX: S32.511A Fracture of superior rim of right pubis, initial encounter for closed fracture (principal); W01.0XXA Fall on same level from slipping, tripping and stumbling without subsequent striking against object, initial encounter; I48.91 Unspecified atrial fibrillation; I10 Essential (primary) hypertension; L40.50 Arthropathic psoriasis, unspecified; R62.7 Adult failure to thrive; S82.492A Other fracture of shaft of left fibula, initial encounter for closed fracture; M17.0 Bilateral primary osteoarthritis of knee; H91.90 Unspecified hearing loss, unspecified ear; Z88.3 Allergy status to other anti-infective agents; Z88.2 Allergy status to sulfonamides; Y92.009 Unspecified place in unspecified non-institutional (private) residence as the place of occurrence of the external cause; Z97.4 Presence of external hearing-aid; Z82.49 Family history of ischemic heart disease and other diseases of the circulatory system; Z83.3 Family history of diabetes mellitus; Z82.3 Family history of stroke; Z87.891 Personal history of nicotine dependence; Z90.49 Acquired absence of other specified parts of digestive tract; Z79.01 Long term (current) use of anticoagulants
CPT/HCPCS: 36415; 70450; 71045; 72192; 80048; 80053; 82550; 83690; 85025; 85610; 86140; 99284; A9270-GY; G8987-GO-CL; G8988-GO-CI; J2270; J2405

== ENCOUNTER 2019-06-28 03:08 | Emergency (ER) | payer MEDICARE ==
--- NOTE | 2019-06-28 03:33 | ED ---
Shortness of Breath - HPI Summary HPI Summary: 88 year old F patient brought to [facility] with a chief complaint of shortness of breath since 02:30, 06/28/19, per triage. Patient reports she went to bed the night before, 06/27/19, feeling fine but she woke up with SOB and right lower extremity pain. Patient reports she was feeling fine throughout the weekend as she was staying home due to her sons being sick with cancer. Patient denies cough, cold, hx of breathing problems like asthma or COPD, hx of cardiac diseases (though she says she cannot remember), chest pain, or abdominal pain. Reports hx smoking (quit a long time ago). Symptoms aggravated by nothing. Symptoms alleviated by nothing. - History of Current Complaint Chief Complaint: EDGeneral Hx Obtained From: Patient Onset/Duration: Sudden Onset, Lasting Hours, Still Present Aggravating Factors: Nothing Alleviating Factors: Nothing - Allergy/Home Medications Allergies/Adverse Reactions: Allergies Allergy/AdvReac Type Severity Reaction Status Date / Time sulfamethoxazole Allergy Hives Verified 06/28/19 03:16 [From Bactrim] trimethoprim [From Bactrim] Allergy Hives Verified 06/28/19 03:16 one that starts with a s Allergy Hives Uncoded 06/28/19 03:16 PMH/Surg Hx/FS Hx/Imm Hx Endocrine/Hematology History: Denies: Hx Diabetes Cardiovascular History: Reports: Hx Atrial Fibrillation, Hx Hypertension, Other Cardiovascular Problems/Disorders - Afib Denies: Hx Angina, Hx Coronary Artery Disease, Hx Hypercholesterolemia, Hx Myocardial Infarction, Hx Peripheral Vascular Disease, Hx Valvular Heart Disease Respiratory History: Denies: Hx Asthma, Hx Chronic Obstructive Pulmonary Disease (COPD) GI History: Reports: Hx Ulcer History: Reports: Other Problems/Disorders - stress incontinence per pt Denies: Hx Dialysis Musculoskeletal History: Reports: Hx Arthritis, Hx Osteoporosis Sensory History: Reports: Hx Hearing Aid Denies: Hx Contacts or Glasses, Hx Legally Blind, Hx Deafness Opthamlomology History: Denies: Hx Contacts or Glasses, Hx Legally Blind Neurological History: Reports: Hx Dementia - mild dementia, Other Neuro Impairments/Disorders - degenerative disc disease Denies: Hx Seizures Psychiatric History: Denies: Hx Inpatient Treatment - Surgical History Surgery Procedure, Year, and Place: appendectomy. loop recorder - Immunization History Date of Tetanus Vaccine: unknown Infectious Disease History: No Infectious Disease History: Denies: Hx of Known/Suspected MRSA, Traveled Outside the [place] in Last 30 Days - Family History Known Family History: Positive: Cardiac Disease, Diabetes, Other - CVA - Social History Alcohol Use: None Hx Substance Use: No Substance Use Type: Reports: None Smoking Status (MU): Former Smoker Type: Cigarettes Have You Smoked in the Last Year: No Review of Systems Positive: Other - denies cold Negative: Chest Pain Positive: Shortness Of Breath. Negative: Cough Negative: Abdominal Pain Positive: Other - right lower extremity pain All Other Systems Reviewed And Are Negative: Yes Physical Exam - Summary Physical Exam Summary: Appearance: Well-appearing, Well-nourished, lying in bed comfortably Skin: Warm, dry, no obvious rash Eyes: sclera anicteric, no conjunctival pallor ENT: mucous membranes moist, pharynx appears normal Neck: Supple, nontender Respiratory: Clear to auscultation, no signs of respiratory distress Cardiovascular: Normal S1, S2. No murmurs. Normal distal pulses in tibial and radial bilaterally. Abdomen: Soft, nontender, normal active bowel sounds present Musculoskeletal: Normal, Strength/ROM Intact Neurological: A&Ox3, awake and alert, mentation is normal, speech is fluent and appropriate Psychiatric: affect is normal, does not appear anxious or depressed Triage Information Reviewed: Yes Vital Signs On Initial Exam: Initial Vitals Temp Pulse Resp BP Pulse Ox 97.6 F 74 16 165/90 96 06/28/19 03:10 06/28/19 03:10 06/28/19 03:10 06/28/19 03:10 06/28/19 03:10 Vital Signs Reviewed: Yes Diagnostics - Vital Signs Vital Signs Temp Pulse Resp BP Pulse Ox 06/28/19 03:10 97.6 F 74 16 165/90 96 - Laboratory Result Diagrams: 06/28/19 03:34 06/28/19 03:34 Lab Statement: Any lab studies that have been ordered have been reviewed, and results considered in the medical decision making process. - EKG 0408 Cardiac Rate: NL - 74 BPM EKG Rhythm: Atrial Fibrillation Summary of EKG Findings: Atrial Fibrillation at 74 BPM and controlled ventricular response. Right bundle branch block. no STEMI. Course/Dx - Course Course Of Treatment: 88 year old F patient brought to [facility] with a chief complaint of shortness of breath since 02:30, 06/28/19, per triage. Patient reports she went to bed the night before, 06/27/19, feeling fine but she woke up with SOB and right lower extremity pain. Patient reports she was feeling fine throughout the weekend as she was staying home due to her sons being sick with cancer. Patient denies cough, cold, hx of breathing problems like asthma or COPD, hx of cardiac diseases (though she says she cannot remember), chest pain, or abdominal pain. Physical exam shows no abnormalities. Blood work shows no abnormalities except for RBC 3.47 L, MCV 102 H, MCH 35 H, RDW 17 H, Creatinine 1.38 H, Glucose 102 H, and Albumin/Globulin Ratio 0.9 L. Chest X-Ray reveals no acute process. EKG reveals atrial fibrillation at 74 BPM and controlled ventricular response, Right bundle branch block, no STEMI. Physician discussed discharge with patient who agreed. Patient will be discharged. Patient will follow up with doctor if needed. - Diagnoses Provider Diagnoses: Dyspnea Discharge - Sign-Out/Discharge Documenting (check all that apply): Patient Departure - discharge Patient Received Moderate/Deep Sedation with Procedure: No - Discharge Plan Condition: Good Disposition: HOME Patient Education Materials: A-fib (Atrial Fibrillation) (ED), Dyspnea (ED) Referrals: No Primary Care Phys,NOPCP [Primary Care Provider] - Additional Instructions: Contact your doctor tomorrow if you are feeling poorly. - Billing Disposition and Condition Condition: GOOD Disposition: Home - Attestation Statements Document Initiated by Rufina: Yes Documenting Scribe: Ana M Lowe Provider For Whom Rufina is Documenting (Include Credential): Dr. Cyrus Gonzales MD Scribe Attestation: Ana M Bowen, scribed for Dr. Cyrus Gonzales MD on 06/29/19 at 1825. Scribe Documentation Reviewed: Yes Provider Attestation: The documentation as recorded by the Ana M mason accurately reflects the service I personally performed and the decisions made by me, Dr. Cyrus Gonzales MD Status of Scribe Document: Viewed
[2019-06-28 03:41] LABS: ABS Eosinophils 0.4 10^3/ul (0-0.6); ABS Lymphocytes 2.3 10^3/ul (1.0-4.8); ABS Monocytes 0.6 10^3/ul (0-0.8); ABS Neutrophils 3.9 10^3/ul (1.5-7.7); Hematocrit 35 % (35-47); Lymphocyte % 31.7 %; Mean Corpuscular HGB Conc 34 g/dL (31-36); Mean Corpuscular Hemoglobin 35 pg (27-31); Mean Corpuscular Volume 102 fL (80-97); Mean Platelet Volume 9.1 fL (7.4-10.4); Nucleated Red Blood Cells % 0.1; Platelet Count 231 10^3/uL (150-450); Red Blood Count 3.47 10^6 /uL (3.70-4.87); Red Cell Distribution Width 17 % (10-15); White Blood Count 7.2 10^3/uL (3.5-10.8)
[2019-06-28 03:58] LABS: Albumin 3.6 g/dL (3.2-5.2); Albumin/Globulin Ratio 0.9 (1-3); BUN/Creatinine Ratio 10.9 (8-20); C Reactive Protein 3.04 mg/L (<8.01); EGFR African American 43.8 (>60); EGFR Non-African American 36.2 (>60); Globulin 3.8 g/dL (2-4); Potassium 3.8 mmol/L (3.5-5.0); Total Bilirubin 0.3 mg/dL (0.2-1.0); Total Protein 7.4 g/dL (6.4-8.9)
[2019-06-28 03:59] LABS: Troponin I 0.01 ng/mL (<0.04)
[2019-06-28 07:12] VITALS: BP 123/78
== END 2019-06-28 07:17 | disposition home or self-care (01) ==
LOC: ED 03:08
DX: R06.00 Dyspnea, unspecified (principal); M79.604 Pain in right leg; I48.91 Unspecified atrial fibrillation; I45.10 Unspecified right bundle-branch block; I10 Essential (primary) hypertension; F03.90 Unspecified dementia, unspecified severity, without behavioral disturbance, psychotic disturbance, mood disturbance, and anxiety; Z88.2 Allergy status to sulfonamides; Z87.891 Personal history of nicotine dependence
CPT/HCPCS: 36415; 71046; 80053; 84484; 85025; 86140; 93005; 99282

== ENCOUNTER 2019-07-24 10:26 | Inpatient (IN) | payer MEDICARE ==
[2019-07-24] MEDS ORDERED: NS 0.9% 1000 ML** 1,000 ML IV ONE (10:27)
[2019-07-24] MEDS ORDERED: Ondansetron INJ* 2 MG/ML VIAL IV ONE (10:34)
--- NOTE | 2019-07-24 10:34 | ED ---
Neurological HPI - HPI Summary HPI Summary: This patient is an 88 year old female with a Hx of dementia and AFIB brought in by EMS presenting to [facility] with a chief complaint of possible stroke since 30 minutes ago. The patient has had no history of TIA or CVA previously. Patient is on warfarin. EMS reports she has slurred speech, facial droop on the left side, and left arm weakness. The patient was experiencing nausea and vomiting while in CT once placed supine. Medications reviewed. Allergies noted. Warfarin TAB(*) [Coumadin TAB(*)] 2.5 mg PO DAILY@1700 #30 tab 07/02/18 [Rx Confirmed 06/28/19] - History of Current Complaint Stated Complaint: CODE GUTHRIE PER EMS Time Seen by Provider: 07/24/19 10:26 Hx Obtained From: EMS Hx From Patient Unobtainable Due To: Dementia Onset/Duration: Started minutes ago Character: Motor Weakness, Impaired Speech Associated Signs and Symptoms: Positive: Weakness, Impaired Speech - Additional Pertinent History Primary Care Physician: [id number] - Allergy/Home Medications Allergies/Adverse Reactions: Allergies Allergy/AdvReac Type Severity Reaction Status Date / Time sulfamethoxazole Allergy Hives Verified 07/24/19 11:50 [From Bactrim] trimethoprim [From Bactrim] Allergy Hives Verified 07/24/19 11:50 Home Medications: Home Medications BuPROPion XL* [Bupropion XL*] 300 mg PO DAILY 07/24/19 [History Confirmed ] Calcium Carbonate [Calcium] 600 mg PO DAILY 07/24/19 [History Confirmed 07/24/19 ] Donepezil HCL (NF) [Aricept (NF)] 10 mg PO BEDTIME 07/24/19 [History Confirmed 07/24/19] Omeprazole 40 mg PO DAILY 07/24/19 [History Confirmed 07/24/19] Warfarin TAB(*) [Coumadin TAB(*)] 1.25 mg PO EVERY OTHER DAY 07/24/19 [History Confirmed 07/24/19] Warfarin TAB(*) [Coumadin TAB(*)] 2.5 mg PO EVERY OTHER DAY 07/24/19 [History Confirmed 07/24/19] PMH/Surg Hx/FS Hx/Imm Hx Endocrine/Hematology History: Denies: Hx Diabetes Cardiovascular History: Reports: Hx Atrial Fibrillation, Hx Hypertension, Other Cardiovascular Problems/Disorders - Afib Denies: Hx Angina, Hx Coronary Artery Disease, Hx Hypercholesterolemia, Hx Myocardial Infarction, Hx Peripheral Vascular Disease, Hx Valvular Heart Disease Respiratory History: Denies: Hx Asthma, Hx Chronic Obstructive Pulmonary Disease (COPD) GI History: Reports: Hx Ulcer History: Reports: Other Problems/Disorders - stress incontinence per pt Denies: Hx Dialysis Musculoskeletal History: Reports: Hx Arthritis, Hx Osteoporosis Sensory History: Reports: Hx Hearing Aid Denies: Hx Contacts or Glasses, Hx Legally Blind, Hx Deafness Opthamlomology History: Denies: Hx Contacts or Glasses, Hx Legally Blind Neurological History: Reports: Hx Dementia - mild dementia, Other Neuro Impairments/Disorders - degenerative disc disease Denies: Hx Seizures Psychiatric History: Denies: Hx Inpatient Treatment - Surgical History Surgery Procedure, Year, and Place: appendectomy. loop recorder - Immunization History Date of Tetanus Vaccine: unknown Infectious Disease History: Denies: Hx of Known/Suspected MRSA - Family History Known Family History: Positive: Cardiac Disease, Diabetes, Other - CVA - Social History Alcohol Use: None Hx Substance Use: No Substance Use Type: Reports: None Smoking Status (MU): Former Smoker Type: Cigarettes Have You Smoked in the Last Year: No Review of Systems Negative: Fever Positive: Vomiting, Nausea Neurological: Other - Facial droop, left side Positive: Weakness, Slurred Speech All Other Systems Reviewed And Are Negative: Yes Physical Exam - Summary Physical Exam Summary: Constitutional: Well-developed, Well-nourished, Alert. (-) Distressed Skin: Warm, Dry HENT: Normocephalic; Atraumatic Eyes: Conjunctiva normal Neck: Musculoskeletal ROM normal neck. (-) JVD, (-) Stridor, (-) Tracheal deviation Cardio: Rhythm regular, rate normal, Heart sounds normal; Intact distal pulses; The pedal pulses are 2+ and symmetric. Radial pulses are 2+ and symmetric. (-) Murmur Pulmonary/Chest wall: Effort normal. (-) Respiratory distress, (-) Wheezes, (-) Rales Abd: Soft, (-) tenderness, (-) Distension, (-) Guarding, (-) Rebound Musculoskeletal: (-) Edema Lymph: (-) Cervical adenopathy Neuro: Alert, Oriented x2 Cranial nerves II-XII are grossly intact. (-) Dysmetria, (-) Nystagmus, (-) Ataxia by finger to nose testing. Psych: Mood and affect Normal Triage Information Reviewed: Yes Vital Signs On Initial Exam: Temp Pulse Resp BP Pulse Ox 96.7 F 77 16 142/86 96 07/24/19 10:51 07/24/19 11:06 07/24/19 11:06 07/24/19 11:04 07/24/19 11:06 Vital Signs Reviewed: Yes Diagnostics - Laboratory Result Diagrams: 07/24/19 11:10 07/24/19 11:10 Lab Statement: Any lab studies that have been ordered have been reviewed, and results considered in the medical decision making process. - CT Brain CT Interpretation Completed By: Radiologist Summary of CT Findings: Atrophy. Chronic ischemic white matter change is noted. Overall no changes noted since 06/29/18. ED Provider has reviewed this report. CTA Head CT Interpretation Completed By: Radiologist Summary of CT Findings: Atherosclerosis at the carotid bulb bilateraly. Likely 70% stenosis of the right internal carotded artery due to dense calcific plaque noted. NO evidence of carotid artery dissection is noted. Approximately 50% stenosis of the origin of the left internal carotid artery is noted. Dense calcific plaque is noted. No evidence of left internal caroted artery dissection is noted. Atherlosclerosis of the intracavemous portions of the internal carotid arteries bilaterally. No definite branch occlusion or aneurysmal dilatation is noted. Dominant left vertebral artery. The intracranial circulation demonstrates no branch occlusion or aneurysmal dilatation of the intracranial vessels. ED Provider has reviewed this report. - EKG 1118 Cardiac Rate: NL - 75 BPM Summary of EKG Findings: Baseline with a lot of artifact. Rhythm appears regular with p-waves present in some leads, likey NSR. 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 Non-Paretic Hand: Both Correctly Best Gaze (Only Horizontal Eye Movement): Normal Visual Field Testing: Partial Hemianopia Facial Paresis-Pt to Smile & Close Eyes or Grimace Symmetry: Normal/Symmetrical Motor Function - Right Arm: No Drift-Holds 10 Seconds Motor Function - Left Arm: Drifts LT 10 seconds Motor Function - Right Leg: Effort Against Clayton Motor Function - Left Leg: Effort Against Clayton Limb Ataxia-Must be out of Proportion to Weakness Present: Absent Sensory (Use Pinprick to Test Arms/Legs/Trunk/Face): Pinprick Less on Affected Best Language (Describe Picture, Name Items): No Aphasia Dysarthria (Read Several Words): Normal Extinction and Inattention: No Abnormality Total Score: 8 Re-Evaluation - Re-Evaluation First Eval Re-Evaluation Time: 11:55 Comment: Spoke to Dr. Gerard, neurology who requested a formal neurology consult. Course/Dx - Course Course Of Treatment: Patient was brought in as a code stout. Patient wasn't a TPA window but was on Coumadin with an INR of 2.4 and is not a TPA candidate. Patient initially had dense left-sided irma-paresis or EMS which improved by the time she got here. Patient had an NIHSS of 8 here with some most likely due to patient's limitations in her neurologic exam and underlying leg issues. She had a stat CT head which showed no hemorrhage. Patient CTA which showed no large vessel occlusion. Patient was evaluated by the stroke neurologist in [place] who believes she needed to be admitted here for further workup and management. - Diagnoses Provider Diagnoses: CVA (cerebral vascular accident) - Physician Notifications Discussed Care Of Patient With: Aditya Corona - Neurology at [facility] Discussed With Above Provider: 11:17 - Telestroke Instructed by Provider To: Admit As Inpatient - Critical Care Time Critical Care Time: 30-74 min - 35 mins Discharge ED - Sign-Out/Discharge Documenting (check all that apply): Patient Departure - Admission to Dr. Fu , Hospitalist Patient Received Moderate/Deep Sedation with Procedure: No - Discharge Plan Condition: Stable Disposition: ADMITTED TO [facility] Referrals: Mauri Ryan MD [Primary Care Provider] - - Billing Disposition and Condition Condition: STABLE Disposition: Admitted to [facility] - Attestation Statements Document Initiated by Rufina: Yes Documenting Radhaiblove: Dewey Snell Provider For Whom Rufina is Documenting (Include Credential): Donte Cabrera MD Scribe Attestation: Dewey Bowen, scribed for Donte Cabrera MD on 07/24/19 at 1230. Scribe Documentation Reviewed: Yes Provider Attestation: The documentation as recorded by the Dewey mason accurately reflects the service I personally performed and the decisions made by me, Donte Cabrera MD Status of Scribe Document: Viewed
[2019-07-24] MEDS ORDERED: Iodixanol* (CONTRAST) 320 MG/ML 100 ML SDV IV ONE (10:48)
[2019-07-24 11:23] LABS: ABS Basophils 0.1 10^3/ul (0-0.2); ABS Lymphocytes 0.7 10^3/ul (1.0-4.8); ABS Monocytes 0.3 10^3/ul (0-0.8); ABS Neutrophils 6.8 10^3/ul (1.5-7.7); Eosinophil % 0.4 %; Hematocrit 32 % (35-47); Hemoglobin 10.7 g/dL (12.0-16.0); Lymphocyte % 8.9 %; Mean Corpuscular HGB Conc 33 g/dL (31-36); Mean Corpuscular Hemoglobin 34 pg (27-31); Mean Corpuscular Volume 103 fL (80-97); Mean Platelet Volume 9.5 fL (7.4-10.4); Platelet Count 226 10^3/uL (150-450); Red Blood Count 3.13 10^6 /uL (3.70-4.87); Red Cell Distribution Width 19 % (10-15); White Blood Count 7.9 10^3/uL (3.5-10.8)
[2019-07-24 11:25] LABS: Activated Partial Thrombo Time 35.2 seconds (26.0-38.0); INR 2.41 (0.82-1.09)
[2019-07-24 11:35] LABS: Albumin 3.5 g/dL (3.2-5.2); BUN/Creatinine Ratio 12.1 (8-20); EGFR African American 42.7 (>60); EGFR Non-African American 35.3 (>60); Globulin 3.5 g/dL (2-4); HDL Cholesterol 37.7 mg/dL; Potassium 4.2 mmol/L (3.5-5.0); Total Bilirubin 0.5 mg/dL (0.2-1.0)
[2019-07-24 11:36] LABS: Troponin I 0.01 ng/mL (<0.04)
[2019-07-24] MEDS ORDERED: Acetaminophen TAB* 325 MG PO PRN (13:56)
[2019-07-24 14:49] LABS: TSH (Thyroid Stimulating Horm) 4.37 mcIU/mL (0.34-5.60)
[2019-07-24 15:50] LABS: Troponin I 0.01 ng/mL (<0.04)
[2019-07-24] MEDS: Metoprolol Succinate XL TAB* 25 MG PO SCH (20:15)
[2019-07-24] MEDS: Donepezil TAB* 5 MG PO SCH (20:15)
--- NOTE | 2019-07-24 21:27 | HP ---
Amended report to enter cosigning physician. CC: Dr. Ryan* HISTORY AND PHYSICAL: DATE OF ADMISSION: 07/24/19 PROVIDER: Radha Hobbs NP PRIMARY CARE PROVIDER: Dr. Ryan. ATTENDING PHYSICIAN WHILE IN THE HOSPITAL: Dr. Zaki Fu* (dictated by Radha Hobbs NP). CHIEF COMPLAINT: Left-sided weakness. HISTORY OF PRESENT ILLNESS: Ms. Francisco is an 88-year-old female with a past medical history significant for atrial fibrillation, anxiety, and GERD, who presented to the emergency room with acute onset of left-sided weakness. She was a code stout on arrival to the emergency room. The patient reports that this morning she felt sick to her stomach and she had some nausea and was vomiting. The son reports that she has had this nausea on and off for several months and recently had her primary care increased her omeprazole to 40 mg p.o. daily. The patient has an aide that comes in and works with her twice a day. This morning at about 9:30 the patient got up to go to the bathroom. The aide heard the patient was crying, she was unable to communicate, and her left side was flaccid. So, EMS was called and the patient was brought to the emergency room for further evaluation. Upon arrival to the emergency room, the patient had an NIH score of 8. Anurag stout was called and Telestroke was initiated with [facility], who found her to have an NIH of 4. She had a CTA of the brain and a CT of the head and neck. The CTA of the brain did not show any acute intracranial hemorrhage or acute stroke. Upon my evaluation, the patient is able to move her left side, push/pull is intact on the left side, left hand reinsurance accountant is intact, and she does have mobility of bilateral arms. Due to the concern of TIA versus CVA, Hospital Medicine was asked to see and evaluate for admission. PAST MEDICAL HISTORY: Significant for: 1. Atrial fibrillation, on chronic anticoagulation with Coumadin. 2. GERD. 3. Anxiety. PAST SURGICAL HISTORY: 1. Tonsillectomy. 2. Cholecystectomy. 3. Appendectomy. HOME MEDICATIONS: Include: 1. Metoprolol 25 mg in the evening, 50 mg in the a.m. 2. Coumadin 2.5 alternating with 1.25 mg p.o. daily. 3. Omeprazole 40 mg p.o. daily. 4. Bupropion 300 mg p.o. daily. 5. Calcium 600 mg p.o. daily. 6. Folic acid 1 mg p.o. daily. 7. AREDS2, one tablet p.o. b.i.d. 8. Methotrexate 7.5 mg every Friday. ALLERGIES: To BACTRIM. FAMILY HISTORY: Father with a history of stroke. Mother with diabetes, mother with stomach cancer. SOCIAL HISTORY: The patient quit smoking in 1959. She denies any illicit drug use or alcohol use. She lives alone. Surrogate decision maker in the event she is unable to make her own decisions is her son. She walks with a walker and does have home assistance with an aide 2 times a day. REVIEW OF SYSTEMS: The patient denies any fevers or unintended weight loss. She does report chills, but does report that she has chronic chills. Denies any chest pain, edema, cough, hemoptysis, shortness of breath. She does report nausea and vomiting this morning. Denies any diarrhea or abdominal pain. Denies any gross hematuria, dysuria or focal weakness. She did complain of weakness on the left side that has improved. The patient has no complaints at this time. Denies any visual complaints or changes in her vision or difficulty sitting. She denies any difficulty swallowing, arthralgias, myalgias, rashes, lesions, open sores, psychosis or anxiety. PHYSICAL EXAMINATION GENERAL: At this time, Ms. Francisco is an 88-year-old female. She is alert and oriented, resting on the stretcher in the emergency room. Speech is clear. Her thought process is intact. She is hard of hearing. VITAL SIGNS: Blood pressure 135/65, heart rate 82, respirations are 20, O2 saturation 100% on room air, temperature was 96.7. HEENT: Head is atraumatic, normocephalic. Eyes: EOMs are intact. Sclerae anicteric and not pale. Oral mucosa appear to be moist. NECK: Supple. LUNGS: Clear to auscultation bilaterally. No wheezes, rales or rhonchi. CARDIAC: S1 and S2. Regular rate and rhythm. There are no rubs or gallops. ABDOMEN: Soft and nontender. Bowel sounds are present x4. EXTREMITIES: Pedal pulses are +2 bilaterally. There is no clubbing or cyanosis. NEUROLOGIC: She is alert and oriented x3. Speech is clear. Thought process is intact. Tongue is midline. Smile is equal. There is no facial asymmetry. Shoulder shrug is intact. Handgrips are equal. Push/pull is intact. Sensation is intact to all 4 extremities. There is no pronator drift. SKIN: Intact. LABORATORY DATA AND DIAGNOSTIC STUDIES: WBCs are 7.9, RBCs 3.13, hemoglobin 10.7, hematocrit is 32, platelet count is 226. INR was 2.41. Sodium 135, potassium 4.2, chloride 99, carbon dioxide is 29, anion gap is 7, BUN is 17, creatinine 1.41, glucose is 128, lactic acid is 2.8, calcium 9.0. ASTs were 17 , ALTs were 10, alkaline phosphatase was 44. Troponin was 0.01. Cholesterol was 176, LDL was 113, HDL was 37. TSH was 4.37. She had a CT of the brain. Radiologist's impression: Atrophy, chronic ischemic white matter changes, no intracranial mass or hemorrhage, no change since 06/29/18. She had a chest x-ray. Radiologist's impression: No active cardiopulmonary disease. She had an electrocardiogram, which showed atrial fibrillation at a rate of 75. She had a CTA of the head. Radiologist's impression: Atherosclerosis at the carotid bulb bilaterally, likely 70% stenosis of the right internal carotid artery due to dense calcific plaque noted. No evidence of carotid artery dissection. Approximately 50% stenosis at the origin of the left internal carotid artery. Dense calcific plaque is noted. No evidence of left internal carotid artery dissection. Atherosclerosis of the intracavernous portions of the internal carotid arteries bilaterally. No definite branch occlusion or aneurysmal dilation is noted. Dominant left vertebral artery. The intracranial circulation demonstrates no branch occlusion or aneurysmal dilation of the intracranial vessels. ASSESSMENT AND PLAN: Ms. Francisco is an 88-year-old female with a past medical history significant for atrial fibrillation, on chronic anticoagulation with Coumadin, gastroesophageal reflux disease, and anxiety, who presented to the emergency room with complaints of left-sided weakness. She will be admitted for: 1. Left-sided weakness, rule out cerebrovascular accident versus transient ischemic attack: The patient was a code stout. She had a consultation by [facility] through [facility], who has recommended to hold Coumadin until after receiving an MRI. Neuro checks q.4 hours, MRI of the brain, transthoracic echocardiogram with bubble study, lipid profile, and a hemoglobin A1C, which have all been ordered. I also have consulted Dr. Gerard from Neurology who will see the patient in consultation. He has recommended carotid duplex, which has been ordered. We will continue with neuro checks q.4 hours. She will be placed on telemetry and monitored overnight. The patient is on chronic Coumadin therapy and we will hold off on aspirin and further antiplatelets at this time until seen by Neurology. We will start her on statin therapy based on her fasting lipid profile in the AM. 2. Atrial fibrillation: The patient should continue on metoprolol 50 mg in the morning and 25 mg at bedtime and we will resume her Coumadin as advised by Neurology as [facility] has recommended holding until MRI. . 3. Anxiety: She should continue on bupropion as previously prescribed. 4. Gastroesophageal reflux disease: She should continue on omeprazole 40 mg p.o. daily. 5. Nausea and vomiting: The patient did have an episode of nausea and vomiting. She does complain of mild nausea at this time. We will continue with Zofran. The patient is refusing further workup in regards to her nausea at this time. We will symptomatically treat her. 6. Elevated Lactic Acid. Patient does not have any obvious sign of infection , she denies cough or congestion. Denies fever or chills. Denies urinary symptoms. UA is currently pending. Patient is afebrile and not tachycardic . At this time the patient does not appear to have an acute source of infection. Chest x ray is negative for pneumonia as well. 7. FEN: She is n.p.o. pending dysphagia screen. If she passes her dysphagia screen, she can have a regular diet. 8. Code status: She is a DNR. 9. DVT prophylaxis: The patient does take Coumadin. We will place this on hold at this time. I will place her on SCDs. TIME SPENT: Time spent on this admission was approximately 60 minutes, greater than half of that time was spent at the bedside reviewing events leading thus far to her hospitalization, performing physical exam, and reviewing my plan of care. I have discussed this with my attending, Dr. Zaki Fu, he is in agreement with my plan. RADHA OHBBS, REHAB SERVICES AIDE [id number]/[facility] #: [id number] [facility]OVE HOSPITALNilsa
[2019-07-24] MEDS: Nystatin TOP POWDER* 15 GM BTL TOPICAL SCH (23:01)
[2019-07-25 02:17] LABS: Magnesium 1.7 mg/dL (1.9-2.7)
[2019-07-25 06:38] LABS: ABS Basophils 0.1 10^3/ul (0-0.2); ABS Eosinophils 0.1 10^3/ul (0-0.6); ABS Lymphocytes 1.6 10^3/ul (1.0-4.8); ABS Monocytes 0.6 10^3/ul (0-0.8); ABS Neutrophils 5.6 10^3/ul (1.5-7.7); Eosinophil % 1.3 %; Hematocrit 28 % (35-47); Hemoglobin 9.5 g/dL (12.0-16.0); Lymphocyte % 20.5 %; Mean Corpuscular HGB Conc 34 g/dL (31-36); Mean Corpuscular Hemoglobin 35 pg (27-31); Mean Corpuscular Volume 104 fL (80-97); Mean Platelet Volume 9.8 fL (7.4-10.4); Platelet Count 192 10^3/uL (150-450); Red Blood Count 2.72 10^6 /uL (3.70-4.87); Red Cell Distribution Width 19 % (10-15)
[2019-07-25 06:52] LABS: INR 2.72 (0.82-1.09)
[2019-07-25 06:58] LABS: BUN/Creatinine Ratio 12.6 (8-20); Calcium 8.3 mg/dL (8.6-10.3); EGFR African American 51.9 (>60); EGFR Non-African American 42.9 (>60); HDL Cholesterol 34.8 mg/dL; Magnesium 1.7 mg/dL (1.9-2.7); Potassium 3.5 mmol/L (3.5-5.0)
[2019-07-25] MEDS ORDERED: Magnesium Sulfate 2 GM IV* 2 GM/50 ML BAG IVPB ONE (08:25)
[2019-07-25] MEDS: Calcium Carbonate TAB* 1250 MG (CALCIUM 500 MG) PO SCH (08:50)
[2019-07-25] MEDS: Pantoprazole TAB * 40 MG TAB PO SCH (08:50)
[2019-07-25] MEDS: Folic Acid TAB* 1 MG PO SCH (08:50)
[2019-07-25] MEDS: Metoprolol Succinate XL TAB* 50 MG PO SCH (09:02)
[2019-07-25] MEDS: BuPROPion XL* 300 MG TAB.XL PO SCH (09:03)
[2019-07-25] MEDS: Nystatin TOP POWDER* 15 GM BTL TOPICAL SCH ×2 (09:05→21:45)
--- NOTE | 2019-07-25 10:15 | PN ---
Subjective Date of Service: 07/25/19 Interval History: Pt states she is tired and cold. She is unsure why she is here and "doesn't remember." She denies weakness, and does not remember coming to ER for L-sided weakness. She admits to nausea at times, denies v, abd pain. She denies vision changes, headache, dysphagia, changes in speech. She denies weakness, loss of sensation. Objective Active Medications: Acetaminophen (Tylenol Tab*) 650 mg PO Q4H PRN Bupropion HCl (Bupropion Xl*) 300 mg PO DAILY RANDY Calcium Carbonate (Calcium Carbonate Tab*) 625 mg PO DAILY RANDY Donepezil HCl (Aricept Tab*) 10 mg PO BEDTIME RANDY Folic Acid (Folvite Tab*) 1 mg PO DAILY RANDY Metoprolol Succinate (Toprol Xl Tab*) 25 mg PO BEDTIME RANDY Metoprolol Succinate (Toprol Xl Tab*) 50 mg PO QAM RANDY Nystatin (Nystatin Top Powder*) 1 applic TOPICAL BID RANDY Pantoprazole Sodium (Protonix Tab*) 40 mg PO DAILY RANDY Vital Signs: Temp Pulse Resp BP Pulse Ox 97.7 F 80 18 104/48 97 07/25/19 03:18 07/25/19 03:18 07/25/19 03:18 07/25/19 08:00 07/25/19 03:18 Oxygen Devices in Use Now: None Appearance: Pt is sitting up in chair. She appears tired; appears her stated age. NAD. Eyes: No Scleral Icterus, PERRLA Ears/Nose/Mouth/Throat: NL Teeth, Lips, Gums, Clear Oropharnyx, Mucous Membranes Moist Neck: NL Appearance and Movements; NL JVP, Trachea Midline, - - Carotid bruits Respiratory: Symmetrical Chest Expansion and Respiratory Effort, Clear to Auscultation Cardiovascular: NL Sounds; No Murmurs; No JVD, RRR, No Edema Abdominal: NL Sounds; No Tenderness; No Distention, No Hepatosplenomegaly Extremities: No Edema, No Clubbing, Cyanosis Neurological: NL Sensation, - - Alert. Oriented to self only. UE strength equal; kitchen bath designer strength equal. LLE slightly weaker than RLE. CN intact. Face and smile symmetrical. Result Diagrams: 07/25/19 06:17 07/25/19 06:17 Assess/Plan/Problems-Billing Assessment: 88yof PMHx AF, GERD, anxiety presents with L sided weakness, facial asymmetry, dysarthria. - Patient Problems (1) Left-sided weakness Comment: -Presented with L weakness, facial asymmetry, dysarthria -Improving; pt with slight residual LLE weakness -CT brain with no acute changes -CTA head, neck: 70% stenosis R int carotid, 50% L int carotid stenosis; no branch occlusion in intracranial circulation -Neurology consulted, notified -Awaiting TTE, MRI head -LDL 94; start atorvastatin 80 -Awaiting HA1c results (2) Nausea & vomiting Comment: -Nausea continues, no vomiting, abd pain, diarrhea -Continue zofran (3) Elevated lactic acid level Comment: -Resolved -Lactic cleared from 2.8 to 1.0 (4) Afib Comment: -Continue metoprolol 50 a.m., 25 p.m. -Continue coumadin (5) GERD (gastroesophageal reflux disease) Comment: -Pantoprazole (6) DVT prophylaxis Comment: -Continue coumadin (7) DNR (do not resuscitate) Comment: -MOLST on file Status and Disposition: Inpatient. Discharge when stable.
--- NOTE | 2019-07-25 16:17 | CONS ---
NEUROLOGY CONSULTATION: DATE OF CONSULT: 07/25/19 LOCATION: She in an inpatient and she is in room 450. REFERRING PROVIDER: Radha Hobbs NP PRIMARY CARE PROVIDER: Dr. Ryan. CHIEF COMPLAINT: History of left-sided weakness. HISTORY OF PRESENT ILLNESS: Rani Francisco is an 88-year-old woman, who was admitted yesterday after transient left-sided weakness. She has history of atrial fibrillation, on anticoagulation. She presented to the emergency room with left- sided weakness, which apparently started yesterday morning. By the time she was in the emergency room, her left-sided weakness had improved considerably and she had an NIH Stroke Scale of 4. She had a telestroke consultation with the [facility] and tPA was not recommended. She had a CT angiogram of the neck and brain, which did not reveal large vessel occlusion. She was admitted. Since then, her left-sided weakness has resolved. PAST MEDICAL HISTORY: Notable for chronic atrial fibrillation, gastroesophageal reflux, anxiety, cognitive impairment. PAST SURGICAL HISTORY: She has had a tonsillectomy, cholecystectomy, and appendectomy. MEDICATIONS: At home consist of: 1. Coumadin. 2. Bupropion 300 mg p.o. daily. 3. Folic acid 1 mg p.o. daily. 4. Metoprolol 25 mg p.o. q.a.m. and 50 mg q.h.s. 5. Omeprazole 40 mg p.o. daily. 6. Methotrexate 7.5 mg p.o. daily. 7. Calcium 600 mg p.o. daily. ALLERGIES: She is allergic to SULFA DRUGS. FAMILY HISTORY: Notable for father dying of a stroke. SOCIAL HISTORY: She lives alone. She does not smoke. 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 REVIEW OF SYSTEMS: Unremarkable. Specifically, no change in weight, fevers, chills, abdominal problems, shortness of breath, or chest pain. The rest of the 14- point review of systems is unremarkable. PHYSICAL EXAM: She is awake and alert. She is well hydrated and well nourished. Temperature 97.7, blood pressure 110/48, heart rate is about 66 and regular. Respiratory rate is 20 and oxygen saturation is 98% on room air. Heart is in an irregular rhythm, but no murmurs. Lungs are clear. There are no cervical bruits. Neurological Exam: Pupils, fundi, and eye movements are normal. Visual chance are full to confrontation. Facial musculature is symmetric. Facial sensation to light touch is symmetric. She is little hard of hearing. Palate and tongue are normal and speech is clear. Neck strength is normal. Motor exam reveals normal muscle tone, bulk, and strength proximally and distally. There is no drift of any limbs. Sensory exam is intact to light touch and pin discrimination in all limbs. Vibration is intact in all limbs. Reflexes are intact and symmetric. Plantar responses are flexor bilaterally. There is no rest, sustention, or action tremor. Gait was not tested. She is alert and oriented. She has poor memory. Language is fluent. DIAGNOSTIC STUDIES/LAB DATA: Laboratory studies notable for a CT scan of the brain interpreted as atrophy and chronic ischemic white matter changes. I reviewed the study and I agree with the interpretation. CT angiogram of the brain is interpreted as showing 70% stenosis of the right internal carotid artery and approximately 50% of the left internal carotid artery. I agree there are atherosclerotic changes, but I think the 70% stenosis is an overestimate. Laboratory studies also notable for a CBC with anemia with a hemoglobin of 9.5 this morning and MCV of 104. Chemistry profile is normal. Cholesterol 147, LDL 94. Lactic acid on presentation was 2.8, but dropped down to 1.0 this morning. Magnesium is low at 1.7. Creatinine is elevated at 1.19. Her INR yesterday was 2.41, this morning is 2.72. IMPRESSION AND PLAN: Impression is that of a transient ischemic attack. An MRI of the brain has been ordered and is pending. Her lipid profile is slightly suboptimal with an LDL of 94. She is appropriately anticoagulated. I would recommend checking a vitamin B12 level given her cognitive problems and an elevated MCV. She is already fully anticoagulated. Whether or not to switch to a novel anticoagulant is of dubious value given her INR is in the therapeutic range. We will continue to follow her while she is in the hospital. [id number]/[facility] #: [id number] LEONA
[2019-07-25] MEDS ORDERED: Atorvastatin* 80 MG TAB PO ONE (21:00)
[2019-07-25] MEDS: Donepezil TAB* 5 MG PO SCH (21:45)
[2019-07-25] MEDS: Atorvastatin* 80 MG TAB PO SCH (21:45)
[2019-07-25] MEDS: Metoprolol Succinate XL TAB* 25 MG PO SCH ×2 (21:46→22:43)
[2019-07-26 06:17] LABS: ABS Basophils 0.1 10^3/ul (0-0.2); ABS Eosinophils 0.4 10^3/ul (0-0.6); ABS Lymphocytes 1.8 10^3/ul (1.0-4.8); ABS Monocytes 0.6 10^3/ul (0-0.8); ABS Neutrophils 5.5 10^3/ul (1.5-7.7); Eosinophil % 4.7 %; Hematocrit 29 % (35-47); Hemoglobin 9.6 g/dL (12.0-16.0); Lymphocyte % 20.9 %; Mean Corpuscular HGB Conc 34 g/dL (31-36); Mean Corpuscular Hemoglobin 35 pg (27-31); Mean Corpuscular Volume 104 fL (80-97); Mean Platelet Volume 9.6 fL (7.4-10.4); Platelet Count 189 10^3/uL (150-450); Red Blood Count 2.75 10^6 /uL (3.70-4.87); Red Cell Distribution Width 19 % (10-15); White Blood Count 8.4 10^3/uL (3.5-10.8)
[2019-07-26 06:41] LABS: BUN/Creatinine Ratio 12.1 (8-20); Calcium 8.5 mg/dL (8.6-10.3); EGFR African American 46.1 (>60); EGFR Non-African American 38.1 (>60); Potassium 3.7 mmol/L (3.5-5.0)
[2019-07-26] MEDS: Pantoprazole TAB * 40 MG TAB PO SCH (08:39)
[2019-07-26] MEDS: BuPROPion XL* 300 MG TAB.XL PO SCH (08:39)
[2019-07-26] MEDS: Folic Acid TAB* 1 MG PO SCH (08:40)
[2019-07-26] MEDS: Calcium Carbonate TAB* 1250 MG (CALCIUM 500 MG) PO SCH (08:40)
[2019-07-26] MEDS: Metoprolol Succinate XL TAB* 50 MG PO SCH (08:40)
[2019-07-26] MEDS: Nystatin TOP POWDER* 15 GM BTL TOPICAL SCH ×2 (08:41→22:24)
--- NOTE | 2019-07-26 11:31 | ECHO ---
*[facility]* [place] [address] Fax #: [phone] Transthoracic Echocardiogram Patient: Rani Francisco : 1930 Study Date: 07/26/2019 Age: 88 Gender: F HR: 65 bpm Height: 61 in /154.9 cm BSA: 1.58 m^2 Weight: 130.7 lb /59.4 kg BMI: 24.8 kg/m^2 *Operations And Maintenance Specialist: * Janeth Edmondson RD *Referring Physician: * Joyce Chong *Reading Physician: * Yonny Cline MD Indications: CVA. History: Atrial fibrillation. Risk factors: Hypertension. Mild Dementia. Conclusions Summary: - Left ventricle: Systolic function is normal. The estimated ejection fraction is 55-60%. Wall motion is normal; there are no regional wall motion abnormalities. - Left atrium: The atrium is severely dilated. - Atrial septum: A PFO is not demonstrated by color Doppler or agitated saline contrast. - Mitral valve: There is mild to moderate regurgitation. - Aortic valve: There is no evidence of stenosis. There is mild regurgitation. - Tricuspid valve: There is mild-moderate regurgitation. - Ascending aorta: The ascending aorta is appears normal. - Pericardium, extracardiac: There is no significant pericardial effusion. - Compared to study of 07/23/17, there is no change. Study data: Transthoracic echocardiogram. Procedure: Transthoracic echocardiography was performed. Image quality was fair. The study was technically limited due to restricted patient mobility. A bubble study was performed. Complete 2D, spectral Doppler, and color flow Doppler. Location: Bedside. Patient status: Inpatient. Patient room number: 450-2. Rhythm: Normal sinus rhythm. Findings Left ventricle: The cavity size is below normal. There is focal septal basal hypertrophy. Systolic function is normal. The estimated ejection fraction is 55-60%. Wall motion is normal; there are no regional wall motion abnormalities. There is no consistent Doppler evidence of clinically significant diastolic dysfunction. Right ventricle: The cavity size is mildly dilated. Systolic function is low normal. Systolic pressure is within the normal range. Left atrium: The atrium is severely dilated. Right atrium: The atrium is mildly dilated. Atrial septum: A PFO is not demonstrated by color Doppler or agitated saline contrast. Negative Bubble Study. Images 39 and 40. Mitral valve: The leaflets are mildly thickened. The findings are consistent with mild stenosis. There is mild to moderate regurgitation. Aortic valve: The annulus is mildly calcified. The valve is trileaflet. The leaflets are mildly thickened. There is no evidence of stenosis. There is mild regurgitation. Tricuspid valve: The leaflets are normal thickness. There is no evidence of stenosis. There is mild-moderate regurgitation. Pulmonic valve: The leaflets are normal thickness. There is no evidence of stenosis. There is moderate regurgitation. Aorta: Ascending aorta: The ascending aorta is appears normal. The aortic root appears normal. The aortic arch appears normal. Pericardium: A prominent pericardial fat pad is present. There is no significant pericardial effusion. Pulmonary arteries: The main pulmonary artery is normal-sized. Systolic pressure is within the normal range. Systemic veins: Inferior vena cava: The vessel is normal in size. There is (>= 50%) respiratory change in the IVC dimension. Measurements Left ventricle Value Ref Aortic valve continued Value Ref ERVIN, LAX (L) 3.1 cm 3.8 - 5.2 VTI, S 24.0 cm ----- ESD, LAX (L) 2.1 cm 2.2 - 3.5 Mean grad, S 2.0 mm Hg ----- FS, LAX 32 % 27 - 45 Peak grad, S 5.0 mm Hg ----- PW, ED, LAX 0.9 cm 0.6 - 0.9 LVOT/AV, VTI ratio 0.58 ----- FS 32 % 27 - 45 MILTON, VTI 1.83 cm^2 ----- PW, ED 0.9 cm 0.6 - 0.9 MILTON, Vmax 1.62 cm^2 ----- E', lat dasia, TDI (L) 6.6 cm/sec >=10.0 AR peak v 3.43 m/sec - ---- E/e', lat dasia, 17 AR PHT 613 ms ---- - TDI AR peak grad 47 mm Hg ----- E', med dasia, TDI (L) 4.4 cm/sec >=7.0 E/e', med dasia, 26 Mitral valve Value Ref TDI Peak E 1.15 m/sec ----- E', avg, TDI 5.5 cm/sec Peak A 0.39 m/sec ---- - E/e', avg, TDI (H) 21 <=14 Decel time 250 ms - ---- PHT 128 ms ----- LVOT Value Ref Mean grad, D 2.0 mm Hg ----- Diam, S 2.00 cm Peak grad, D 8.0 mm Hg ----- Area 3.1 cm^2 Peak E/A ratio 3 ----- Peak mike, S 0.57 m/sec MVA, PHT 1.7 cm^2 ----- VTI, S 14.0 cm Mean grad, S 1 mm Hg Pulmonic valve Value Ref SV 45 ml Peak v, S 1.17 m/sec ----- SV/bsa 28 ml/m^2 Peak grad, S 5.0 mm Hg ----- RI v, ED 0.86 m/sec ----- Ventricular septum Value Ref IVS, ED (H) 1.1 cm 0.6 - 0.9 Tricuspid valve Value Ref TR peak v 2.52 m/sec <=2.8 Right ventricle Value Ref Peak RV-RA grad, S 25 mm Hg ----- ERVIN, LAX 2.9 cm ERVIN minor ax, A4C (H) 4.8 cm 1.9 - 3.5 Aortic root Value Ref mid Root diam 3.0 cm <3.8 Pressure, S 28 mm Hg Ascending aorta Value Ref Left atrium Value Ref AAo AP diam, S 3.0 cm ----- AP dim, ES 3.60 cm 2.70 - 3.80 Aortic arch Value Ref ML dim, A4C 5.3 cm Arch diam 2.3 cm ----- SI dim, A4C 6.7 cm Vol/bsa, ES, 1-p (H) 82 ml/m^2 11 - 40 Decending aorta Value Ref A4C Kristal peak mike 0.53 m/sec ----- Vol/bsa, ES, A/L (H) 88 ml/m^2 16 - 34 Pulmonary artery Value Ref Right atrium Value Ref Pressure, S 23.0 mm Hg ----- SI dim, ES (H) 5.4 cm 3.4 - 5.3 ML dim, ES, A4C 4.2 cm 2.6 - 4.4 Inferior vena cava Value Ref SI dim, ES, A4C (H) 5.4 cm 3.4 - 5.3 Diam 1.6 cm ----- Estimated RAP 3 mm Hg Aortic valve Value Ref Dasia diam, ED 2.0 cm Peak v, S 1.1 m/sec Legend: (L) and (H) eber values outside specified reference range. Prepared and electronically signed by Yonny Cline MD 07/26/2019 11:30
--- NOTE | 2019-07-26 16:41 | PN ---
Subjective Date of Service: 07/26/19 Interval History: Patient seen and examined. No acute overnight events. Patient states she is feeling well. No complaints of weakness, no dizziness, no blurry vision or other deficits. Denies chest pain, no SOB. Family at bedside. Objective Active Medications: Acetaminophen (Tylenol Tab*) 650 mg PO Q4H PRN PRN Reason: MILD PAIN or TEMP > 100.4 Last Admin: 07/24/19 17:05 Dose: 650 mg Atorvastatin Calcium (Lipitor*) 80 mg PO 2100 [facility] Last Admin: 07/25/19 21:45 Dose: 80 mg Bupropion HCl (Bupropion Xl*) 300 mg PO DAILY [facility] Last Admin: 07/26/19 08:39 Dose: 300 mg Calcium Carbonate (Calcium Carbonate Tab*) 625 mg PO DAILY [facility] Last Admin: 07/26/19 08:40 Dose: 625 mg Donepezil HCl (Aricept Tab*) 10 mg PO BEDTIME [facility] Last Admin: 07/25/19 21:45 Dose: 10 mg Folic Acid (Folvite Tab*) 1 mg PO DAILY [facility] Last Admin: 07/26/19 08:40 Dose: 1 mg Metoprolol Succinate (Toprol Xl Tab*) 25 mg PO BEDTIME [facility] Last Admin: 07/25/19 22:43 Dose: 25 mg Metoprolol Succinate (Toprol Xl Tab*) 50 mg PO QAM [facility] Last Admin: 07/26/19 08:40 Dose: 50 mg Nystatin (Nystatin Top Powder*) 1 applic TOPICAL BID [facility] Last Admin: 07/26/19 08:41 Dose: 1 powder Pantoprazole Sodium (Protonix Tab*) 40 mg PO DAILY [facility] Last Admin: 07/26/19 08:39 Dose: 40 mg Warfarin Sodium (Coumadin Tab(*)) 1.25 mg PO Q2D@1700 [facility]; Protocol Warfarin Sodium (Coumadin Tab(*)) 2.5 mg PO Q2D@1700 [facility]; Protocol Vital Signs - 8 hr 07/26/19 07/26/19 11:15 15:15 Temperature 97.6 F 98.4 F Pulse Rate 66 68 Respiratory 20 16 Rate Blood Pressure 102/52 122/60 (mmHg) O2 Sat by Pulse 99 100 Oximetry Oxygen Devices in Use Now: None Appearance: alert, NAD Eyes: No Scleral Icterus, PERRLA Ears/Nose/Mouth/Throat: NL Teeth, Lips, Gums, Mucous Membranes Moist Neck: NL Appearance and Movements; NL JVP Respiratory: Symmetrical Chest Expansion and Respiratory Effort, Clear to Auscultation Cardiovascular: NL Sounds; No Murmurs; No JVD, RRR Abdominal: NL Sounds; No Tenderness; No Distention Extremities: No Edema, No Clubbing, Cyanosis Skin: No Rash or Ulcers Neurological: Alert and Oriented x 3 Nutrition: Taking PO's Result Diagrams: 07/26/19 05:57 07/26/19 05:57 Diagnostic Imaging: Patient Name: RAÚL LEO Medical Record#: [id number] Ordering Physician: Donte Cabrera MD Acct.#: [id number] : 1930 Age: 88 Sex: F Location: EMERGENCY DEPARTMENT Exam Date: 07/24/191026 ADM Status: PRE ER Order Information: CT BRAIN WO Accession Number: [id number] CPT: 65704 Indication: Stroke. CT of the brain performed without IV contrast. Comparison is made with previous exam dated June 29, 2018. Ventricular structures are midline. No midline shift is noted. Central and cortical atrophy is noted. Chronic ischemic White matter change is noted. There is no evidence of intracranial mass or hemorrhage. IMPRESSION: Atrophy. Chronic ischemic White matter change. No intracranial mass or hemorrhage is noted. Overall no changes noted since June 29, 2018. Dr. Cabrera was notified of the results at 10:45 AM. Patient Name: RAÚL LEO Medical Record#: [id number] Ordering Physician: Donte Cabrera MD Acct.#: [id number] : 1930 Age: 88 Sex: F Location: EMERGENCY DEPARTMENT Exam Date: 07/24/191026 ADM Status: PRE ER Order Information: CTA HEAD/NECK Accession Number: [id number] CPT: 75396 Indication: Stroke. Left-sided weakness and facial droop. Contrast: Administered 80.1 ml of VISAPAQUE 320 mg/ml CTA of the neck and head was performed after IV contrast administration. Coronal and sagittal reconstructed images were obtained. Atherosclerotic aorta is noted. The origins of the great vessels including the innominate artery, right and left common carotid arteries are unremarkable. Minimal plaque is noted in the right and left common carotid arteries. At the right carotid bulb. Calcific plaque with approximately 70 % stenosis of the right internal carotid artery. The right internal carotid artery demonstrates no evidence of carotid artery dissection and is of normal caliber throughout the neck. The left carotid bulb demonstrates minimal plaque with approximately 50% stenosis of the origin of the left internal carotid artery. No evidence of aortic dissection is noted. Both vertebral arteries are patent with dominant left vertebral artery. Basilar artery is patent. Atherosclerosis of the intracavernous portion of the internal carotid arteries are noted. The anterior and middle cerebral arteries are patent. No aneurysmal dilatation or branch occlusion is noted. Posterior cerebral arteries are unremarkable. IMPRESSION: Atherosclerosis at the carotid bulb bilaterally. Likely 70% stenosis of the right internal carotid artery due to dense calcific plaque is noted. No evidence of carotid artery dissection is noted. Approximately 50% stenosis of the origin of the left internal carotid artery is noted. Dense calcific plaque is noted. No evidence of left internal carotid artery dissection is noted. Atherosclerosis of the intracavernous portions of the internal carotid arteries bilaterally. No definite branch occlusion or aneurysmal dilatation is noted. Dominant left vertebral artery. The intracranial circulation demonstrates no branch occlusion or aneurysmal dilatation of the intracranial vessels. Assess/Plan/Problems-Billing Assessment: 88yof PMHx AF, GERD, anxiety presents with L sided weakness, facial asymmetry, dysarthria. - Patient Problems (1) Left-sided weakness Code(s): R53.1 - WEAKNESS SNOMED Code(s): 278391186 Comment: - Presented with L weakness, facial asymmetry, dysarthria - Improved; pt with slight residual LLE weakness yesterday, negligible today - PT/OT - CT brain with no acute changes - CTA head, neck: 70% stenosis R int carotid, 50% L int carotid stenosis; no branch occlusion in intracranial circulation - Neurology consult appreciated, pending additional recommendations - ECHO as above, negative bubble study, MRI pending - Continue statin (2) Afib Code(s): I48.91 - UNSPECIFIED ATRIAL FIBRILLATION SNOMED Code(s): 70532280 Comment: - Continue metoprolol 50 a.m., 25 p.m. - Continue coumadin (3) DVT prophylaxis Code(s): XVL5388 - SNOMED Code(s): 665683324 Comment: - Continue coumadin (4) DNR (do not resuscitate) Comment: - MOLST on file Status and Disposition: Inpatient. Discharge when stable, STR vs home with VNS.
[2019-07-26] MEDS ORDERED: Warfarin TAB(*) 2.5 MG PO SCH (17:00)
[2019-07-26] MEDS: Donepezil TAB* 5 MG PO SCH (22:23)
[2019-07-26] MEDS: Metoprolol Succinate XL TAB* 25 MG PO SCH (22:24)
[2019-07-26] MEDS: Atorvastatin* 80 MG TAB PO SCH (22:24)
[2019-07-27] MEDS: Pantoprazole TAB * 40 MG TAB PO SCH (08:49)
[2019-07-27] MEDS: Calcium Carbonate TAB* 1250 MG (CALCIUM 500 MG) PO SCH (08:49)
[2019-07-27] MEDS: Folic Acid TAB* 1 MG PO SCH (08:49)
[2019-07-27] MEDS: BuPROPion XL* 300 MG TAB.XL PO SCH (08:49)
[2019-07-27] MEDS: Metoprolol Succinate XL TAB* 50 MG PO SCH (08:49)
[2019-07-27] MEDS: Nystatin TOP POWDER* 15 GM BTL TOPICAL SCH ×2 (08:51→21:30)
[2019-07-27] MEDS: Cyanocobalamin TAB* 500 MCG PO SCH (12:42)
--- NOTE | 2019-07-27 14:44 | PN ---
Subjective Date of Service: 07/27/19 Interval History: Ms. Francisco is well today. She offers no complaints. She is not sure where she is. Making tangential comments. She has not been up walking. Good appetite. Denies CP, SOB, N/V. No concerns from nursing. Family History: Unchanged from Admission Social History: Unchanged from Admission Past Medical History: Unchanged from Admission Objective Active Medications: Acetaminophen (Tylenol Tab*) 650 mg PO Q4H PRN MILD PAIN or TEMP > 100.4 Atorvastatin Calcium (Lipitor*) 80 mg PO 2100 [facility] Bupropion HCl (Bupropion Xl*) 300 mg PO DAILY [facility] Calcium Carbonate (Calcium Carbonate Tab*) 625 mg PO DAILY [facility] Cyanocobalamin (Vitamin B12 Tab*) 1,000 mcg PO DAILY [facility] Donepezil HCl (Aricept Tab*) 10 mg PO BEDTIME [facility] Folic Acid (Folvite Tab*) 1 mg PO DAILY [facility] Metoprolol Succinate (Toprol Xl Tab*) 25 mg PO BEDTIME [facility] Metoprolol Succinate (Toprol Xl Tab*) 50 mg PO QAM [facility] Nystatin (Nystatin Top Powder*) 1 applic TOPICAL BID [facility] Pantoprazole Sodium (Protonix Tab*) 40 mg PO DAILY [facility] Warfarin Sodium (Coumadin Tab(*)) 1.25 mg PO Q2D@1700 [facility]; Protocol Warfarin Sodium (Coumadin Tab(*)) 2.5 mg PO Q2D@1700 [facility]; Protocol Vital Signs - 8 hr 07/27/19 07/27/19 07/27/19 08:00 08:10 09:01 Temperature 97.9 F Pulse Rate 66 Respiratory 18 18 Rate Blood Pressure 158/63 (mmHg) O2 Sat by Pulse 97 97 Oximetry 07/27/19 12:52 Temperature 98.4 F Pulse Rate 67 Respiratory 20 Rate Blood Pressure 153/72 (mmHg) O2 Sat by Pulse 99 Oximetry Oxygen Devices in Use Now: None Appearance: Elderly female laying in bed in NAD Eyes: No Scleral Icterus Ears/Nose/Mouth/Throat: Mucous Membranes Moist Neck: NL Appearance and Movements; NL JVP, Trachea Midline Respiratory: Symmetrical Chest Expansion and Respiratory Effort, Clear to Auscultation Cardiovascular: NL Sounds; No Murmurs; No JVD Abdominal: NL Sounds; No Tenderness; No Distention Extremities: No Edema Neurological: - - Oriented to self Lines/Tubes/Other Access: Clean, Dry and Intact Peripheral IV Nutrition: Taking PO's Result Diagrams: 07/26/19 05:57 07/26/19 05:57 Assess/Plan/Problems-Billing Assessment: Ms. Francisco is an 88 yo F with PMH of AF, GERD, and anxiety; who presented to the ED with L sided weakness, facial asymmetry, dysarthria. - Patient Problems (1) TIA (transient ischemic attack) Code(s): G45.9 - TRANSIENT CEREBRAL ISCHEMIC ATTACK, UNSPECIFIED Comment: - Presenting with left sided weakness, now resolved - Echo shows negative bubble study - MRI brain unremarkable - Appreciate Neuro consult; recommends continuing Coumadin and lipid control - Continue Coumadin, atorvastatin (2) Anemia Code(s): D64.9 - ANEMIA, UNSPECIFIED Comment: - With macrocytosis - Vitamin B12 level borderline low - Start vitamin B12 (3) Afib Code(s): I48.91 - UNSPECIFIED ATRIAL FIBRILLATION Comment: - Continue metoprolol, Coumadin (4) Dementia Code(s): F03.90 - UNSPECIFIED DEMENTIA WITHOUT BEHAVIORAL DISTURBANCE Comment : - Supportive care (5) GERD (gastroesophageal reflux disease) Code(s): K21.9 - GASTRO-ESOPHAGEAL REFLUX DISEASE WITHOUT ESOPHAGITIS Comment : - Continue pantoprazole (6) DVT prophylaxis Comment: - Coumadin (7) DNR (do not resuscitate) Comment: Status and Disposition: Inpatient. Anticipate d/c to SNF when bed available. PMRU eval pending. Attending: Tonia Barajas
[2019-07-27] MEDS ORDERED: Warfarin TAB(*) 2.5 MG PO SCH (17:00)
[2019-07-27] MEDS: Metoprolol Succinate XL TAB* 25 MG PO SCH (21:30)
[2019-07-27] MEDS: Atorvastatin* 80 MG TAB PO SCH (21:30)
[2019-07-27] MEDS: Donepezil TAB* 5 MG PO SCH (21:30)
[2019-07-28 05:50] LABS: INR 1.27 (0.82-1.09)
[2019-07-28] MEDS: Metoprolol Succinate XL TAB* 50 MG PO SCH (09:43)
[2019-07-28] MEDS: BuPROPion XL* 300 MG TAB.XL PO SCH (09:43)
[2019-07-28] MEDS: Folic Acid TAB* 1 MG PO SCH (09:44)
[2019-07-28] MEDS: Pantoprazole TAB * 40 MG TAB PO SCH (09:44)
[2019-07-28] MEDS: Calcium Carbonate TAB* 1250 MG (CALCIUM 500 MG) PO SCH (09:44)
[2019-07-28] MEDS: Nystatin TOP POWDER* 15 GM BTL TOPICAL SCH ×2 (09:45→21:24)
[2019-07-28] MEDS: Cyanocobalamin TAB* 500 MCG PO SCH (09:45)
--- NOTE | 2019-07-28 12:29 | DS ---
CC: Dr. Mauri Ryan; Dr. Jace Gerard* DISCHARGE SUMMARY: DATE OF ADMISSION: 07/24/19 DATE OF DISCHARGE: 07/28/19 PRIMARY CARE PROVIDER: Dr. Mauri Ryan. ATTENDING PHYSICIAN: Dr. Tonia Barajas* (dictated by Chantel Finch NP). PRIMARY DIAGNOSES: 1. Transient ischemic attack. 2. Anemia, macrocytic. SECONDARY DIAGNOSES: 1. Atrial fibrillation. 2. Dementia. 3. Gastroesophageal reflux disease. STUDIES WHILE IN THE HOSPITAL: 1. Brain CT on 07/24/19 reads as atrophy. Chronic ischemic white matter change. No intracranial mass or hemorrhage is noted. Overall, no changes noted since 06/29/18. 2. Chest x-ray on 07/24/19 reads as no active cardiopulmonary disease. 3. EKG on 07/24/19 shows atrial fibrillation with a rate of 75, QTc 484, right bundle-branch block, no ischemic changes. 4. Head CT on 07/24/19 reads as atherosclerosis at the carotid bulb bilaterally. Likely 70% stenosis of the right internal carotid artery due to dense calcific plaque is noted. No evidence of carotid artery dissection is noted. Approximately 50% stenosis of the origin of the left internal carotid artery is noted. Dense calcific plaque is noted. No evidence of left internal carotid artery dissection is noted. Atherosclerosis of the intracavernous portions of the internal carotid arteries bilaterally. No definite branch occlusion or aneurysm dilation is noted. Dominant left vertebral artery. The intracranial circulation demonstrates no branch occlusion or aneurysmal dilation of the intracranial vessels. 5. Transthoracic echocardiogram on 07/26/19 reads as the left ventricular systolic function is normal. The estimated ejection fraction is 55 to 60%. Wall motion is normal and there are no regional wall motion abnormalities. The left atrium is severely dilated. A PFO is not demonstrated by color Doppler or agitated saline contrast. There is [id number] mitral regurgitation. There is no evidence of aortic stenosis. There is mild aortic regurgitation. There is [id number]-[id number]-pfbzkoca tricuspid regurgitation. The ascending aorta appears normal. There is no significant pericardial effusion. Compared to study of , there is no change. 6. Brain MRI on 07/27/19 reads as no acute intracranial abnormality. Moderate chronic small vessel ischemic disease is likely. Moderate cerebral volume loss. HISTORY OF PRESENT ILLNESS AND HOSPITAL COURSE: Ms. Francisco is an 88-year- old female with past medical history of atrial fibrillation, GERD, and anxiety, who presented to the emergency room on 07/24/19 with complaints of left-sided weakness. Please see the history and physical by Radha Hobbs NP, for complete summary of the events leading to this hospitalization. In short, the patient awoke in the morning and developed some nausea. A home health aide entered her home later that morning and found her left side to be flaccid, so she called EMS. The patient was brought into the emergency room and a jazmyne stout was called because of the concern for stroke. Telestroke was initiated with a provider in [place] and she was noted to have an NIH stroke scale of 4 , although no intervention was indicated as the patient was already on anticoagulation. She was thereafter admitted by the hospitalist service. After arriving in the emergency room, the patient's symptoms subsequently resolved. She was monitored on telemetry showing atrial fibrillation, though no arrhythmias. She had a lipid panel which showed triglycerides of 90, total cholesterol of 147, LDL of 94, and HDL of 34. She additionally had an A1c, which was noted to be 5.4. The patient was seen in consultation by Dr. Gerard from Neurology, who felt as though her presentation was [employer] of a transient ischemic attack. He recommended lipid control. She is already appropriately anticoagulated and did have a therapeutic INR at the time of this TIA, so no further anticoagulation or antiplatelet therapy was recommended. He did additionally recommend checking a vitamin B12 level due to some macrocytic anemia that was noted on arrival. The patient's vitamin B12 level was noted to be 247, so borderline low and I did start her on a daily supplement of vitamin B12. The patient has been monitored with neuro checks by nursing and she has had no further neurological deficits, though she is noted to be quite confused at baseline. For that reason, it was determined that it was likely not safe for the patient to return home as she was only oriented to self and had occasional visiting aides. Case management worked with the patient's family to obtain a rehab bed. I would additionally note that the patient did have an elevated lactic acid on arrival, though this was not [employer] of infection and I suspect it was likely just a reactive response. As of today, INR is subtherapeutic at 1.27, so Coumadin will be adjusted accordingly. PHYSICAL EXAMINATION: On exam, the patient reports feeling well. She offers no complaints. She is oriented to self and place this morning, although otherwise quite confused, although she is agreeable and cooperative. On exam, she has no focal neurological deficits. Her heart has an irregular rate and rhythm. There are no murmurs, rubs, or gallops. Lungs are clear to auscultation without rhonchi, wheezes, or rubs. There is no edema. Abdomen is soft, nontender to palpation. Physical exam is otherwise benign. DISCHARGE MEDICATIONS: New Medications: 1. Atorvastatin 80 mg p.o. daily. 2. Vitamin B12 1000 mcg p.o. daily. Changed Medication: 1. Warfarin 3 mg p.o. daily (previously was alternating 2.5 mg and 1.25 mg daily). Continued Medications: 1. Bupropion XL 300 mg p.o. daily. 2. Calcium carbonate 600 mg p.o. daily. 3. Aricept 10 mg p.o. at bedtime. 4. Folic acid 1 mg p.o. daily. 5. Metoprolol succinate 25 mg p.o. at bedtime. 6. Metoprolol succinate 50 mg p.o. in the morning. 7. Omeprazole 40 mg p.o. daily. 8. Acetaminophen 650 mg p.o. q.4 hours p.r.n. fever, pain. 9. Methotrexate 7.5 mg p.o. weekly. 10. PreserVision 1 tab p.o. b.i.d. DISCHARGE PLAN: Ms. Francisco will be discharged to subacute rehab at [place]. Activity will be as tolerated. Diet will be heart healthy. Medications are as noted above. The patient has been started on atorvastatin for lipid control and vitamin B12 supplementation for a borderline low vitamin B12 level. Additionally, I have changed her Coumadin dosing. Again, her INR is subtherapeutic today at 1.27, although was therapeutic on admission to the hospital. She was taking alternating doses at home of 2.5 mg and 1.25 mg daily , so at this point, I would recommend her taking 3 mg daily. She will need to have her INR checked frequently, and I would recommend that this be done daily until she is therapeutic. She can continue her other usual medications as noted above and I have not made any further changes. The patient will need to follow up with a provider at [place]. After discharge, she can continue to follow up with her normal primary care provider. She may also follow up with Dr. Gerard from Neurology, which I would recommend in the next 4 to 6 weeks. The patient should return to the emergency room or nearest hospital for any worsening symptoms, shortness of breath, lightheadedness, dizziness, chest discomfort, high fever or chills, night sweats, loss of consciousness or any other worrisome signs or symptoms. DISCHARGE CONDITION: Stable. DISCHARGE DISPOSITION: [facility], [place]. This is a summarized report of a complex medical history and hospital stay. For further details, please see the entire medical record. TIME SPENT: Approximately 50 minutes was spent on this discharge. CHANTEL FINCH NP [id number]/CPS #: [id number] LEONA
[2019-07-28] MEDS ORDERED: Warfarin TAB(*) 3 MG PO SCH (17:00)
--- NOTE | 2019-07-28 17:25 | PN ---
Subjective Date of Service: 07/28/19 Interval History: Ms. Francisco is feeling fine this morning. She offers no complaints. She was up ambulating with physical therapy earlier in the day. Good appetite. Denies CP , SOB, N/V. No concerns from nursing. Family History: Unchanged from Admission Social History: Unchanged from Admission Past Medical History: Unchanged from Admission Objective Active Medications: Acetaminophen (Tylenol Tab*) 650 mg PO Q4H PRN MILD PAIN or TEMP > 100.4 Atorvastatin Calcium (Lipitor*) 80 mg PO 2100 [facility] Bupropion HCl (Bupropion Xl*) 300 mg PO DAILY [facility] Calcium Carbonate (Calcium Carbonate Tab*) 625 mg PO DAILY [facility] Cyanocobalamin (Vitamin B12 Tab*) 1,000 mcg PO DAILY [facility] Donepezil HCl (Aricept Tab*) 10 mg PO BEDTIME [facility] Folic Acid (Folvite Tab*) 1 mg PO DAILY [facility] Metoprolol Succinate (Toprol Xl Tab*) 25 mg PO BEDTIME [facility] Metoprolol Succinate (Toprol Xl Tab*) 50 mg PO QAM [facility] Nystatin (Nystatin Top Powder*) 1 applic TOPICAL BID [facility] Pantoprazole Sodium (Protonix Tab*) 40 mg PO DAILY [facility] Warfarin Sodium (Coumadin Tab(*)) 3 mg PO DAILY@1700 [facility]; Protocol Vital Signs - 8 hr 07/28/19 11:15 Temperature 98.7 F Pulse Rate 72 Respiratory 18 Rate Blood Pressure 123/97 (mmHg) O2 Sat by Pulse 98 Oximetry Oxygen Devices in Use Now: None Appearance: Elderly female sitting in chair in NAD Eyes: No Scleral Icterus Ears/Nose/Mouth/Throat: Mucous Membranes Moist Neck: NL Appearance and Movements; NL JVP, Trachea Midline Respiratory: Symmetrical Chest Expansion and Respiratory Effort, Clear to Auscultation Cardiovascular: NL Sounds; No Murmurs; No JVD Abdominal: NL Sounds; No Tenderness; No Distention Extremities: No Edema Neurological: - - Oriented to self and place Lines/Tubes/Other Access: Clean, Dry and Intact Peripheral IV Nutrition: Taking PO's Result Diagrams: 07/26/19 05:57 07/26/19 05:57 Assess/Plan/Problems-Billing Assessment: Ms. Francisco is an 88 yo F with PMH of AF, GERD, and anxiety; who presented to the ED with L sided weakness, facial asymmetry, dysarthria. - Patient Problems (1) TIA (transient ischemic attack) Code(s): G45.9 - TRANSIENT CEREBRAL ISCHEMIC ATTACK, UNSPECIFIED Comment: - Presenting with left sided weakness, now resolved - Echo shows negative bubble study - MRI brain unremarkable - Appreciate Neuro consult; recommends continuing Coumadin and lipid control - Continue Coumadin, atorvastatin (2) Anemia Code(s): D64.9 - ANEMIA, UNSPECIFIED Comment: - With macrocytosis - Vitamin B12 level borderline low - Continue vitamin B12 (3) Afib Code(s): I48.91 - UNSPECIFIED ATRIAL FIBRILLATION Comment: - Continue metoprolol, Coumadin (4) Dementia Code(s): F03.90 - UNSPECIFIED DEMENTIA WITHOUT BEHAVIORAL DISTURBANCE Comment : - Supportive care (5) GERD (gastroesophageal reflux disease) Code(s): K21.9 - GASTRO-ESOPHAGEAL REFLUX DISEASE WITHOUT ESOPHAGITIS Comment : - Continue pantoprazole (6) DVT prophylaxis Comment: - Coumadin (7) DNR (do not resuscitate) Comment: Status and Disposition: Inpatient. Patient has a bed offer at [facility], but Case Management has not been able to get in touch with the patient's son to accept the bed. Discharge has been prepared and patient is medically ready for discharge. Attending: Tonia Barajas
[2019-07-28] MEDS: Donepezil TAB* 5 MG PO SCH (21:24)
[2019-07-28] MEDS: Atorvastatin* 80 MG TAB PO SCH (21:24)
[2019-07-28] MEDS: Metoprolol Succinate XL TAB* 25 MG PO SCH (21:24)
[2019-07-28] MEDS ORDERED: Ondansetron INJ* 2 MG/ML VIAL IV PRN (22:55)
[2019-07-29 06:21] LABS: INR 1.44 (0.82-1.09)
[2019-07-29] MEDS: Folic Acid TAB* 1 MG PO SCH (07:59)
[2019-07-29] MEDS: Pantoprazole TAB * 40 MG TAB PO SCH (07:59)
[2019-07-29] MEDS: Calcium Carbonate TAB* 1250 MG (CALCIUM 500 MG) PO SCH (07:59)
[2019-07-29] MEDS: Cyanocobalamin TAB* 500 MCG PO SCH (07:59)
[2019-07-29] MEDS: BuPROPion XL* 300 MG TAB.XL PO SCH (07:59)
[2019-07-29] MEDS: Nystatin TOP POWDER* 15 GM BTL TOPICAL SCH (07:59)
[2019-07-29] MEDS: Metoprolol Succinate XL TAB* 50 MG PO SCH (07:59)
[2019-07-29 08:19] VITALS: BP 104/57
--- NOTE | 2019-07-29 09:35 | PN ---
Progress Note - Progress Note Date of Service: 07/29/19 Note: Time spent on discharge including exam of patient, discussion with patient, nurse, CM, review of EMR and preparation of discharge documents is 50 minutes.
--- NOTE | 2019-07-29 10:03 | TRS ---
CC: Dr. Mauri Ryan* TRANSFER SUMMARY: DATE OF ADMISSION: 07/24/19 DATE OF TRANSFER: 07/29/19 HISTORY: This 88-year-old woman presented with left-sided weakness. She was a [employer] [place]. She had telemedicine consult. Her NIH stroke scale was 4 at that time. It had been 8 earlier. She steadily improved. CT scan of the brain and CTA of the head and neck were done. These were unremarkable. Dr. Gerard consulted on her. She had been on warfarin and possibly for other reasons, she was not a candidate for thrombolytic therapy. Dr. Gerard's opinion was that this was a TIA. The MRI of the brain was unremarkable. 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 The patient has significant memory deficits. A B12 level was done and was in the low normal range. I have asked for a methylmalonic acid level to be done with the next INR, which I suggest should be done on 08/02/19. Her warfarin was held for a few days. I noted it was therapeutic on arrival. She will continue on 3 mg daily and get an INR on 08/12/19. FINAL DIAGNOSES: 1. Transient ischemic attack. 2. Paroxysmal atrial fibrillation. 3. Anemia. 4. Dementia. 5. Gastroesophageal reflux disease. MEDICATIONS ON DISCHARGE: 1. Atorvastatin 80 mg daily. 2. Cyanocobalamin 1000 mcg p.o. daily. 3. Warfarin 3 mg daily at 5 p.m. 4. Folic acid 1 mg daily. 5. Methotrexate 7.5 mg weekly. 6. Metoprolol succinate 25 mg h.s. 7. PreserVision 1 tablet b.i.d. 8. Metoprolol succinate 50 mg daily. 9. Acetaminophen 650 mg every 4 hours p.r.n. 10. Bupropion will be decreased to 150 mg daily. 11. Donepezil 10 mg h.s. 12. Omeprazole 40 mg daily. 13. Calcium carbonate 600 mg daily. CONDITION ON DISCHARGE: Stable. DISPOSITION ON DISCHARGE: Discharged to [facility]. [id number]/[facility] #: [id number] MTDD
[2019-07-30] MEDS ORDERED: BuPROPion XL* 150 MG TAB.XL PO SCH (09:00)
== END 2019-07-29 11:30 | DRG 69 ==
LOC: ED 10:26 → MEDTELE 13:56
PROVIDERS: ADMIT Internal Medicine; ATTEND Internal Medicine
DX: G45.9 Transient cerebral ischemic attack, unspecified (principal); I48.91 Unspecified atrial fibrillation; I10 Essential (primary) hypertension; M19.90 Unspecified osteoarthritis, unspecified site; M81.0 Age-related osteoporosis without current pathological fracture; Z87.891 Personal history of nicotine dependence; R29.708 NIHSS score 8; K21.9 Gastro-esophageal reflux disease without esophagitis; F41.9 Anxiety disorder, unspecified; R11.2 Nausea with vomiting, unspecified; Z66 Do not resuscitate; G31.84 Mild cognitive impairment of uncertain or unknown etiology; F02.80 Dementia in other diseases classified elsewhere, unspecified severity, without behavioral disturbance, psychotic disturbance, mood disturbance, and anxiety; D53.9 Nutritional anemia, unspecified; I65.23 Occlusion and stenosis of bilateral carotid arteries; I45.10 Unspecified right bundle-branch block; I08.3 Combined rheumatic disorders of mitral, aortic and tricuspid valves; R79.1 Abnormal coagulation profile; R74.0 Nonspecific elevation of levels of transaminase and lactic acid dehydrogenase [LDH]; Z82.3 Family history of stroke; Z82.49 Family history of ischemic heart disease and other diseases of the circulatory system; Z88.2 Allergy status to sulfonamides; Z87.11 Personal history of peptic ulcer disease; Z90.49 Acquired absence of other specified parts of digestive tract; Z80.0 Family history of malignant neoplasm of digestive organs; Z88.1 Allergy status to other antibiotic agents; Z83.3 Family history of diabetes mellitus; Z95.818 Presence of other cardiac implants and grafts; Z79.01 Long term (current) use of anticoagulants
CPT/HCPCS: 36415; 70450; 70496; 70498; 70551; 71045; 80048; 80053; 80061; 82607; 83036; 83605; 83735; 84443; 84484; 85025; 85610; 85730; 93005; 93306; 99285; A9270-GY; G8978-GP-CL; G8979-GP-CI; J2405; J3475; Q9967

== ENCOUNTER 2019-08-21 18:32 | Inpatient (IN) | payer MEDICARE ==
--- NOTE | 2019-08-21 18:53 | ED ---
Neurological HPI - HPI Summary HPI Summary: Patient is a 89 y/o F presenting to [facility] via EMS as a code argelia. It is reported that the patient was at dinner with family this evening, when, at 1758 , the patient slumped over in her chair at the table. She is reported to have appeared to have had a syncopal episode. After patient came to, patient was noted to have impaired speech. Patient is on coumadin and is not a TPA candidate as a result. Anurag Sutton was called by EMS and paged on overhead at 1828. EMS arrived at 1829, patient was immediately taken to CT. Radiologist communicated results of CT at 1849. Provider in room at 1850 to evaluate patient , [facility] initiated at 1851. Patient is noted to have left sided weakness on assessment. No speech deficit noted. Home medications and allergies are reviewed. 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" Hx Obtained From: Patient, EMS Onset/Duration: Still Present, Resolved - speech deficit Neurological Deficit Location: LUE, LLE Pain Scale Used: 0-10 Numeric Character: Motor Weakness, Impaired Speech Syncope Context: Witnessed Associated Signs and Symptoms: Positive: Weakness, Impaired Speech - Additional Pertinent History Primary Care Physician: [id number] - Allergy/Home Medications Allergies/Adverse Reactions: Allergies Allergy/AdvReac Type Severity Reaction Status Date / Time sulfamethoxazole Allergy Hives Verified 07/24/19 11:50 [From Bactrim] trimethoprim [From Bactrim] Allergy Hives Verified 07/24/19 11:50 Home Medications: Home Medications BuPROPion XL* [Bupropion XL*] 300 mg PO DAILY 08/21/19 [History Confirmed ] Warfarin TAB(*) [Coumadin TAB(*)] 2.5 mg PO DAILY@1700 08/21/19 [History Confirmed 08/21/19] PMH/Surg Hx/FS Hx/Imm Hx Endocrine/Hematology History: Denies: Hx Diabetes Cardiovascular History: Reports: Hx Atrial Fibrillation, Hx Hypertension, Other Cardiovascular Problems/Disorders - Afib Denies: Hx Angina, Hx Coronary Artery Disease, Hx Hypercholesterolemia, Hx Myocardial Infarction, Hx Peripheral Vascular Disease, Hx Valvular Heart Disease Respiratory History: Denies: Hx Asthma, Hx Chronic Obstructive Pulmonary Disease (COPD) GI History: Reports: Hx Ulcer History: Reports: Other Problems/Disorders - stress incontinence per pt Denies: Hx Dialysis, Hx Renal Disease Musculoskeletal History: Reports: Hx Arthritis, Hx Osteoporosis Sensory History: Reports: Hx Hearing Aid Denies: Hx Contacts or Glasses, Hx Legally Blind, Hx Deafness Opthamlomology History: Denies: Hx Contacts or Glasses, Hx Legally Blind Neurological History: Reports: Hx Dementia - mild dementia, Other Neuro Impairments/Disorders - degenerative disc disease Denies: Hx Seizures Psychiatric History: Denies: Hx Inpatient Treatment - Surgical History Surgery Procedure, Year, and Place: appendectomy. loop recorder - Immunization History Date of Tetanus Vaccine: unknown Infectious Disease History: Denies: Hx of Known/Suspected MRSA - Family History Known Family History: Positive: Cardiac Disease, Diabetes, Other - CVA - Social History Alcohol Use: None Hx Substance Use: No Substance Use Type: Reports: None Smoking Status (MU): Former Smoker Type: Cigarettes Have You Smoked in the Last Year: No Review of Systems Negative: Fever - on vitals, temp is 97.8 F Positive: Weakness - left sided , Syncope, Slurred Speech All Other Systems Reviewed And Are Negative: Yes Physical Exam - Summary Physical Exam Summary: VITAL SIGNS: Reviewed. GENERAL: Patient is a well-developed and nourished female who is lying comfortable in the stretcher. Patient is not in any acute respiratory distress. HEAD AND FACE: No signs of trauma. No ecchymosis, hematomas or skull depressions. No sinus tenderness. EYES: PERRLA, EOMI x 2, No injected conjunctiva, no nystagmus. EARS: Hearing grossly intact. Ear canals and tympanic membranes are within normal limits. MOUTH: Oropharynx within normal limits. NECK: Supple, trachea is midline, no adenopathy, no JVD, no carotid bruit, no c- spine tenderness, neck with full ROM. CHEST: Symmetric, no tenderness at palpation. LUNGS: Clear to auscultation bilaterally. No wheezing or crackles. CVS: Regular rate and rhythm, S1 and S2 present, no murmurs or gallops appreciated. ABDOMEN: Soft, non-tender. No signs of distention. No rebound, no guarding, and no masses palpated. Bowel sounds are normal. EXTREMITIES: FROM in all major joints, no edema, no cyanosis or clubbing. NEURO: GCS 15, NIH 3, see scales for breakdowns. SKIN: Dry and warm. Triage Information Reviewed: Yes Vital Signs On Initial Exam: Initial Vitals Temp Pulse Resp BP Pulse Ox 97.8 F 74 16 106/72 100 08/21/19 18:35 08/21/19 18:35 08/21/19 18:35 08/21/19 18:35 08/21/19 18:35 Vital Signs Reviewed: Yes - [place] Coma Scale Best Eye Response: 4 - Spontaneous Best Motor Response: 6 - Obeys Commands Best Verbal Response: 5 - Oriented Coma Scale Total: 15 Diagnostics - Laboratory Result Diagrams: 08/23/19 06:24 08/23/19 06:24 Lab Statement: Any lab studies that have been ordered have been reviewed, and results considered in the medical decision making process. - Radiology CXR Radiology Interpretation Completed By: ED Physician Summary of Radiographic Findings: No acute process, pending official report. - CT BRAIN CT CT Interpretation Completed By: Radiologist Summary of CT Findings: IMPRESSION: No acute intracranial abnormality. Chronic microvascular ischemic changes. THIS REPORT WAS REVIEWED BY DR. LYNNE - EKG 1845 Cardiac Rate: NL - rate of 77 BPM EKG Rhythm: Sinus Rhythm Summary of EKG Findings: EKG showed NSR with rate of 77 BPM, RBBB, similar to previous EKG done on 07/24/19. This EKG was reviewed and interpreted by ED physician. NIH Scale - NIH Scale Level of Consciousness: Alert/Keenly Responsive Ask Patient the Month and His/Her Age: One Correct/Not Aphasic Ask Pt to Open/Close Eyes and Medical Appliance Maker/Release Non-Paretic Hand: Both Correctly Best Gaze (Only Horizontal Eye Movement): Normal Visual Field Testing: No Visual Loss Facial Paresis-Pt to Smile & Close Eyes or Grimace Symmetry: Normal/Symmetrical Motor Function - Right Arm: No Drift-Holds 10 Seconds Motor Function - Left Arm: Drifts LT 10 seconds Motor Function - Right Leg: No Drift-Holds 10 Seconds Motor Function - Left Leg: Drifts LT 10 seconds Limb Ataxia-Must be out of Proportion to Weakness Present: Absent Sensory (Use Pinprick to Test Arms/Legs/Trunk/Face): Normal Best Language (Describe Picture, Name Items): No Aphasia Dysarthria (Read Several Words): Normal Extinction and Inattention: No Abnormality Total Score: 3 Course/Dx - Course Assessment/Plan: Patient is an 89-year-old female who presents to the emergency department with a chief complaint of having a syncopal episode and afterwards she developed a left-sided weakness. Anurag sutton was called by Dr. Barnes. NIH score is 3. Head CT is negative for an acute interconnected pathology. I discussed my physical exam and findings with Dr. Nguyen neurologist Neto and he recommends no TPA since the patients INR is elevated since the patient is taking Coumadin. He recommends an MRI and admission to the hospitalist. He recommends no CTA since he doesnt think that the patient has a large vessel occlusion. Blood test results without any significant abnormality except for hemoglobin 11.6, creatinine 1.39, glucose 130. At this point I discussed my physical exam and findings with Dr. Chaudhary from the hospital services who accepted the patient for admission. The patient is hemodynamically stable alert and oriented 3. - Diagnoses Provider Diagnoses: CVA (cerebral vascular accident) During the Visit The Following Alert/Code Occurred: Anurag Flyod - Anurag Sutton was called by EMS and paged on overhead at 1828. EMS arrived at 182, patient was immediately taken to CT. Radiologist communicated results of CT at 1849. Provider in room at 1850 to evaluate patient, [facility] initiated at 1851. - Physician Notifications Discussed Care Of Patient With: Tamika Nguyen Time Discussed With Above Provider: 19:04 Instructed by Provider To: Other - 1903 - Patient's case was discussed with stroke neurologist from [place], Dr. Tamika Nguyen. Dr. Nguyen to evaluate the patient via telestroke. 1937 - Dr. Nguyen evaluated the patient. He recommends no TPA since the patients INR is elevated since the patient is taking Coumadin. He recommends an MRI and admission to the hospitalist. He recommends no CTA since he doesnt think that the patient has a large vessel occlusion. 1949 - Patient's case was discussed with Dr. Chaudhary, Dr. Chaudhary accepts for admission. Discharge ED - Sign-Out/Discharge Documenting (check all that apply): Patient Departure - admit Patient Received Moderate/Deep Sedation with Procedure: No - Discharge Plan Condition: Stable Disposition: ADMITTED TO [facility] - Billing Disposition and Condition Condition: STABLE Disposition: Admitted to [facility] - Attestation Statements Document Initiated by Scribe: Yes Documenting Scribe: KIKA BERTRAND Provider For Whom Scribe is Documenting (Include Credential): JAMES LYNNE MD Scribe Attestation: I, KIKA BERTRAND, scribed for JAMES LYNNE MD on 08/23/19 at 1116. Scribe Documentation Reviewed: Yes Provider Attestation: The documentation as recorded by the scribe, KIKA BERTRAND accurately reflects the service I personally performed and the decisions made by me, JAMES LYNNE MD Status of Scribe Document: Viewed
[2019-08-21] MEDS ORDERED: NS 0.9% 1000 ML** 1,000 ML IV ONE (19:03)
[2019-08-21 19:12] LABS: ABS Basophils 0.1 10^3/ul (0-0.2); ABS Lymphocytes 1.1 10^3/ul (1.0-4.8); ABS Monocytes 0.8 10^3/ul (0-0.8); ABS Neutrophils 7.5 10^3/ul (1.5-7.7); Eosinophil % 0.3 %; Hematocrit 36 % (35-47); Hemoglobin 11.6 g/dL (12.0-16.0); Lymphocyte % 11.3 %; Mean Corpuscular HGB Conc 32 g/dL (31-36); Mean Corpuscular Hemoglobin 34 pg (27-31); Mean Corpuscular Volume 104 fL (80-97); Mean Platelet Volume 10.5 fL (7.4-10.4); Platelet Count 224 10^3/uL (150-450); Red Blood Count 3.42 10^6 /uL (3.70-4.87); Red Cell Distribution Width 18 % (10-15); White Blood Count 9.5 10^3/uL (3.5-10.8)
[2019-08-21 19:20] LABS: Activated Partial Thrombo Time 38.1 seconds (26.0-38.0); INR 3.97 (0.82-1.09)
[2019-08-21 19:24] LABS: Albumin 3.8 g/dL (3.2-5.2); CO2 Carbon Dioxide 26 mmol/L (22-32); Calcium 8.9 mg/dL (8.6-10.3); Chloride 101 mmol/L (101-111); Sodium 138 mmol/L (135-145)
[2019-08-21 19:30] LABS: ALT 12 U/L (7-52); Alkaline Phosphatase 44 U/L (34-104); BUN/Creatinine Ratio 9.4 (8-20); Blood Urea Nitrogen 13 mg/dL (6-24); Cholesterol 107 mg/dL; EGFR African American 43.3 (>60); EGFR Non-African American 35.8 (>60); Globulin 3.8 g/dL (2-4); Glucose 130 mg/dL (70-100); HDL Cholesterol 39.5 mg/dL; LDL Cholesterol 51 mg/dL; Total Protein 7.6 g/dL (6.4-8.9); Triglycerides 83 mg/dL
[2019-08-21 19:31] LABS: Troponin I 0.03 ng/mL (<0.04)
--- OUTSIDE RECORDS SUMMARY | 2019-08-21 19:37 | XMS REPORT | Continuity of Care Document ---
:1930 External Reference #:[id number] Author Name Nury Arredondo NP Address [address] [facility] [place] [address] Care Team Providers Name Role Phone [facility] Physical Care Team Information County Program Technician Therapy - Physical Therapy Mis Perry MD - Neurology Care Team Information County Program Technician [phone] Problems Active Problems Provider Date Depressive disorder Mauri Ryan M.D. Onset: 02/09/2008 Backache Mauri Ryan M.D. Onset: 11/05/2011 Atrial fibrillation Mauri Ryan M.D. Onset: 10/28/2013 Osteoporosis Mauri Ryan M.D. Onset: 10/28/2013 Psoriasis with arthropathy Mauri Ryan M.D. 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/2013 Social History Type Date Description Comments Sex Unknown Tobacco Use Start: Unknown Never Smoked Cigarettes ETOH Use Never used alcohol Tobacco Use Start: Unknown Patient has never smoked Smoking Status Reviewed: 06/22/19 Patient has never smoked Allergies, Adverse Reactions, Alerts Active Allergies Reaction Severity Comments Date Bactrim 08/31/2002 Cipro 07/11/2005 codeine Stomach Pain 05/09/2009 Medications Active Medications SIG Qnty Indications Ordering Provider Date Omeprazole 1 by mouth every 30caps Nury Parker 06/22/2019 40mg day FABIÁN Arredondo Capsules Bupropion Take 2 Tablets 60tabs Mauri Ryan, 05/22/2019 Hydrochloride ER (XL) By Mouth Every M.D. Day 150mg Tablets ER 24HR Donepezil HCL 1 by mouth every 90tabs Rayna 03/30/2019 10mg day [place], [employer] Tablets Folic Acid 1 by mouth every 90tabs Levi Delacruz, 05/25/2018 1mg Tablets day M.D. Preservision Areds 2 2 by mouth every 100caps Mauri Ryan, 2017 day M.D. Areds 2 Capsules Methotrexate Take 3 Tablets 36tabs Mauri Ryan, 07/22/2012 2.5mg By Mouth One Day M.D. Tablets A Week Metoprolol Succinate Take 2 Tablets 180tabs Mauri Ryan, 12/06/2010 ER By Mouth Every M.D. 25mg Tablets ER 24HR Morning And Take 1 Tablet By Mouth Every Night Atorvastatin Calcium take 1 tablet at Unknown bedtime by mouth 80mg Tablets Vitamin B-12 one tab by mouth Unknown 1000mcg daily Tablets Warfarin Sodium take 1 tablet by Z79.01 Unknown 2.5mg mouth daily or Tablets as directed I48.0 Medications Administered in Office Medication SIG Qnty Indications Ordering Provider Date Injection Subcutaneous Or Mauri Ryan M.D. 09/13/2016 Intramuscular Injection Injection Subcutaneous Or Mauri Ryan M.D. 03/05/2012 Intramuscular Injection Injection Subcutaneous Or Mauri Ryan M.D. 04/12/2011 Intramuscular Injection Immunizations CPT Code Status Date Vaccine Reaction Lot # [id number] Given 08/17/2019 High-Dose, Influenza Virus [id number] Vacccine-fluzone 65 and older 44490 Given 07/31/2017 High-Dose, Influenza Virus [id number] Vacccine-fluzone 65 and older 33215 Given 09/05/2016 High-Dose, Influenza Virus [id number] Vacccine-fluzone 65 and older 80654 Given 08/17/2015 Influenza Vac, Quadrivalent, [id number] [address] Given 04/13/2015 Pneumococcal Conjugate [id number] Vacc-13 68817 Given 08/05/2014 High-Dose, Influenza Virus [id number] Vacccine-fluzone 65 and older 67858 Given 08/05/2013 DO Not Use Split Influenza Virus Vaccine 70848 Given 08/12/2012 High-Dose, Influenza Virus no reaction noted [id number] Vacccine-fluzone 65 and older 87262 Given 08/02/2010 DO Not Use Split Influenza [id number] Virus Vaccine 87319 Given 01/30/2010 DO Not Use Split Influenza [id number] Virus Vaccine 03853 Given 09/17/2007 DO Not Use Split Influenza Virus Vaccine 01605 Given 10/24/2004 DO Not Use Split Influenza Virus Vaccine 95129 Given 09/09/2003 DO Not Use Split Influenza Virus Vaccine 25236 Given 08/31/2002 Influenza Immunization 55314 Given 08/31/2002 DO Not Use Split Influenza Virus Vaccine 40229 Given 09/07/2001 Influenza Immunization 03344 Given 09/07/2001 DO Not Use Split Influenza Virus Vaccine Vital Signs Date Vital Result Comment 08/17/2019 9:09am BP Systolic 100 mmHg BP Diastolic 64 mmHg Heart Rate 72 /min Body Temperature 98.8 F Respiratory Rate 16 /min Height 58.5 inches 4'10.50" Weight 128.00 lb BMI (Body Mass Index) 26.3 kg/m2 06/22/2019 4:02pm BP Systolic 122 mmHg BP Diastolic 74 mmHg Heart Rate 74 /min Body Temperature 98.6 F Respiratory Rate 17 /min Height 58.5 inches 4'10.50" Weight 133.50 lb BMI (Body Mass Index) 27.4 kg/m2 Results Test Date Facility Test Result H/L Range Note Laboratory test [facility] Inr (Fma) 3.7 High 2.0-3.0 finding 9 (607)- - [place] [facility] Lactic Acid 2.8 mmol/L Critical 0.5-2.0 1 finding 9 high Inr/Protime [facility] [place] 2.41 High 0.82-1.09 2 9 Laboratory test [facility] Partial 35.2 Normal 26.0-38.0 finding 9 Thrombo seconds Time PTT CBC Auto Diff [facility] White Blood 7.9 10^3/uL Normal 3.5-10.8 9 Count Red Blood Count 3.13 10^6/uL Low 3.70-4.87 Hemoglobin 10.7 g/dL Low 12.0-16.0 Hematocrit 32 % Low 35-47 Mean Corpuscular Volume 103 fL High 80-97 Mean Corpuscular Hemoglobin 34 pg High 27-31 Mean Corpuscular HGB Conc 33 g/dL Normal 31-36 Red Cell Distribution Width 19 % High 10-15 Platelet Count 226 10^3/uL Normal 150-450 Mean Platelet Volume 9.5 fL Normal 7.4-10.4 Abs Neutrophils 6.8 10^3/uL Normal 1.5-7.7 Abs Lymphocytes 0.7 10^3/uL Low 1.0-4.8 Abs Monocytes 0.3 10^3/uL Normal 0-0.8 Abs Eosinophils 0.0 10^3/uL Normal 0-0.6 Abs Basophils 0.1 10^3/uL Normal 0-0.2 Abs Nucleated RBC 0.0 10^3/uL Granulocyte % 86.5 % Lymphocyte % 8.9 % Monocyte % 3.4 % Eosinophil % 0.4 % Basophil % 0.8 % Nucleated Red Blood Cells % 0.0 Laboratory test finding 07/24/2019 [facility] [place] 110 mg/dL High 70- 100 3 Glucose Comp Metabolic Panel 07/24/2019 [facility] Sodium 135 mmol/L Normal 135-145 Potassium 4.2 mmol/L Normal 3.5-5.0 Chloride 99 mmol/L Low 101-111 Co2 Carbon Dioxide 29 mmol/L Normal 22-32 Anion Gap 7 mmol/L Normal 2-11 Glucose 128 mg/dL High 70-100 Blood Urea Nitrogen 17 mg/dL Normal 6-24 Creatinine 1.41 mg/dL High 0.51-0.95 BUN/Creatinine Ratio 12.1 Normal 8-20 Calcium 9.0 mg/dL Normal 8.6-10.3 Total Protein 7.0 g/dL Normal 6.4-8.9 Albumin 3.5 g/dL Normal 3.2-5.2 Globulin 3.5 g/dL Normal 2-4 Albumin/Globulin Ratio 1.0 Normal 1-3 Total Bilirubin 0.50 mg/dL Normal 0.2-1.0 Alkaline Phosphatase 44 U/L Normal 34-104 Alt 10 U/L Normal 7-52 Ast 17 U/L Normal 13-39 Egfr Non- 35.3 >60 Egfr 42.7 >60 4 Lipid Profile (Trig/Chol/HDL) 07/24/2019 [facility] Triglycerides 125 mg/dL 5 Cholesterol 176 mg/dL 6 HDL Cholesterol 37.7 mg/dL 7 LDL Cholesterol 113 mg/dL 8 Laboratory test finding 07/24/2019 [facility] Troponin I 0.01 ng/mL <0.04 9 TSH (Thyroid Stim Horm) 4.37 mcIU/mL Normal 0.34-5.60 Inr/Protime 07/20/2019 [facility] Inr 2.95 High 0.82-1.09 10 Inr/Protime 07/12/2019 [facility] Inr 4.87 High 0.82-1.09 11 Inr/Protime 07/05/2019 [facility] Inr 1.85 High 0.82-1.09 12 Inr/Protime 07/01/2019 [facility] Inr 7.13 Critical high 0.82-1.09 13 Inr/Protime 06/25/2019 [facility] Inr 2.16 High 0.82-1.09 14 Laboratory test 06/22/2019 [facility] Inr (Fma) 4.1 High 2.0-3.0 finding (607)- - Inr/Protime 02/25/2019 [facility] Inr 2.81 High 0.77-1.02 1 Critical Result LACT:2.8 Called to BREN at: 11:34:33 by:[id number] Read back by:BREN CARPENTER Severe Sepsis and Septic Shock Management Bundle Measure requires all lactic acids initially measuring >2.0 mmol/L be repeated. 2 Standard intensity warfarin therapeutic range: 2.0-3.0 High intensity warfarin therapeutic range: 2.5-3.5 3 [employer]anger [employer]ter: [id number] 4 Because ethnic data is not always readily available, this report includes an eGFR for both -Americans and non- Americans. The National Kidney Disease Education Program (NKDEP) does not endorse the use of the MDRD equation for patients that are not between the ages of 18 and 70, are , have extremes of body size, muscle mass, or nutritional status, or are non- or non-. According to the National Kidney Foundation, irrespective of diagnosis, the stage of the disease is based on the level of kidney function: Stage Description GFR(mL/min/1.73 m(2)) 1 Kidney damage with normal or decreased GFR 90 2 Kidney damage with mild decrease in GFR 60-89 3 Moderate decrease in GFR 30-59 4 Severe decrease in GFR 15-29 5 Kidney failure <15 (or dialysis) 5 Desirable: <150 Borderline High: 150-199 High: 200-499 Very High: >500 6 Desirable: <200 Borderline High: 200-239 High: >239 7 Low: <40 Desirable: 40-60 High: >60 8 Desirable: <100 Near Optimal: 100-129 Borderline High: 130-159 High: 160-189 Very High: >189 9 Troponin-I testing on Plasma Separator Tubes (PST) has a known false positive rate of 0.20-0.40%. All positive troponins reflex immediately to secondary confirmatory testing. Using the [employer] DxI 800 Access Immunoassay systems, the 99th percentile upper reference limit was demonstrated to be < 0.03 ng/mL. 10 Standard intensity warfarin therapeutic range: 2.0-3.0 High intensity warfarin therapeutic range: 2.5-3.5 11 Standard intensity warfarin therapeutic range: 2.0-3.0 High intensity warfarin therapeutic range: 2.5-3.5 12 Standard intensity warfarin therapeutic range: 2.0-3.0 High intensity warfarin therapeutic range: 2.5-3.5 13 Verbal to [facility] by [id number] at 1035 on 07/01/19. Results read back accurately. Standard intensity warfarin therapeutic range: 2.0-3.0 High intensity warfarin therapeutic range: 2.5-3.5 14 Standard intensity warfarin therapeutic range: 2.0-3.0 High intensity warfarin therapeutic range: 2.5-3.5 Procedures Date Code Description Status 06/22/2019 65528 Finger Or Heel Stick Completed 07/09/2017 [id number] Mammogram Completed 09/23/2016 [id number] Bone Mineral Density Test Completed 05/04/2014 [id number] Mammogram Completed 03/24/2012 [id number] Mammogram Completed 03/20/2011 [id number] Colonoscopy Completed 08/16/2010 [id number] Mammogram Completed 05/17/2009 [id number] Mammogram Completed 05/16/2008 [id number] Mammogram Completed 05/14/2007 [id number] Mammogram Completed 05/14/2006 [id number] Mammogram Completed Medical Devices Description No Information Available Encounters Type Date Location Provider Dx Diagnosis Office Visit 06/22/2019 3:45p Main Office Nury Arredondo NP R11.0 Nausea I48.0 Paroxysmal atrial fibrillation 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 Assessments Date Code Description Provider 08/17/2019 Z23 Encounter for immunization Nury Arredondo NP 08/17/2019 Z79.01 shelter (current) use of anticoagulants Nury Arredondo NP 08/17/2019 I48.0 Paroxysmal atrial fibrillation Nury Arredondo, FABIÁN 08/17/2019 G45.9 Transient cerebral ischemic attack, Nury Arredondo NP unspecified 08/17/2019 Z60.2 Problems related to living alone Nury Arredondo, FABIÁN 06/22/2019 R11.0 Nausea Nury Arredondo, FABIÁN 06/22/2019 I48.0 Paroxysmal atrial fibrillation Nury Arredondo NP 06/22/2019 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 This protects you for the fall, winter and spring. It will decrease the likelihood that you will get the flu. If you are unlucky and get the flu, the symptoms will be less severe.Z79.01 regional intermodal truck driver ( current) use of anticoagulantsComments:Recheck INRI48.0 Paroxysmal atrial fibrillationComments:ozpsypJ00.9 Transient cerebral ischemic attack, unspecifiedComments:had therapeutic INR when TIA happened, no repeated sx since hospitalizationfollow up with Neuro in afew jmgmeO57.2 Problems related to living aloneComments:VNS for PT and INR we need you to get up and moving, the more you lay around, the weaker you will become and more dependent you will be patient doesn't want to be like the "old folks" in her apartment complexAllComments:Medication Management Patient Understands medications he 's taking? Yes No Are there Barriers to Adherence? Yes No Has the patient been asked about herbal supplements and therapies, [facility]? Yes No Care Plan1. Patient has been queried about patient's goals/ preferences and functional/lifestyle goals at relevant visits. If relevant, describe: na2. Treatment goals as explained to the patient: above3. Are there barriers to meeting treatment goals? Yes No If Yes, please describe: comorbid conditions, dementia, polypharmacy, disease process 4. Self- Management goals as described to the patient: Yes NoAs always, we strongly encourage a healthy diet andmaking physical activity a part of your every day life. If you have questions about how or where to start, please contact the office. Functional Status Description No Information Available Mental Status Description No Information Available Referrals Description No Information Available
[2019-08-21 20:03] LABS: Anion Gap 11 mmol/L (2-11)
[2019-08-21] MEDS ORDERED: Acetaminophen TAB* 325 MG PO PRN ×2 (20:37→20:41)
[2019-08-21 20:45] LABS: Potassium Redraw 3.9 mmol/L (3.5-5.0)
[2019-08-21 20:56] LABS: Creatine Kinase 52 U/L (10-223)
[2019-08-21] MEDS ORDERED: levETIRAcetam 500 MG IVPREMIX* 500 MG/100 ML BAG IVPB ONE (21:00)
[2019-08-21] MEDS: Atorvastatin* 80 MG TAB PO SCH (23:04)
[2019-08-21] MEDS: Metoprolol Succinate XL TAB* 25 MG PO SCH (23:04)
--- NOTE | 2019-08-21 23:24 | HP ---
CC: Dr. Ryan; Dr. Washington * HISTORY AND PHYSICAL: DATE OF ADMISSION: 08/21/19 PRIMARY CARE PROVIDER: Dr. Ryan. ATTENDING PHYSICIAN WHILE IN THE HOSPITAL: Dr. Denae Chaudhary * (report dictated by Talon Griffin NP) CHIEF COMPLAINT: 1. Altered mental status. 2. Left-sided weakness. 3. Shaking. HISTORY OF PRESENT ILLNESS: Mrs. Francisco is an 89-year-old female patient who carries a history of AFib, carotid artery stenosis, GERD, anxiety, history of TIA, cataracts, and hyperlipidemia, who about a month ago was here in the hospital with complaints of left-sided weakness and ultimately was diagnosed with a TIA. She underwent further workup at that point and was discharged to [facility] for rehab and then eventually made it back home. Unfortunately, today she was sitting, talking, having a discussion with her aide and the aide noted that the patient started shaking allover and became unresponsive. She would not respond to voice initially. The patient's aide called 911 and as the aide was calling 911, the patient started coming back around. She was talking, but it was nonsensical and slurred. By the time EMS got there, it was noted that left-sided weakness was present and stroke system was activated. The patient came in the ER. Anurag stout was called. It was noted that she did have some left -sided weakness, but she was improving per the aide who had seen her and her speech was getting better. She was not given tPA given the fact that she is on Coumadin and her systems were starting to slowly improve. The patient states that recently she has been feeling under the weather. She has been having some URI symptoms and this morning she was feeling nauseated. Only change in medication is that she was added on atorvastatin. There was concern for possible stroke symptoms. [facility] was consulted and they recommended an MRI. I am awaiting their official report, but because of the concern for stroke or possible seizure, we were asked to evaluate for admission. PAST MEDICAL HISTORY: Significant for: 1. AFib. 2. GERD. 3. Anxiety. 4. TIA. 5. Cataracts. 6. Hyperlipidemia. PAST SURGICAL HISTORY: Significant for: 1. Tonsillectomy. 2. Appendectomy. 3. Cholecystectomy. HOME MEDICATIONS: Include: 1. Methotrexate 7.5 mg weekly. 2. Folic acid 1 mg p.o. weekly. 3. B12 at 1000 mcg p.o. daily. 4. Aricept 10 mg daily. 5. Calcium 600 mg daily. 6. Bupropion 300 mg daily. 7. Lipitor 80 mg daily. 8. Tylenol 650 mg every 4 hours as needed. 9. PreserVision soft gel 2 tabs p.o. daily. 10. Omeprazole 40 mg daily. 11. Toprol-XL 50 mg in the morning, 25 mg at bedtime. 12. Coumadin 2.5 mg daily. ALLERGIES TO MEDICATIONS: Include BACTRIM. FAMILY HISTORY: Significant for mother had a history of diabetes and stomach cancer. Father had a history of stroke. SOCIAL HISTORY: Former smoker. Does not drink alcohol. Surrogate decision maker is her son. REVIEW OF SYSTEMS: There is no documented fever. Denied having any significant weight change. No double vision or ear discharge. No rhinorrhea, no sore throat, no thyroid enlargement. She denied having any chest pain. There is no orthopnea and no nocturnal dyspnea. No abdominal pain. There was nausea and vomiting this morning. No dysuria. No frequency. No seizure. No loss of consciousness. No pruritus. No skin ulcerations. Review of 14 systems completed, all others negative. PHYSICAL EXAMINATION GENERAL: Mrs. Francisco is an 89-year-old female patient. She is sitting in the ED stretcher. She does not appear to be in any acute distress. VITAL SIGNS: Blood pressure 129/81, pulse 78, respirations 16, O2 sat 100%, temperature 97.8. HEENT: Head: Atraumatic, normocephalic. Eyes: EOMs were intact. Sclerae anicteric, not pale. Throat: Oral mucosa appears to be moist. No oropharyngeal erythema. NECK: Supple. LUNGS: Clear to auscultation. No wheezes, rales, or rhonchi. HEART: Sounds S1, S2. She has regular rate and rhythm. No murmurs, rubs, or gallops. ABDOMEN: Soft. It was flat, nontender. Bowel sounds are present. EXTREMITIES: Pulses were 2+ throughout. She moves the upper extremities; she has good 5/5 strength in the right upper extremity and left upper extremity is 4 to 4+. Lower extremities with 5/5 strength at plantar flexion and dorsiflexion. Unfortunately, she has limited range of motion of the left lower extremity because of the pain in her knee. NEUROLOGICAL: Again, difficult exam. She is hard of hearing. There was an underlying component of confusion. She had no facial drooping noted. Her tongue was midline. Her speech was clear. No gaze preference was noted. She did have a drift to the left upper extremity. It was difficult to assess the left lower extremity due to pain. She can lift it off the bed, but does drift in the left lower extremity. She had no drift to the right upper or right lower extremity. Sensation was intact. I did not see any evidence of neglect. At this point, because of the lack of communication, it is difficult to assess peripheral field; however, to confrontation, she does blink her eyes in all 4 quadrants. She had no other focal deficits noted. She is awake and she is alert. She is oriented to herself at this point and to place. SKIN: Was grossly intact. DIAGNOSTIC STUDIES/LAB DATA: Labs: WBC 9.5, RBC 3.42, hemoglobin 11.6, hematocrit 36, platelet count 224. INR of 3.97, PTT of 38.1. Sodium 138, chloride 101, bicarb 26, BUN 13, creatinine 1.39, glucose 130. Lactic 3.6. Total bili is 0.4, AST 18, ALT 12, alk phos 44. CK 52, troponin 0.03. Albumin 3.8. LDL 51. She had a brain CT obtained today, which revealed no acute intracranial abnormality. Chronic microvascular ischemic change. She had an MRI done on 07/27/19 which showed no acute intracranial abnormality, moderate chronic small-vessel ischemic disease likely, moderate cerebral volume loss. CTA of the head and neck from 07/24/19: Atherosclerosis of the carotid bulb bilaterally, likely 70% stenosis of the right internal carotid artery due to dense calcified plaque is noted. No evidence of carotid artery dissection. Approximately 50% stenosis at the origin of the left internal carotid artery is noted. Dense calcified plaque is noted. No evidence of left internal carotid dissection noted. Atherosclerosis of the intracavernous portions of the internal carotid arteries bilaterally. No definite branch occlusion or aneurysm noted. Dominant left vertebral artery. The intracranial circulation demonstrates no branch occlusion or aneurysmal dilation of the intracranial vessels. She had a chest x-ray obtained today, which when I reviewed it I did not appreciate any acute infiltrates noted at this point. No pulmonary edema noted. EKG obtained today does show a right bundle-branch block, but it does appear to be in sinus rhythm. The rate is 77. When we review it to the previous EKG, she was in AFib previously. Right bundle-branch morphology is similar. Old medical records reviewed. ASSESSMENT AND PLAN: Mrs. Francisco is an 89-year-old female patient who comes in to the ED today with complaints of an episode where she was shaking per her aide with residual left-sided weakness. She will be admitted under observation status for: 1. Transient ischemic attack versus seizure. Again, suspicious for a seizure. She had similar deficits previously and prior to this episode, she became unresponsive and was shaking. She certainly does have risk factors for seizure. She is on Wellbutrin. In addition to this, is also noted to be taking donepezil, both of which can lower seizure threshold, so I have held these medications for the time being and I am loading her with Keppra [address] her on seizure precautions. I will try to get an EEG at some point. I will obtain an MRI per [facility] recommendation. I did touch base with Dr. Washington, who will evaluate the patient tomorrow. I would not start aspirin just yet as she is on warfarin and her INR is 3.97. Because she was improving and the fact that she was on Coumadin, she was considered to not be a tPA candidate per [facility]. I am awaiting their official report. We will get an MRI and again, I have ordered neuro checks and she will be placed on telemetry. 2. Atrial fibrillation. Continue meds as prescribed. 3. Gastroesophageal reflux disease. Continue meds as prescribed. 4. Anxiety. Continue meds as prescribed. 5. Cataracts. Follow with her primary. 6. Hyperlipidemia. Continue statin therapy. 7. History of rheumatoid arthritis. Continue meds as prescribed. 8. DVT prophylaxis. She is on warfarin. 9. Code status. She is a DNR. 10. Fluids, electrolytes, and nutrition. She can have a heart-healthy diet pending swallow evaluation. I also did order physical therapy and occupational therapy. TIME SPENT ON ADMISSION: Sixty minutes. Greater than half the time was spent face- to-face with the patient obtaining my history and physical. The other half of the time was spent going over the plan of care with the patient and implementing the plan of care. I discussed the plan of care with my attending, Dr. Chaudhary; she is in agreement. TALON GRIFFIN NP [id number]/[facility] #: [id number] MTDNilsa
[2019-08-22 07:07] LABS: Hematocrit 29 % (35-47); Hemoglobin 9.8 g/dL (12.0-16.0); Mean Corpuscular HGB Conc 34 g/dL (31-36); Mean Corpuscular Hemoglobin 35 pg (27-31); Mean Corpuscular Volume 103 fL (80-97); Mean Platelet Volume 10.2 fL (7.4-10.4); Platelet Count 172 10^3/uL (150-450); Red Cell Distribution Width 18 % (10-15)
[2019-08-22 07:10] LABS: ABS Basophils 0.1 10^3/ul (0-0.2); ABS Eosinophils 0.1 10^3/ul (0-0.6); ABS Lymphocytes 2.2 10^3/ul (1.0-4.8); ABS Monocytes 1.1 10^3/ul (0-0.8); ABS Neutrophils 5.4 10^3/ul (1.5-7.7); Eosinophil % 1.6 %; Lymphocyte % 24.3 %
[2019-08-22 07:16] LABS: INR 4.74 (0.82-1.09)
[2019-08-22 07:29] LABS: BUN/Creatinine Ratio 10.4 (8-20); EGFR African American 48.9 (>60); EGFR Non-African American 40.4 (>60); HDL Cholesterol 34.1 mg/dL; Potassium 3.3 mmol/L (3.5-5.0)
[2019-08-22] MEDS ORDERED: Potassium Chlor TAB* 20 MEQ TAB.ER PO ONE (07:47)
[2019-08-22] MEDS ORDERED: Metoprolol Tartrate IV* 1 MG/ML 5 ML VIAL IV ONE (08:12)
[2019-08-22] MEDS: Pantoprazole TAB * 40 MG TAB PO SCH (08:57)
[2019-08-22] MEDS: Folic Acid TAB* 1 MG PO SCH (08:57)
[2019-08-22] MEDS: Metoprolol Succinate XL TAB* 50 MG PO SCH (08:57)
[2019-08-22] MEDS ORDERED: levETIRAcetam TAB* 500 MG PO SCH (09:00)
[2019-08-22 09:04] LABS: Magnesium 1.3 mg/dL (1.9-2.7)
[2019-08-22] MEDS ORDERED: levETIRAcetam TAB* 500 MG PO ONE (10:44)
--- NOTE | 2019-08-22 12:10 | PN ---
PROGRESS NOTE: DATE: 08/22/19 PATIENT OF: Dr. Ryan and Dr. Griffin. HISTORY: This is an 89-year-old woman who was admitted yesterday and had a telestroke consultation at the [facility]. She had a recent hospitalization and was seen both by Tawanna and Dr. Gerard at that time with transient left-sided weakness with history of atrial fibrillation, on anticoagulation. At that time, she had a nonfocal neurological exam by Dr. Gerard in the hospital and was alert and oriented with poor memory. She had an evaluation that included a CTA that showed 70% to right internal carotid artery and 50% to left internal carotid artery. She had an LDL of 94 and she was anticoagulated because of her AFib and that was continued. Yesterday, while talking to an AV aide, she noticed that she began shaking allover and became unresponsive. The episode began resolving while the aide was calling for 911, but had nonsensical speech and slurring at that point. There was some left-sided weakness and the stroke system was activated and jazmyne stout was called. Again, [facility] was consulted and they recommended an MRI scan, but did not recommend tPA because of a therapeutic INR on Coumadin and no CTA was recommended. She had a low NIH stroke scale of 3. Talon Griffin contacted me because of the shaking and unresponsive episode. We began Keppra as there was a concern that this could have been a seizure. This morning, she had a temporary decrease in her mental status shortly after awakening. She was lethargic and had difficulty keeping both her arms up. This has resolved at this point. PAST MEDICAL HISTORY: Her past history is significant for AFib, GERD, anxiety, TIAs, cataracts, hyperlipidemia. PAST SURGICAL HISTORY: She is status post tonsillectomy, appendectomy, and cholecystectomy. MEDICATIONS: At home include: 1. Methotrexate 7.5 mg weekly. 2. Folic acid 1 mg p.o. daily. 3. B12 at 1000 mcg daily. 4. Aricept 10 mg daily. 5. Calcium 600 mg daily. 6. Bupropion 300 mg daily. 7. Lipitor 80 mg daily. 8. Omeprazole 40 mg daily. 9. Toprol XL 50 in the morning and 25 at bedtime. 10. Coumadin 2.5 daily.9 ALLERGIES: She is allergic to BACTRIM. FAMILY HISTORY: The mother has diabetes and stomach cancer. The father had a history of stroke. SOCIAL HISTORY: She is a former smoker. Does not drink alcohol. REVIEW OF SYSTEMS: Negative in all 14 spheres. PHYSICAL EXAMINATION: On exam, temperature 98.9, pulse 78, respiratory rate 18 , blood pressure 150/60. She is alert, knows her name and that she is in the hospital, but did not remember her age. She had poor memory as documented previously. Her cranial nerves II through XII were normal including visual chance, other than that there was a slight facial asymmetry with decreased nasolabial fold on the right compared to the left. Initially, I felt that there may have been a slight pronator drift on the right, but not the left, but then on repeat this did not confirm. Strength was 5/5. Other than that, it was somewhat limited in the left leg. Reflexes were trace and equal. Sensation was intact to light touch and there was no extinction. Chest: Clear. Cardiovascular: Regular rate and rhythm. Abdomen was soft with positive bowel sounds. DIAGNOSTIC STUDIES: I reviewed her CT scan, which showed diffuse atrophy and white matter disease. Her CTA is as above from earlier this month. Her MRI scan showed moderate chronic small-vessel ischemia and moderate atrophy and that was done on her prior hospitalization from 07/27/19. She had an echo also done on that hospitalization which showed severe left atrial dilatation. Negative bubble study. ASSESSMENT AND PLAN: Rani has had a past history of transient ischemic attack. Her episode of unresponsiveness and shaking that occurred at the onset of this event, I wonder whether she has had a seizure this morning. She woke up and she looked much worse than she did yesterday and then quickly cleared. It is possible that she could have had a seizure at night. Alternatively, she could have had another transient ischemic attack that rapidly cleared. We are repeating a CT scan and I am recommending that we increase her Keppra for now as tolerated from the 250 twice a day that we did yesterday to 250 in the morning and 500 at night. She will get an extra dose of Keppra now of 250 and then go to the 250-500 tomorrow. She will be getting an EEG and Dr. Hawkins will be seeing her tomorrow. Thank you for sharing her case. [id number]/[facility] #: [id number] LEONA
--- NOTE | 2019-08-22 14:58 | PN ---
Subjective Date of Service: 08/22/19 Interval History: Patient seen this morning after reports from nursing stating that she was hard to wake up, concerned about her ability to swallow her medications. Upon assessment, she was arrousable. After helping patient to be repositioned to back , performed NIHS stroke scale with a score of eight. She was drowsy, drift to bilateral upper extremities, left sided asymmetry, weaker left hand grasp and unable to hold up either leg, though limits by knee pain. Disoriented to time. Spoke with Dr. Washington, obtained a repeat CT scan to look for interval changes which was negative. An hour or so later, patient was awake, more responsive, able to keep both arms up without drift and appearing much improved. CTA of head /neck to observe carotids not necessary at this time per Dr. Washington. Family History: Unchanged from Admission Social History: Unchanged from Admission Past Medical History: Unchanged from Admission Objective Active Medications: Acetaminophen (Tylenol Tab*) 650 mg PO Q4H PRN PRN Reason: FEVER/PAIN - MILD Atorvastatin Calcium (Lipitor*) 80 mg PO 2100 [facility] Last Admin: 08/21/19 23:04 Dose: Not Given Folic Acid (Folvite Tab*) 1 mg PO DAILY [facility] Last Admin: 08/22/19 08:57 Dose: 1 mg Levetiracetam (Keppra Tab*) 250 mg PO DAILY [facility] Levetiracetam (Keppra Tab*) 500 mg PO Q24H [facility] Metoprolol Succinate (Toprol Xl Tab*) 50 mg PO QAM [facility] Last Admin: 08/22/19 08:57 Dose: 50 mg Metoprolol Succinate (Toprol Xl Tab*) 25 mg PO BEDTIME [facility] Last Admin: 08/21/19 23:04 Dose: Not Given Nystatin (Nystatin Top Powder*) 1 applic TOPICAL BID RANDY Pantoprazole Sodium (Protonix Tab*) 40 mg PO DAILY [facility] Last Admin: 08/22/19 08:57 Dose: 40 mg Vital Signs - 8 hr 08/22/19 08/22/19 07:58 11:31 Temperature 98.2 F 98.3 F Pulse Rate 100 99 Respiratory 16 18 Rate Blood Pressure 104/43 92/54 (mmHg) O2 Sat by Pulse 96 95 Oximetry Oxygen Devices in Use Now: None Appearance: Drowsy older female resting in bed, no acute distress noted. Eyes: No Scleral Icterus, - - Pupils pinpoint, non-reactive. No gaze palsy or hemianopsia. Ears/Nose/Mouth/Throat: NL Teeth, Lips, Gums, Clear Oropharnyx, Mucous Membranes Moist Neck: NL Appearance and Movements; NL JVP, Trachea Midline Respiratory: Symmetrical Chest Expansion and Respiratory Effort, Clear to Auscultation Cardiovascular: NL Sounds; No Murmurs; No JVD, RRR, No Edema Abdominal: NL Sounds; No Tenderness; No Distention Lymphatic: No Cervical Adenopathy Extremities: No Edema, No Clubbing, Cyanosis Skin: - - Rash to abominal and breast folds Neurological: - - Not oriented to time but oriented to person, place and situation. Lines/Tubes/Other Access: Clean, Dry and Intact Peripheral IV Result Diagrams: 08/22/19 06:59 08/22/19 06:55 Assess/Plan/Problems-Billing Assessment: This is an 89 year old female with a past medical history for previous TIA, afib , and carotid stenosis who presented to the emergency room on 08/21/19 with altered mental status, left sided weakness and shaking. It is looking less likely that it is a stroke and more probably seizure activity. Will get MRI and EEG tomorrow. - Patient Problems (1) Altered mental status Current Visit: Yes Status: Acute Code(s): R41.82 - ALTERED MENTAL STATUS, UNSPECIFIED SNOMED Code(s): 199045237 Comment: -CT brain negative yesterday, NIHSS score of 3 in the ED. -Repeat CT done today to look for interval changes due to NIHSS score of 8. Patient had been unable to raise either bilateral arms or legs, disoriented to time. Deficits mostly resolved in an hour. CT was negative. -MRI and EEG scheduled for tomorrow. [place] deficits due to likely seizures. -Placed on keppra, new to this admission, and was increased today by Dr. Washington. (2) Afib Current Visit: No Status: Acute Code(s): I48.91 - UNSPECIFIED ATRIAL FIBRILLATION SNOMED Code(s): 05986813 Comment: -Currently converting back and forth between sinus rhythm and afib. Rate controlled with metoprolol. ASA and warfarin held due to INR of 4.74. Will recheck INR tomorrow. (3) Electrolyte abnormality Current Visit: No Status: Acute Code(s): E87.8 - OTH DISORDERS OF ELECTROLYTE AND FLUID BALANCE, NEC SNOMED Code(s): 763305746 Comment: -Potassium of 3.3, asymptomatic. Ordered 20mEq po x 1. -Magnesium of 1.3, patient going in and out of afib. Two runs of IV magnesium 2mg ordered. (4) GERD (gastroesophageal reflux disease) Current Visit: No Status: Chronic Code(s): K21.9 - GASTRO-ESOPHAGEAL REFLUX DISEASE WITHOUT ESOPHAGITIS SNOMED Code(s): 781741566 Comment: - Continue pantoprazole (5) Anxiety Current Visit: Yes Status: Chronic Code(s): F41.9 - ANXIETY DISORDER, UNSPECIFIED SNOMED Code(s): 98469574 Comment: Wellbutrin held due to lowered seizure threshhold. (6) Small vessel disease Current Visit: Yes Status: Chronic Code(s): I73.9 - PERIPHERAL VASCULAR DISEASE, UNSPECIFIED SNOMED Code(s): 18128620 Comment: Held donepezil due to lowered seizure threshhold. (7) Hyperlipidemia Current Visit: Yes Status: Chronic Code(s): E78.5 - HYPERLIPIDEMIA, UNSPECIFIED SNOMED Code(s): 73139058 Comment: Continue atorvastatin. (8) DNR (do not resuscitate) Current Visit: Yes Status: Acute (9) DVT prophylaxis Current Visit: No Status: Acute Code(s): ARJ4101 - SNOMED Code(s): 023041397 Comment: -SCD's. Held coumadin and ASA due to elevated INR. Status and Disposition: Disposition: Inpatient Condition: Guarded. Counseling and/or Coordination of Care Minutes: 60 minutes spent on patient with more than half as face to face. Attending: Marvin Go
[2019-08-22] MEDS: Magnesium Sulfate 2 GM IV* 2 GM/50 ML BAG IVPB SCH ×2 (16:26→17:56)
[2019-08-22] MEDS ORDERED: NS 0.9% 500 ML* 500 ML IV ONE ×2 (19:55→21:57)
[2019-08-22 20:15] LABS: ABS Basophils 0.1 10^3/ul (0-0.2); ABS Eosinophils 0.4 10^3/ul (0-0.6); ABS Lymphocytes 2.2 10^3/ul (1.0-4.8); ABS Monocytes 0.7 10^3/ul (0-0.8); Eosinophil % 3.9 %; Hematocrit 30 % (35-47); Hemoglobin 9.9 g/dL (12.0-16.0); Lymphocyte % 23.5 %; Mean Corpuscular HGB Conc 34 g/dL (31-36); Mean Corpuscular Hemoglobin 35 pg (27-31); Mean Corpuscular Volume 104 fL (80-97); Mean Platelet Volume 9.9 fL (7.4-10.4); Nucleated Red Blood Cells % 0.1; Platelet Count 176 10^3/uL (150-450); Red Blood Count 2.84 10^6 /uL (3.70-4.87); Red Cell Distribution Width 17 % (10-15); White Blood Count 9.5 10^3/uL (3.5-10.8)
[2019-08-22] MEDS ORDERED: NS 0.9% 1000 ML** 1,000 ML IV SCH (22:00)
--- NOTE | 2019-08-22 22:00 | PN ---
Progress Note - Progress Note Date of Service: 08/22/19 Note: Pt's SBP reported at 95. will give IVF 500 ml bolus, start NS at 100 ml/H, stop Lopressor
[2019-08-22] MEDS: Atorvastatin* 80 MG TAB PO SCH (22:17)
[2019-08-22] MEDS: Nystatin TOP POWDER* 15 GM BTL TOPICAL SCH (22:17)
[2019-08-23] MEDS: Metoprolol Succinate XL TAB* 25 MG PO SCH (02:01)
[2019-08-23 06:54] LABS: Hematocrit 27 % (35-47); Hemoglobin 9.2 g/dL (12.0-16.0); Mean Corpuscular HGB Conc 34 g/dL (31-36); Mean Corpuscular Hemoglobin 35 pg (27-31); Mean Corpuscular Volume 104 fL (80-97); Mean Platelet Volume 10.4 fL (7.4-10.4); Platelet Count 162 10^3/uL (150-450); Red Blood Count 2.61 10^6 /uL (3.70-4.87); Red Cell Distribution Width 18 % (10-15); White Blood Count 7.9 10^3/uL (3.5-10.8)
[2019-08-23 06:58] LABS: INR 3.28 (0.82-1.09)
[2019-08-23 07:10] LABS: BUN/Creatinine Ratio 8.6 (8-20); Calcium 7.4 mg/dL (8.6-10.3); EGFR African American 53.3 (>60); EGFR Non-African American 44.1 (>60); Magnesium 2.5 mg/dL (1.9-2.7); Potassium 3.5 mmol/L (3.5-5.0)
--- NOTE | 2019-08-23 09:37 | PN ---
Subjective Date of Service: 08/23/19 Length of Stay: 2 Days Neurology is following for suspected seizures. Interval History: Review of the medical history: Mrs. Francisco is an 89-year-old female who has history of dementia who was recently hospitalized for transient left arm weakness the end of June 2019. She was discharged with the diagnosis of TIA. Coumadin was continued and atorvastatin increased to 80 mg nightly. She went to rehabilitation for a short term and then discharged home. I spoke with Yevtte today (patient's aide). Yvette cared for the patient from 9 -11 and 5-6 pm on 08/20/2019. She witnessed the patient to have two episodes of vomiting on the morning of 08/20/2019. This was at 1755 on 08/20/2019. She came back to see the patient that evening and that's when the patient had seizure-like activity. She was seated when the seizures began. The episode lasted for 1 minute. Subsequently, she had confusion and left sided transient weakness that lasted 15 minutes. Yvette described the patient as having slurred speech. The patient was taking Wellbutrin, Aricept, and was found to have hypomagnesemia. She was started on levetiracetam 250/500 mg. EEG and MRI w/wo contrast are pending. MRI brain without contrast was completed on 07/27/2019: No area of restricted diffusion. She has increase white matter changes and atrophy involving the right>left hemisphere. Today, the patient is awake and cooperative. She feels tired and wants to go to sleep. There has been no seizure like activity. She was hypotensive last night, requiring IV fluids. She denied any headache, visual disturbance, focal weakness or paresthesia. Review of Systems: Denied CP, SOB, or palpitations. Family History: Unchanged from Admission Social History: Unchanged from Admission Past Medical History: Unchanged from Admission Objective Active Medications: Acetaminophen (Tylenol Tab*) 650 mg PO Q4H PRN PRN Reason: FEVER/PAIN - MILD Atorvastatin Calcium (Lipitor*) 80 mg PO 2100 [facility] Last Admin: 08/22/19 22:17 Dose: 80 mg Folic Acid (Folvite Tab*) 1 mg PO DAILY [facility] Last Admin: 08/22/19 08:57 Dose: 1 mg Sodium Chloride (Ns 0.9% 1000 Ml) 1,000 mls @ 100 mls/hr IV PER RATE [facility] Last Admin: 08/22/19 23:48 Dose: 100 mls/hr Levetiracetam (Keppra Tab*) 250 mg PO DAILY [facility] Levetiracetam (Keppra Tab*) 500 mg PO Q24H [facility] Metoprolol Succinate (Toprol Xl Tab*) 50 mg PO QAM [facility] Last Admin: 08/22/19 08:57 Dose: 50 mg Nystatin (Nystatin Top Powder*) 1 applic TOPICAL BID [facility] Last Admin: 08/22/19 22:17 Dose: 1 applic Pantoprazole Sodium (Protonix Tab*) 40 mg PO DAILY [facility] Last Admin: 08/22/19 08:57 Dose: 40 mg Vital Signs 08/22/19 08/22/19 08/22/19 11:31 15:26 19:15 Temperature 98.3 F 97.2 F 97.5 F Pulse Rate 99 74 70 Respiratory 18 16 18 Rate Blood Pressure 92/54 98/52 86/48 (mmHg) O2 Sat by Pulse 95 96 95 Oximetry 08/22/19 08/22/19 08/23/19 20:00 21:23 00:01 Temperature 97.6 F Pulse Rate 68 Respiratory 16 18 Rate Blood Pressure 92/46 98/52 (mmHg) O2 Sat by Pulse 95 Oximetry 08/23/19 08/23/19 03:26 07:45 Temperature 97.5 F 97.6 F Pulse Rate 69 66 Respiratory 18 20 Rate Blood Pressure 98/56 105/50 (mmHg) O2 Sat by Pulse 93 98 Oximetry Intake and Output Last 24 Hours 08/21/19 08/22/19 08/23/19 08/24/19 06:59 06:59 06:59 06:59 Intake Total 800 1309 Output Total 0 Balance 800 1309 Weight 131 lb Intake: IV Fluids 800 1069 Oral 0 240 Output: Urine 0 Oxygen Devices in Use Now: None Neurology Exam: General: Orthostatic vitals: 0910: 120/46 P:64, 09:12: 126/62 P:70, 09:14: 124/43, P: 75 Frail and ill appearing female in no acute distress. Very pleasant. HEENT: Normocephelic/atraumatic, sclera anicteric, mucous membranes moist Neck: Supple Chest: Clear to auscultation bilaterally Cardiovascular: Regular rate and rhythm without murmurs, rubs, gallops Extremities: No clubbing, cyanosis, or edema Neurological Findings: Awake, alert, and oriented to person, place, and time. She thought it was 1919 , but then quickly corrected herself and noted it's 2019. She knew the president. Speech: fluent without dysarthria, repetition intact Cranial Nerve: PERRL, EOM intact, VFF, no nystagmus, face symmetric bilaterally , facial sensation intact, hearing intact to finger rub bilaterally, palate elevates symmetrically, tongue midline, SCM and Trapezius s/s. Motor: s/s throughout, proximal and distal extremities x4 tone/bulk normal. She is antigravity on all 4 limbs. Sensation: intact to LT/PP bilaterally upper and lower extremities Deep Tendon Reflex: trace on the right upper and 2+ on the left upper (biceps, triceps, and brachioradialis). Trace in the lower extremities bilaterally. Absent at the ankles. Finger to nose, rapid alternating movements intact without tremor, no dysdiadochokinesia Gait: stooped hunched posture. No ataxia. Result Diagrams: 08/23/19 06:24 08/23/19 06:24 Assessment/Plan Ms. Rani Francisco is an 89-year-old female with a significant PMH of atrial fibrillation on coumadin, dementia on Aricept, and recent history of reported TIA in the setting of therapeutic INR (coumadin therapy), who presented on 08/20 with symptoms of generalized seizure-like activity followed but confusion and left hemiparesis. 1. Seizure-like activity with transient left hemiparesis- - Likely seizures with Gustavo's paralysis in a patient with history of dementia, extensive white matter disease that's asymmetric involving the R>L cortex, Wellbutrin and Aricept therapy (both can lower the seizure threshold), and hypomagnesemia. She may have had a second episode yesterday morning. - She is tolerating levetiracetam with no episode of agitation or irritability - Lactic acidosis on presentation can also be suggestive of seizures - other differential diagnosis like convulsive syncope is less likely since the patient was sitting during the event. Orthostatic vitals were normal today. Recommendations: - Obtain an MRI brain with and without contrast, seizure protocol - Obtain an EEG to look for epileptiform discharges - Magnesium was given and her level is normal now. - Levetiracetam level tonight - Continue levetiracetam 250/500 mg - Discussed seizure precautions - She does not drive - Will need close outpatient follow-up in the future 2. History of TIA- not sure if this was a seizure initially and NOT a TIA in late June. Continue coumadin and statin therapy. 3. Dementia- discontinue Aricept. Can start memantine as an outpatient. 4. Low normal B12 level- Continue cyanocobalamin 1,000 mcg daily. 5. Reflex asymmetry without neck pain or incontinence- Likely due to the atrophy involving the right>left hemisphere. Other d/d include new stroke or cervical spine disease. Hold off on further testing as in-patient. Follow-up with [facility] as an outpatient.
[2019-08-23] MEDS: Metoprolol Succinate XL TAB* 50 MG PO SCH (09:55)
[2019-08-23] MEDS: levETIRAcetam TAB* 500 MG PO SCH (09:56)
[2019-08-23] MEDS: Folic Acid TAB* 1 MG PO SCH (09:56)
[2019-08-23] MEDS: Pantoprazole TAB * 40 MG TAB PO SCH (09:56)
[2019-08-23] MEDS: Nystatin TOP POWDER* 15 GM BTL TOPICAL SCH ×2 (10:00→21:57)
--- NOTE | 2019-08-23 18:18 | PN ---
Subjective Date of Service: 08/23/19 Interval History: Feeling better today.alert oriented.Able to move her extremities. Denies any complaints Family History: Unchanged from Admission Social History: Unchanged from Admission Past Medical History: Unchanged from Admission Objective Active Medications: Acetaminophen (Tylenol Tab*) 650 mg PO Q4H PRN PRN Reason: FEVER/PAIN - MILD Atorvastatin Calcium (Lipitor*) 80 mg PO 2100 [facility] Last Admin: 08/22/19 22:17 Dose: 80 mg Folic Acid (Folvite Tab*) 1 mg PO DAILY [facility] Last Admin: 08/23/19 09:56 Dose: 1 mg Sodium Chloride (Ns 0.9% 1000 Ml) 1,000 mls @ 100 mls/hr IV PER RATE [facility] Last Admin: 08/22/19 23:48 Dose: 100 mls/hr Levetiracetam (Keppra Tab*) 250 mg PO DAILY [facility] Last Admin: 08/23/19 09:56 Dose: 250 mg Levetiracetam (Keppra Tab*) 500 mg PO Q24H [facility] Metoprolol Succinate (Toprol Xl Tab*) 50 mg PO QAM [facility] Last Admin: 08/23/19 09:55 Dose: 50 mg Nystatin (Nystatin Top Powder*) 1 applic TOPICAL BID [facility] Last Admin: 08/23/19 10:00 Dose: 1 applic Pantoprazole Sodium (Protonix Tab*) 40 mg PO DAILY [facility] Last Admin: 08/23/19 09:56 Dose: 40 mg Vital Signs - 8 hr 08/23/19 15:32 Temperature 97 F Pulse Rate 68 Respiratory 16 Rate Blood Pressure 107/55 (mmHg) O2 Sat by Pulse 100 Oximetry Oxygen Devices in Use Now: None Eyes: No Scleral Icterus Ears/Nose/Mouth/Throat: NL Teeth, Lips, Gums Neck: NL Appearance and Movements; NL JVP Respiratory: Symmetrical Chest Expansion and Respiratory Effort, Clear to Auscultation Cardiovascular: NL Sounds; No Murmurs; No JVD Abdominal: NL Sounds; No Tenderness; No Distention Extremities: No Edema Neurological: Alert and Oriented x 3, - - gait not tested.able to move all 4 extremities.alert able to give history.no focal cranial nerve deficits Result Diagrams: 08/23/19 06:24 08/23/19 06:24 Assess/Plan/Problems-Billing Assessment: This is an 89 year old female with a past medical history for previous TIA, afib , and carotid stenosis who presented to the emergency room on 08/21/19 with altered mental status, left sided weakness and shaking. It is looking less likely that it is a stroke and more probably seizure activity. - Patient Problems (1) Seizure Current Visit: Yes Status: Acute Code(s): R56.9 - UNSPECIFIED CONVULSIONS SNOMED Code(s): 24977242 Comment: Likely seizure activity with todds paralysis Improved Increased lactate initially from seizure Continue keppra appreciate neurology dr williamson's input eeg today, mri with and w/o contrast keppra level pt/ot (2) Altered mental status Current Visit: Yes Status: Acute Code(s): R41.82 - ALTERED MENTAL STATUS, UNSPECIFIED SNOMED Code(s): 686325334 Comment: -Likely from seizure than stroke -h/o tia -improved (3) DVT prophylaxis Current Visit: Yes Status: Acute Code(s): Z29.9 - ENCOUNTER FOR PROPHYLACTIC MEASURES, UNSPECIFIED SNOMED Code(s): 197994419 (4) Electrolyte disturbance Current Visit: Yes Status: Acute Code(s): E87.8 - OTH DISORDERS OF ELECTROLYTE AND FLUID BALANCE, NEC SNOMED Code(s): 658675230 (5) Anxiety Current Visit: Yes Status: Chronic Code(s): F41.9 - ANXIETY DISORDER, UNSPECIFIED SNOMED Code(s): 44969013 Comment: Wellbutrin held due to lowered seizure threshhold. (6) Afib Current Visit: No Status: Acute Code(s): I48.91 - UNSPECIFIED ATRIAL FIBRILLATION SNOMED Code(s): 05996492 Comment: -Currently converting back and forth between sinus rhythm and afib. Rate controlled with metoprolol. ASA and warfarin held due to INR of 4.74 intially. in 3 now.Will recheck INR tomorrow. (7) Hyperlipidemia Current Visit: Yes Status: Chronic Code(s): E78.5 - HYPERLIPIDEMIA, UNSPECIFIED SNOMED Code(s): 41733920 Comment: Continue atorvastatin. (8) Small vessel disease Current Visit: Yes Status: Chronic Code(s): I73.9 - PERIPHERAL VASCULAR DISEASE, UNSPECIFIED SNOMED Code(s): 94470914 Comment: Held donepezil due to lowered seizure threshhold. (9) DNR (do not resuscitate) Current Visit: Yes Status: Acute Status and Disposition: Disposition: Inpatient pt/ot eval will get ua to r/o uti
[2019-08-23] MEDS ORDERED: NS 0.9% 1000 ML** 1,000 ML IV SCH (18:19)
--- NOTE | 2019-08-23 20:03 | EEG ---
ELECTROENCEPHALOGRAPHY: DATE OF STUDY: 08/23/19 - ROOM #[id number] DATE READ: 08/23/19 ORDERED BY: Talon Griffin NP CLINICAL PROBLEM: Ms. Rani Francisco is an 89-year-old female with history of seizure-like episode. There were described shaking like episodes and confusion. This EEG was obtained to evaluate for epileptiform abnormalities or electrographic seizures. DURATION OF RECORDIN to 1218. CLINICAL STATE: Awake and drowsiness. REPORT: The background lacked organization of clearly defined anterior- posterior voltage and frequency gradients. There was a poorly sustained slow posterior dominant rhythm of 7 Hz, mostly seen in the left hemisphere. Instead , the background consisted of diffuse medium amplitude polymorphic 3-6 Hz delta and theta range slowing. At times, the delta slowing became sharply contoured and took on a triphasic morphology that was intermixed with vertex waves. There was emergence of some faster frequency in verbal and tactile stimulation. There was nearly continuous flattening of the background in the right temporooccipital region. This was maximal at T5 and O2. There was occasional high amplitude 1-2 Hz delta slowing in that region. There were no clear epileptiform discharges. Single electrode EKG showed normal sinus rhythm. There were no electrographic seizures. CLINICAL IMPRESSION: This is an abnormal awake and drowsy EEG due to the presence of diffuse slowing, slow posterior dominant rhythm, and nearly continuous slowing and suppression of the background in the right temporo- occipital region. These findings are suggestive of a nonspecific mild-moderate diffuse encephalopathy with slowing in the right temporooccipital region suggestive of a focal neuronal dysfunction or postictal suppression. [id number]/[facility] #: [id number] [facility] CENTERNilsa
[2019-08-23] MEDS ORDERED: Gadoteridol* (CONTRAST) 279.3 MG/ML 10 ML IV ONE ×2 (20:46→20:48)
[2019-08-23] MEDS ORDERED: levETIRAcetam TAB* 500 MG PO SCH (21:00)
[2019-08-23] MEDS: Atorvastatin* 80 MG TAB PO SCH (21:56)
[2019-08-24 04:35] VITALS: BP 119/53
[2019-08-24 06:33] LABS: Hematocrit 31 % (35-47); Hemoglobin 10.1 g/dL (12.0-16.0); Mean Corpuscular HGB Conc 33 g/dL (31-36); Mean Corpuscular Hemoglobin 35 pg (27-31); Mean Corpuscular Volume 107 fL (80-97); Mean Platelet Volume 10.3 fL (7.4-10.4); Platelet Count 164 10^3/uL (150-450); Red Blood Count 2.87 10^6 /uL (3.70-4.87); Red Cell Distribution Width 19 % (10-15); White Blood Count 7.8 10^3/uL (3.5-10.8)
[2019-08-24 06:40] LABS: BUN/Creatinine Ratio 8.9 (8-20); Calcium 7.9 mg/dL (8.6-10.3); EGFR African American 55.6 (>60); EGFR Non-African American 45.9 (>60); Potassium 3.7 mmol/L (3.5-5.0)
[2019-08-24 07:07] LABS: ABS Basophils 0.1 10^3/ul (0-0.2); ABS Eosinophils 0.6 10^3/ul (0-0.6); ABS Lymphocytes 1.5 10^3/ul (1.0-4.8); ABS Monocytes 0.8 10^3/ul (0-0.8); ABS Neutrophils 4.8 10^3/ul (1.5-7.7); Eosinophil % 7.7 %; Lymphocyte % 19.5 %
[2019-08-24] MEDS: levETIRAcetam TAB* 500 MG PO SCH (08:09)
[2019-08-24] MEDS: Nystatin TOP POWDER* 15 GM BTL TOPICAL SCH (08:09)
[2019-08-24] MEDS: Folic Acid TAB* 1 MG PO SCH (08:09)
[2019-08-24] MEDS: Metoprolol Succinate XL TAB* 50 MG PO SCH (08:09)
[2019-08-24] MEDS: Pantoprazole TAB * 40 MG TAB PO SCH (08:09)
[2019-08-24 08:11] LABS: Urine Appearance Clear; Urine Bacteria Absent (Absent); Urine Bilirubin Negative (Negative); Urine Blood Negative (Negative); Urine Color Colorless; Urine Glucose Negative (Negative); Urine Ketones Negative (Negative); Urine Nitrite Negative (Negative); Urine Protein Negative (Negative); Urine Red Blood Cell Absent (Absent); Urine Specific Gravity 1.004 (1.010-1.030); Urine Squamous Epithelial Cell Present (Absent); Urine Urobilinogen Negative (Negative); Urine White Blood Cell 1+(6-10/hpf) (Absent)
--- NOTE | 2019-08-25 04:01 | DS ---
CC: Dr. Mauri Ryan; Dr. Willard Gordon * DISCHARGE SUMMARY: DATE OF ADMISSION: 08/21/19 DATE OF DISCHARGE: 08/24/19 PRIMARY CARE PHYSICIAN: Dr. Mauri Ryan. NEUROLOGIST: Dr. Willard Gordon. PRIMARY DIAGNOSES: 1. 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 2. Hypomagnesemia. 3. Dementia. 4. Depression. SECONDARY DIAGNOSES: 1. Atrial fibrillation. 2. Gastroesophageal reflux disease. 3. Anxiety. 4. History of transient ischemic attack. 5. Hyperlipidemia. CONSULTS: Dr. Hawkins of Neurology. DISCHARGE MEDICATIONS: 1. Rivaroxaban 15 mg daily. 2. Sertraline 25 mg daily. 3. Levetiracetam 250 mg in the morning and 500 mg in the evening. 4. Metoprolol succinate 50 mg in the morning. 5. Atorvastatin 80 mg in the evening. 6. Methotrexate 7.5 mg weekly. 7. PreserVision Softgel 2 tablets twice a day. 8. Tylenol 650 mg every 4 hours as needed for pain. 9. Vitamin B12 at 1000 mcg daily. 10. Folic acid 1 mg daily. HISTORY OF PRESENT ILLNESS: Ms. Francisco is an 89-year-old woman with a history of atrial fibrillation, on warfarin; CAD; GERD; anxiety; history of TIA who was in the hospital approximately 1 month ago with complaints of left-sided weakness and had ultimately been diagnosed with a TIA. The patient underwent further workup and was discharged to [facility] for rehab and then eventually was discharged back home. On the day of presentation, while sitting and talking with her aide, the patient was noted to have shaking all over and became unresponsive. She initially did not respond to voice, so the patient's aide called 911. Eventually, the patient started to become responsive again, but her speech was nonsensical and slurred. By the time EMS arrived, there was noted left-sided weakness, so stroke system was activated and the patient was brought to the ER with code argelia. HOSPITAL COURSE: In the emergency room, the patient was found to have left- sided weakness and her speech also continued to improve. She was not given tPA as she was already on warfarin and her symptoms were improving. The patient reports that she recently felt under the weather with URI symptoms, and on the morning of presentation was feeling nauseated. The patient states she was recently started on atorvastatin. Given stroke activation, [place] was consulted and recommended an MRI, but the patient had higher suspicion for seizure. She was seen and evaluated by neuro services at [facility], who recommended to continue her on Keppra, which was started in the emergency room, with repeat CT scan and EEG with Dr. Hawkins of Neurology. By next day, Neuro recommended to continue Keppra as initiated, but to discontinue medications that lowered the seizure threshold such as her bupropion and donepezil. The patient was tolerating Keppra initiation well. There was a very low suspicion that the patient had a TIA. By day of discharge given the discontinuation of the patient 's home antidepressants, she requested initiation of another antidepressant, so she was started on a low dose of sertraline to be followed up by her outpatient providers. The patient also requested simplification of her home anticoagulation therapy as it was difficult for her to maintain INR checks and warfarin, but she was reluctant to go on a twice a day medication, so she was initiated on rivaroxaban, and her warfarin had been discontinued. By day of discharge, the patient denied focal weakness, slurred speech, memory issues, recent loss of consciousness, chest pain, shortness of breath, orthopnea, abdominal pain, nausea, vomiting, constipation, diarrhea. She reported mild anxiety as she hopes she does not have another seizure and is still adjusting to life back at home after rehab. PHYSICAL EXAMINATION: Afebrile, heart rate 70s, blood pressure 119/53, respiratory rate 19, oxygen saturation 98% on room air. General: She is a pleasant, elderly woman who is frail appearing, but in no acute distress. She is very pleasant. Neck: Supple. No JVD. HEENT: OP clear. Moist mucous membranes. Heart: Regular rate and rhythm. No murmurs, gallops, or rubs. Lungs: Clear to auscultation bilaterally. Abdomen: Soft, nontender, nondistended. Extremities: Warm and well perfused without evidence of edema. Neuro Exam: A and O x3. Speech fluent. CN II through XII intact. Strength 5/ 5 in four extremities. Finger-to- nose is intact bilaterally. PERTINENT STUDIES: CBC notable for hemoglobin of 10.1 with MCV of 104, which is the patient's baseline. BMP is notable for creatinine of 1.12, which is the patient's baseline. UA with leuk esterase 1+, but negative for bacteria or nitrites. Hemoglobin A1c 5.4. LDL 51. Brain CT without acute intracranial abnormality, significant for chronic microvascular ischemic changes. Brain MRI without acute intracranial abnormality. EEG with clinical impression that is an abnormal awake and drowsy EEG due to the presence of diffuse slowing, slow posterior dominant rhythm, and nearly continuous slowing and suppression of the background in the right temporooccipital region. These findings are suggestive of a nonspecific mild to moderate diffuse encephalopathy with slowing in the right temporooccipital region suggestive of a focal neuronal dysfunction or postictal suppression. DISCHARGE PLAN: The patient is to follow up with her primary care physician as well as [facility]. She was given referral for visiting nurse service. Her home warfarin was switched to Xarelto. Her home PPI was stopped given significantly low magnesium on presentation. For her new seizure-like activity , she was initiated on Keppra and her home bupropion and donepezil were discontinued as they lowered the seizure threshold. For ongoing treatment for depression, she was initiated on sertraline 25 mg daily and educated that she could take half a tablet daily for the first week and she should follow up titration of this medication as well as psychotherapy with outpatient providers. She should eat a healthy diet, low in processed foods, and resume activity as tolerated. The patient was educated on return precautions which include recurrence of seizure or focal neuro deficits or signs and symptoms of bleeding. DISPOSITION: To home. CONDITION: Improved. TIME SPENT: Approximately 60 minutes was spent on discharge of this patient, more than half of which was spent with care coordination at bedside for interview and exam. [id number]/[facility] #: [id number] [place]
== END 2019-08-24 16:40 | disposition home or self-care (01) | DRG 92 ==
LOC: ED 18:32 → MEDTELE 20:27 → OBSVTOIN 08-23 11:00
PROVIDERS: ADMIT Internal Medicine; ATTEND Internal Medicine
PROC: 4A00X4Z Measurement of Central Nervous Electrical Activity, External Approach (ICD-10-PCS; principal; 2019-08-23)
DX: G83.84 Todd's paralysis (postepileptic) (principal); E87.2 Acidosis; R56.9 Unspecified convulsions; I73.9 Peripheral vascular disease, unspecified; I48.91 Unspecified atrial fibrillation; K21.9 Gastro-esophageal reflux disease without esophagitis; F41.9 Anxiety disorder, unspecified; E78.5 Hyperlipidemia, unspecified; H26.9 Unspecified cataract; M19.90 Unspecified osteoarthritis, unspecified site; M81.0 Age-related osteoporosis without current pathological fracture; M06.9 Rheumatoid arthritis, unspecified; I10 Essential (primary) hypertension; F03.90 Unspecified dementia, unspecified severity, without behavioral disturbance, psychotic disturbance, mood disturbance, and anxiety; E87.8 Other disorders of electrolyte and fluid balance, not elsewhere classified; E83.42 Hypomagnesemia; F32.9 Major depressive disorder, single episode, unspecified; Z79.01 Long term (current) use of anticoagulants; Z86.73 Personal history of transient ischemic attack (TIA), and cerebral infarction without residual deficits; Z90.49 Acquired absence of other specified parts of digestive tract; Z88.1 Allergy status to other antibiotic agents; Z83.3 Family history of diabetes mellitus; Z80.0 Family history of malignant neoplasm of digestive organs; Z87.891 Personal history of nicotine dependence; Z88.2 Allergy status to sulfonamides; Z66 Do not resuscitate
CPT/HCPCS: 36415; 70450; 70553; 71045; 80048; 80053; 80061; 80177; 81003; 81015; 82550; 83036; 83605; 83735; 84484; 85025; 85027; 85610; 85730; 87077; 87086; 87186; 93005; 95819; 96365; 96375; 99284; A9270-GY; A9579; G0378; G8978-GP-CK; G8979-GP-CI; J3475; J3490

== ENCOUNTER 2019-11-11 21:03 | Emergency (ER) | payer MEDICARE ==
[2019-11-11 21:38] LABS: Hematocrit 31 % (35-47); Hemoglobin 10.5 g/dL (12.0-16.0); Mean Corpuscular HGB Conc 33 g/dL (31-36); Mean Corpuscular Hemoglobin 34 pg (27-31); Mean Corpuscular Volume 101 fL (80-97); Mean Platelet Volume 9.9 fL (7.4-10.4); Platelet Count 203 10^3/uL (150-450); Red Cell Distribution Width 17 % (10-15); White Blood Count 9.1 10^3/uL (3.5-10.8)
[2019-11-11 21:54] LABS: INR 7.06 (0.82-1.09)
[2019-11-11 21:55] LABS: Albumin 3.5 g/dL (3.2-5.2); BUN/Creatinine Ratio 9.2 (8-20); Calcium 8.8 mg/dL (8.6-10.3); EGFR African American 42.6 (>60); EGFR Non-African American 35.2 (>60); Globulin 3.5 g/dL (2-4); Potassium 3.9 mmol/L (3.5-5.0); Total Bilirubin 0.3 mg/dL (0.2-1.0)
--- NOTE | 2019-11-12 00:37 | ED ---
Complex/Multi-Sys Presentation - HPI Summary HPI Summary: Patient is an 89 y/o F presenting [place] [facility] [place] elevated [place]. She has been on Coumadin for the past few years for her afib. INR has been in therapeutic range for the past few weeks. However, when patient was evaluated by family medicine on 11/11/19, INR was noted to be 7. Patient was sent to ED and INR was 7 as well. There are no recent medication changes or changes in diet noted. Family states that the patient does eat very little at baseline. Patient claims that she occasionally has blood in her stool, but none recently. On triage, pain is denied. 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 Home medications and allergies are reviewed. Patient is a level 5 caveat secondary to dementia. Family provides history. - History Of Current Complaint Chief Complaint: EDGeneral Time Seen by Provider: 11/12/19 00:25 Hx Obtained From: Family/[employer]eder Hx From Patient Unobtainable Due To: Dementia - level 5 caveat secondary to dementia Onset/Duration: Still Present Timing: Constant Severity Currently: None Aggravating Factor(s): nothing Alleviating Factor(s): nothing Associated Signs And Symptoms: Positive: Other - positive - elevated INR; negative - recent blood in stool - Allergies/Home Medications Allergies/Adverse Reactions: Allergies Allergy/AdvReac Type Severity Reaction Status Date / Time sulfamethoxazole Allergy Hives Verified 11/11/19 21:09 [From Bactrim] trimethoprim [From Bactrim] Allergy Hives Verified 11/11/19 21:09 Home Medications: Home Medications Warfarin Sodium 2.5 mg PO DAILY 11/12/19 [History Confirmed 11/12/19] PMH/Surg Hx/FS Hx/Imm Hx Endocrine/Hematology History: Denies: Hx Diabetes Cardiovascular History: Reports: Hx Atrial Fibrillation, Hx Hypertension, Other Cardiovascular Problems/Disorders - Afib Denies: Hx Angina, Hx Coronary Artery Disease, Hx Hypercholesterolemia, Hx Myocardial Infarction, Hx Pacemaker/ICD, Hx Peripheral Vascular Disease, Hx Valvular Heart Disease Respiratory History: Denies: Hx Asthma, Hx Chronic Obstructive Pulmonary Disease (COPD) GI History: Reports: Hx Ulcer History: Reports: Other Problems/Disorders - stress incontinence per pt Denies: Hx Dialysis, Hx Renal Disease Musculoskeletal History: Reports: Hx Arthritis, Hx Osteoporosis Sensory History: Reports: Hx Hearing Aid - NOT IN Denies: Hx Contacts or Glasses, Hx Legally Blind, Hx Deafness Opthamlomology History: Denies: Hx Contacts or Glasses, Hx Legally Blind Neurological History: Reports: Hx Dementia - mild dementia, Other Neuro Impairments/Disorders - degenerative disc disease Denies: Hx Seizures Psychiatric History: Denies: Hx Panic Disorder, Hx Inpatient Treatment - Surgical History Surgery Procedure, Year, and Place: appendectomy. loop recorder - [place] LIN[place] RECORDER PLACED [place] [facility] - Immunization History Date of Tetanus Vaccine: unknown Infectious Disease History: No Infectious Disease History: Denies: Hx of Known/Suspected MRSA, Traveled Outside the [place] in Last 30 Days - Family History Known Family History: Positive: Cardiac Disease, Diabetes, Other - CVA - Social History Alcohol Use: None Hx Substance Use: No Substance Use Type: Reports: None Substance Use Comment - Amount & Last Used: unable to obtain at this time Smoking Status (MU): Former Smoker Type: Cigarettes Have You Smoked in the Last Year: No Review of Systems - ROS Summary Review of Systems Summary: Home Medications Medication Instructions Recorded Confirmed Type Folic Acid TAB* [Folvite TAB*] 1 mg PO DAILY 11/06/15 11/12/19 History Methotrexate TAB* 7.5 mg PO WEEKLY 07/23/17 11/12/19 History Metoprolol Succinate XL TAB* 25 mg PO BID 06/29/18 11/12/19 History [Toprol XL TAB*] Preservision Areds Softgel 2 tab PO BID 06/29/18 11/12/19 History Acetaminophen TAB* [Tylenol TAB*] 650 mg PO Q4H PRN #30 tab MDD 6 07/02/1811/12 Rx tabs Atorvastatin* [Lipitor 80 MG*] 80 mg PO 2100 tab 07/28/19 11/12/19 Rx Cyanocobalamin TAB* [Vitamin B12 1,000 mcg PO DAILY tab 07/28/19 11/12/19 Rx TAB*] Sertraline* [Zoloft*] 25 mg PO DAILY #30 tab 08/24/19 11/12/19 Rx Warfarin Sodium 2.5 mg PO DAILY 11/12/19 11/12/19 History level 5 caveat secondary to dementia Constitutional: Other - positive - elevated INR Negative: Fever Gastrointestinal: Other - negative - recent blood in stool All Other Systems Reviewed And Are Negative: No - Comments Additional Review of Systems Comments: level 5 caveat secondary to dementia Physical Exam - Summary Physical Exam Summary: General: Well-developed, Well-nourished, Elderly Female. No acute distress. HEENT: Normocephalic, Atraumatic. Eyes: Conjuctiva normal, PERRL. Oropharynx: Clear, mucous membranes moist, (-) exudates. Neck: Soft, FROM, (-) lymphadenopathy, (-) thyromegaly, (-) JVD. Cardiovascular: irregularly irregular, (-) murmur. Lungs: Clear to auscultation bilaterally (-) wheezes, (-) rales, (-) rhonchi. Abdomen: Soft, non-tender, non-distended, (-) organomegaly, normal bowel sounds. Back: (-) CVA tenderness Extremities: No edema. Skin: Warm, dry, (-) rash. Neuro: Confused, poor memory, alert and oriented x1 Psychiatric: Mood normal, affect normal. Triage Information Reviewed: Yes Vital Signs On Initial Exam: Initial Vitals Temp Pulse Resp BP Pulse Ox 98.1 F 104 16 131/82 97 11/11/19 21:05 11/11/19 21:05 11/11/19 21:05 11/11/19 21:05 11/11/19 21:05 Vital Signs Reviewed: Yes Procedures - Sedation Patient Received Moderate/Deep Sedation with Procedure: No Diagnostics - Vital Signs Vital Signs Temp Pulse Resp BP Pulse Ox 11/11/19 23:13 97.2 F 127 18 115/81 96 11/11/19 21:05 98.1 F 104 16 131/82 97 - Laboratory Lab Results: Lab Results 11/11/19 11/11/19 11/11/19 Range/Units 21:26 21:26 21:26 WBC 9.1 (3.5-10.8) 10^3/uL RBC 3.10 L (3.70-4.87) 10^6 /uL Hgb 10.5 L (12.0-16.0) g/dL Hct 31 L (35-47) % MCV 101 H (80-97) fL MCH 34 H (27-31) pg MCHC 33 (31-36) g/dL RDW 17 H (10-15) % Plt Count 203 (150-450) 10^3/uL MPV 9.9 (7.4-10.4) fL INR (Anticoag Therapy) 7.06 H* (0.82-1.09) Sodium 139 (135-145) mmol/L Potassium 3.9 (3.5-5.0) mmol/L Chloride 107 (101-111) mmol/L Carbon Dioxide 26 (22-32) mmol/L Anion Gap 6 (2-11) mmol/L BUN 13 (6-24) mg/dL Creatinine 1.41 H (0.51-0.95) mg/dL Est GFR ( Amer) 42.6 (>60) Est GFR (Non-Af Amer) 35.2 (>60) BUN/Creatinine Ratio 9.2 (8-20) Glucose 101 H (70-100) mg/dL Calcium 8.8 (8.6-10.3) mg/dL Total Bilirubin 0.30 (0.2-1.0) mg/dL AST 21 (13-39) U/L ALT 15 (7-52) U/L Alkaline Phosphatase 55 (34-104) U/L Total Protein 7.0 (6.4-8.9) g/dL Albumin 3.5 (3.2-5.2) g/dL Globulin 3.5 (2-4) g/dL Albumin/Globulin Ratio 1.0 (1-3) Result Diagrams: 11/11/19 21:26 11/11/19 21:26 Lab Statement: Any lab studies that have been ordered have been reviewed, and results considered in the medical decision making process. Complex Multi-Symp Course/Dx Course Of Treatment: 81-year-old female brought in by her son for elevated INR. Patient is on Coumadin for atrial fibrillation. She has known dementia. There have been no signs or symptoms of bleeding. No recent antibiotics. No known change in her diet. Physical exam and workup essentially negative except elevated INR. Advised patient to hold Coumadin on Friday. Take a half dose Friday and Friday recheck on Friday. Follow-up sooner for any worsening symptoms. - Diagnoses Provider Diagnoses: Elevated INR Discharge ED - Sign-Out/Discharge Documenting (check all that apply): Patient Departure - DISCHARGE - Discharge Plan Condition: Stable Disposition: HOME Patient Education Materials: Elevated INR (ED) Referrals: Mauri Ryan MD [Primary Care Provider] - 3 Days Additional Instructions: DO NOT TAKE YOUR COUMADIN ON 11/12/19. TAKE HALF OF YOUR REGULAR COUMADIN DOSAGE ON 11/13/19, WELL 11/14/19. HAVE REPEAT BLOOD WORK DONE TO CHECK YOUR INR ON 11/15/19. - Billing Disposition and Condition Condition: STABLE Disposition: Home - Attestation Statements Document Initiated by Rufina: Yes Documenting Scribe: KIKA BERTRAND Provider For Whom Rufina is Documenting (Include Credential): FRANCY MUNOZ MD Scribe Attestation: I, KIKA BERTRAND, scribed for FRANCY MUNOZ MD on 11/12/19 at 0546. Scribe Documentation Reviewed: Yes Provider Attestation: The documentation as recorded by the KIKA mason accurately reflects the service I personally performed and the decisions made by me, FRANCY MUNOZ MD Status of Scribe Document: Viewed
[2019-11-12 00:56] VITALS: BP 100/62
== END 2019-11-12 00:53 | disposition home or self-care (01) ==
LOC: ED 21:03
DX: R79.1 Abnormal coagulation profile (principal); I48.91 Unspecified atrial fibrillation; I10 Essential (primary) hypertension; F03.90 Unspecified dementia, unspecified severity, without behavioral disturbance, psychotic disturbance, mood disturbance, and anxiety; Z90.89 Acquired absence of other organs; Z87.891 Personal history of nicotine dependence; Z79.01 Long term (current) use of anticoagulants; Z79.899 Other long term (current) drug therapy; Z88.1 Allergy status to other antibiotic agents; Z88.2 Allergy status to sulfonamides
CPT/HCPCS: 36415; 80053; 85027; 85610; 99282

== ENCOUNTER 2020-06-11 13:16 | Inpatient (IN) ==
[2020-06-11] MEDS ORDERED: cefTRIAXone 1 gm/50 mL NS BAG 1 GM/50 ML BAG IV ONE (13:18)
[2020-06-11 13:42] LABS: ABS Lymphocytes 1.1 10^3/ul (1.0-4.8); ABS Monocytes 0.5 10^3/ul (0-0.8); Hematocrit 26 % (35-47); Hemoglobin 8.6 g/dL (12.0-16.0); Lymphocyte % 13.3 %; Mean Corpuscular HGB Conc 34 g/dL (31-36); Mean Corpuscular Hemoglobin 34 pg (27-31); Mean Corpuscular Volume 103 fL (80-97); Mean Platelet Volume 9.9 fL (7.4-10.4); Platelet Count 175 10^3/uL (150-450); Red Cell Distribution Width 19 % (10-15); White Blood Count 8.1 10^3/uL (3.5-10.8)
[2020-06-11 13:44] LABS: Activated Partial Thrombo Time 25.2 seconds (26.0-38.0); INR 1.96 (0.82-1.09)
[2020-06-11 13:54] LABS: ALT 11 U/L (7-52); AST 19 U/L (13-39); Albumin 2.9 g/dL (3.2-5.2); Alkaline Phosphatase 42 U/L (34-104); Anion Gap 4 mmol/L (2-11); Blood Urea Nitrogen 11 mg/dL (6-24); C Reactive Protein 7.49 mg/L (<8.01); CO2 Carbon Dioxide 28 mmol/L (22-32); Calcium 7.4 mg/dL (8.6-10.3); Chloride 106 mmol/L (101-111); EGFR African American 63.3 (>60); EGFR Non-African American 52.3 (>60); Glucose 105 mg/dL (70-100); Potassium 3.9 mmol/L (3.5-5.0); Sodium 138 mmol/L (135-145); Total Protein 5.9 g/dL (6.4-8.9)
[2020-06-11] MEDS ORDERED: LACTATED RINGERS IV SCH (14:00)
[2020-06-11 14:02] LABS: Troponin I 0.03 ng/mL (<0.03)
[2020-06-11 16:47] LABS: Urine Appearance Clear; Urine Bilirubin Negative (Negative); Urine Blood Negative (Negative); Urine Color Yellow; Urine Glucose Negative (Negative); Urine Ketones Negative (Negative); Urine Nitrite Negative (Negative); Urine Protein Negative (Negative); Urine Specific Gravity 1.015 (1.010-1.030); Urine Urobilinogen Negative (Negative)
[2020-06-11 18:27] LABS: Troponin I 0.03 ng/mL (<0.03)
[2020-06-11] MEDS: NS 0.9% 1000 ml BAG 1,000 ML IV SCH (20:45)
[2020-06-11] MEDS: Enoxaparin 40 MG/0.4 ML SYR SUBCUT SCH (20:45)
[2020-06-12] MEDS: NS 0.9% 1000 ml BAG 1,000 ML IV SCH ×3 (04:55→21:41)
[2020-06-12 05:56] LABS: ABS Basophils 0.1 10^3/ul (0-0.2); ABS Eosinophils 0.1 10^3/ul (0-0.6); ABS Monocytes 0.6 10^3/ul (0-0.8); Eosinophil % 1.9 %; Hematocrit 26 % (35-47); Hemoglobin 8.7 g/dL (12.0-16.0); Lymphocyte % 27.3 %; Mean Corpuscular HGB Conc 34 g/dL (31-36); Mean Corpuscular Hemoglobin 35 pg (27-31); Mean Corpuscular Volume 105 fL (80-97); Mean Platelet Volume 9.8 fL (7.4-10.4); Nucleated Red Blood Cells % 0.1; Platelet Count 157 10^3/uL (150-450); Red Blood Count 2.46 10^6 /uL (3.70-4.87); Red Cell Distribution Width 19 % (10-15); White Blood Count 7.5 10^3/uL (3.5-10.8)
[2020-06-12 06:16] LABS: BUN/Creatinine Ratio 11.5 (8-20); Calcium 7.4 mg/dL (8.6-10.3); EGFR African American 74.4 (>60); EGFR Non-African American 61.4 (>60); Potassium 3.3 mmol/L (3.5-5.0)
[2020-06-12] MEDS: Enoxaparin 40 MG/0.4 ML SYR SUBCUT SCH (15:19)
[2020-06-12] MEDS ORDERED: Magnesium Sulf 4 GM/100 ML IV 4,000 MG/100 ML BAG IVPB ONE (17:21)
[2020-06-12] MEDS ORDERED: Potassium Chlor 20 meq TAB.ER PO ONE (18:00)
[2020-06-13 06:48] LABS: Hematocrit 27 % (35-47); Hemoglobin 9.1 g/dL (12.0-16.0); Mean Corpuscular HGB Conc 34 g/dL (31-36); Mean Corpuscular Hemoglobin 35 pg (27-31); Mean Corpuscular Volume 104 fL (80-97); Mean Platelet Volume 10.5 fL (7.4-10.4); Platelet Count 161 10^3/uL (150-450); Red Blood Count 2.57 10^6 /uL (3.70-4.87); Red Cell Distribution Width 19 % (10-15); White Blood Count 8.5 10^3/uL (3.5-10.8)
[2020-06-13 07:00] LABS: INR 1.93 (0.82-1.09)
[2020-06-13 07:07] LABS: BUN/Creatinine Ratio 12.3 (8-20); Calcium 7.5 mg/dL (8.6-10.3); EGFR African American 80.7 (>60); EGFR Non-African American 66.7 (>60); Magnesium 1.9 mg/dL (1.9-2.7); Potassium 3.6 mmol/L (3.5-5.0)
[2020-06-13] MEDS: cefTRIAXone 1 gm/50 mL NS BAG 1 GM/50 ML BAG IVPB SCH (12:18)
[2020-06-13] MEDS: Enoxaparin 40 MG/0.4 ML SYR SUBCUT SCH (16:16)
[2020-06-14] MEDS: cefTRIAXone 1 gm/50 mL NS BAG 1 GM/50 ML BAG IVPB SCH (11:44)
[2020-06-14] MEDS: Enoxaparin 40 MG/0.4 ML SYR SUBCUT SCH (15:06)
[2020-06-15 07:37] LABS: BUN/Creatinine Ratio 14.5 (8-20); Calcium 7.8 mg/dL (8.6-10.3); EGFR African American 78.5 (>60); EGFR Non-African American 64.9 (>60); Potassium 3.5 mmol/L (3.5-5.0)
[2020-06-15] MEDS ORDERED: Polyethylene Glycol 3350 17 GM PACKET PO PRN (08:08)
[2020-06-15] MEDS: Senna TAB 8.6 mg TAB PO SCH (09:02)
[2020-06-15] MEDS: Enoxaparin 40 MG/0.4 ML SYR SUBCUT SCH (16:00)
[2020-06-16 07:34] LABS: INR 1.29 (0.82-1.09)
[2020-06-16] MEDS: Senna TAB 8.6 mg TAB PO SCH (09:18)
[2020-06-16 11:56] VITALS: BP 120/67
== END 2020-06-16 12:30 | DRG 948 ==
LOC: MEDTELE 13:16 → ED 13:16 → MEDTELE 16:49
PROVIDERS: ADMIT Nurse Practitioner Acute Care; ATTEND Internal Medicine

== ENCOUNTER 2020-09-09 10:41 | Inpatient (IN) ==
[2020-09-09] MEDS ORDERED: NS 0.9% 1000 ml BAG 1,000 ML IV ONE (10:43)
[2020-09-09] MEDS ORDERED: Iodixanol (CONTRAST) 320 MG/ML 100 ML SDV IV ONE (11:03)
[2020-09-09 11:34] LABS: ABS Basophils 0.1 10^3/ul (0-0.2); ABS Eosinophils 0.2 10^3/ul (0-0.6); ABS Lymphocytes 1.1 10^3/ul (1.0-4.8); ABS Monocytes 0.6 10^3/ul (0-0.8); ABS Neutrophils 4.1 10^3/ul (1.5-7.7); Eosinophil % 2.8 %; Hematocrit 27 % (35-47); Hemoglobin 8.6 g/dL (12.0-16.0); Lymphocyte % 18.7 %; Mean Corpuscular HGB Conc 32 g/dL (31-36); Mean Corpuscular Hemoglobin 32 pg (27-31); Mean Corpuscular Volume 98 fL (80-97); Mean Platelet Volume 9.6 fL (7.4-10.4); Platelet Count 196 10^3/uL (150-450); Red Blood Count 2.72 10^6 /uL (3.70-4.87); Red Cell Distribution Width 20 % (10-15)
[2020-09-09 11:44] LABS: Urine Appearance Clear; Urine Bilirubin Negative (Negative); Urine Blood Negative (Negative); Urine Color Yellow; Urine Glucose Negative (Negative); Urine Ketones Trace (Negative); Urine Nitrite Negative (Negative); Urine Protein Negative (Negative); Urine Specific Gravity 1.042 (1.010-1.030); Urine Urobilinogen Negative (Negative)
[2020-09-09 11:46] LABS: INR 1.32 (0.82-1.09)
[2020-09-09 11:51] LABS: Troponin I 0.02 ng/mL (<0.03)
[2020-09-09 11:53] LABS: ALT 12 U/L (7-52); AST 23 U/L (13-39); Albumin 3.1 g/dL (3.2-5.2); Albumin/Globulin Ratio 0.9 (1-3); Alkaline Phosphatase 48 U/L (34-104); Anion Gap 5 mmol/L (2-11); BUN/Creatinine Ratio 13.8 (8-20); Blood Urea Nitrogen 12 mg/dL (6-24); CO2 Carbon Dioxide 27 mmol/L (22-32); Calcium 8.6 mg/dL (8.6-10.3); Chloride 104 mmol/L (101-111); Cholesterol 104 mg/dL; EGFR African American 74.2 (>60); EGFR Non-African American 61.3 (>60); Globulin 3.6 g/dL (2-4); Glucose 94 mg/dL (70-100); HDL Cholesterol 29.5 mg/dL; LDL Cholesterol 56 mg/dL; Potassium 4.2 mmol/L (3.5-5.0); Sodium 136 mmol/L (135-145); Total Protein 6.7 g/dL (6.4-8.9); Triglycerides 95 mg/dL
[2020-09-09] MEDS ORDERED: Ondansetron 4 mg VIAL 2 MG/ML 2 ml VIAL IV PRN (14:56)
[2020-09-09 16:56] LABS: % Iron Saturation 61 % (15-55); Iron 166 ug/dL (50-212); Total Iron Binding Capacity 273 mcg/dL (250-450); Transferrin 195 mg/dL (203-362); Unsaturated Iron Binding 107 ug/dL
[2020-09-09] MEDS ORDERED: Warfarin per PHARMACY **NOTE FOLLOW UP SCH (17:00)
[2020-09-09 17:17] LABS: Ferritin 16.3 ng/mL (11-307)
[2020-09-09 17:21] LABS: Folate > 20.00 ng/mL (>3.99)
[2020-09-09 17:22] LABS: Vitamin B12 791 pg/mL (180-914)
[2020-09-09] MEDS: Nystatin TOP POWDER 15 GM BTL TOPICAL SCH (20:48)
[2020-09-09 23:42] LABS: BUN/Creatinine Ratio 13.4 (8-20); Calcium 8.7 mg/dL (8.6-10.3); EGFR African American 79.4 (>60); EGFR Non-African American 65.6 (>60); Magnesium 1.2 mg/dL (1.9-2.7); Potassium 3.4 mmol/L (3.5-5.0)
[2020-09-10] MEDS ORDERED: Magnesium Sulf 4 GM/100 ML IV 4,000 MG/100 ML BAG IVPB ONE (01:41)
[2020-09-10] MEDS ORDERED: Potassium Chlor 20 meq TAB.ER PO ONE (03:00)
[2020-09-10 07:16] LABS: BUN/Creatinine Ratio 13.4 (8-20); EGFR African American 79.4 (>60); EGFR Non-African American 65.6 (>60); HDL Cholesterol 30.8 mg/dL; Magnesium 3.2 mg/dL (1.9-2.7)
[2020-09-10 07:31] LABS: INR 1.28 (0.82-1.09)
[2020-09-10 07:47] LABS: ABS Basophils 0.1 10^3/ul (0-0.2); ABS Eosinophils 0.2 10^3/ul (0-0.6); ABS Monocytes 0.6 10^3/ul (0-0.8); ABS Neutrophils 5.8 10^3/ul (1.5-7.7); Eosinophil % 2.6 %; Hematocrit 28 % (35-47); Hemoglobin 9.2 g/dL (12.0-16.0); Lymphocyte % 13.2 %; Mean Corpuscular HGB Conc 33 g/dL (31-36); Mean Corpuscular Hemoglobin 32 pg (27-31); Mean Corpuscular Volume 98 fL (80-97); Mean Platelet Volume 10.5 fL (7.4-10.4); Platelet Count 200 10^3/uL (150-450); Red Blood Count 2.86 10^6 /uL (3.70-4.87); Red Cell Distribution Width 20 % (10-15); White Blood Count 7.7 10^3/uL (3.5-10.8)
[2020-09-10] MEDS: Nystatin TOP POWDER 15 GM BTL TOPICAL SCH ×3 (08:15→21:32)
[2020-09-10] MEDS: NS 0.9% 1000 ml BAG 1,000 ML IV SCH (14:21)
[2020-09-10] MEDS: Warfarin DAILY REMINDER **NOTE FOLLOW UP SCH (16:15)
[2020-09-11] MEDS: Nystatin TOP POWDER 15 GM BTL TOPICAL SCH ×3 (09:22→22:26)
[2020-09-11 11:35] LABS: INR 1.87 (0.82-1.09)
[2020-09-11] MEDS: Warfarin DAILY REMINDER **NOTE FOLLOW UP SCH (17:22)
[2020-09-12] MEDS: NS 0.9% 1000 ml BAG 1,000 ML IV SCH ×2 (03:38→19:20)
[2020-09-12] MEDS: Nystatin TOP POWDER 15 GM BTL TOPICAL SCH ×3 (08:14→21:21)
[2020-09-12 10:59] LABS: INR 1.88 (0.82-1.09)
[2020-09-12] MEDS: Warfarin DAILY REMINDER **NOTE FOLLOW UP SCH (17:05)
[2020-09-13 09:53] LABS: INR 2.16 (0.82-1.09)
[2020-09-13] MEDS: Nystatin TOP POWDER 15 GM BTL TOPICAL SCH (11:10)
[2020-09-13 11:56] VITALS: BP 112/51
== END 2020-09-13 13:00 | DRG 65 ==
LOC: ED 10:41 → MEDTELE 10:41
PROVIDERS: ADMIT Internal Medicine; ATTEND Student in an Organized Health Care Education/Training Program

== ENCOUNTER 2020-09-24 12:55 | Inpatient (IN) ==
[2020-09-24] MEDS ORDERED: NS 0.9% 1000 ml BAG 1,000 ML IV ONE ×3 (13:00→15:06)
[2020-09-24 13:24] LABS: ABS Lymphocytes 1.2 10^3/ul (1.0-4.8); ABS Monocytes 0.8 10^3/ul (0-0.8); ABS Neutrophils 15.4 10^3/ul (1.5-7.7); Eosinophil % 0.1 %; Hematocrit 26 % (35-47); Hemoglobin 8.5 g/dL (12.0-16.0); Mean Corpuscular HGB Conc 32 g/dL (31-36); Mean Corpuscular Hemoglobin 31 pg (27-31); Mean Corpuscular Volume 95 fL (80-97); Mean Platelet Volume 10.1 fL (7.4-10.4); Nucleated Red Blood Cells % 0.1; Platelet Count 286 10^3/uL (150-450); Red Blood Count 2.77 10^6 /uL (3.70-4.87); Red Cell Distribution Width 21 % (10-15); White Blood Count 17.4 10^3/uL (3.5-10.8)
[2020-09-24] MEDS ORDERED: cefTRIAXone 2 GM ADDV.VIAL 2 GM in NS 0.9% 100 ml BAG 100 ML IVPB ONE (13:37)
[2020-09-24 13:39] LABS: ALT 56 U/L (7-52); AST 263 U/L (13-39); Albumin 3.4 g/dL (3.2-5.2); Albumin/Globulin Ratio 0.8 (1-3); Alkaline Phosphatase 50 U/L (34-104); Anion Gap 11 mmol/L (2-11); BUN/Creatinine Ratio 27.6 (8-20); Blood Urea Nitrogen 37 mg/dL (6-24); CO2 Carbon Dioxide 24 mmol/L (22-32); Calcium 9.1 mg/dL (8.6-10.3); Chloride 105 mmol/L (101-111); Cholesterol 130 mg/dL; EGFR African American 45.1 (>60); EGFR Non-African American 37.2 (>60); Globulin 4.2 g/dL (2-4); Glucose 160 mg/dL (70-100); HDL Cholesterol 43.3 mg/dL; LDL Cholesterol 65 mg/dL; Potassium 4.8 mmol/L (3.5-5.0); Sodium 140 mmol/L (135-145); Total Protein 7.6 g/dL (6.4-8.9); Triglycerides 108 mg/dL
[2020-09-24 13:46] LABS: INR 1.35 (0.82-1.09)
[2020-09-24 13:50] LABS: Troponin I 56.92 ng/mL (<0.03)
[2020-09-24] MEDS ORDERED: Metoprolol Tartrate 5 mg VIAL 5 ml VIAL (1 mg/ml) IV ONE ×2 (14:14→23:34)
[2020-09-24] MEDS ORDERED: Heparin - STEMI 5,000 UNITS/ML 1 ml VIAL IV ONE (16:07)
[2020-09-24] MEDS ORDERED: Heparin DRIP 25,000 UNITS BAG 25,000 UNITS/500 ML BAG IV SCH (16:15)
[2020-09-24] MEDS ORDERED: Heparin 5000 UNITS/ML 1 mL VIAL IV SCH (17:00)
[2020-09-24 17:08] LABS: Blood Urea Nitrogen 34 mg/dL (6-24); Creatine Kinase 1025 U/L (10-223); EGFR African American 50.7 (>60); EGFR Non-African American 41.9 (>60)
[2020-09-24 17:15] LABS: Troponin I 60.11 ng/mL (<0.03)
[2020-09-24 17:32] LABS: Influenza A Molecular Negative (Negative); Influenza B Molecular Negative (Negative)
[2020-09-24 22:52] LABS: Troponin I 55.64 ng/mL (<0.03)
[2020-09-24] MEDS ORDERED: Metoprolol Tartrate 5 mg VIAL 5 ml VIAL (1 mg/ml) ONE (23:47)
[2020-09-24] MEDS: Nystatin TOP POWDER 15 GM BTL TOPICAL SCH (23:59)
[2020-09-25] MEDS: Metoprolol Tartrate 5 mg VIAL 5 ml VIAL (1 mg/ml) IV PRN ×2 (02:52→13:05)
[2020-09-25] MEDS ORDERED: Metoprolol Tartrate 5 mg VIAL 5 ml VIAL (1 mg/ml) IV ONE (05:05)
[2020-09-25] MEDS ORDERED: Metoprolol Tartrate 5 mg VIAL 5 ml VIAL (1 mg/ml) ONE (05:09)
[2020-09-25 05:56] LABS: BUN/Creatinine Ratio 30.6 (8-20); Blood Urea Nitrogen 34 mg/dL (6-24); CO2 Carbon Dioxide 22 mmol/L (22-32); Calcium 7.6 mg/dL (8.6-10.3); EGFR Non-African American 46.3 (>60); Glucose 112 mg/dL (70-100); Magnesium 1.6 mg/dL (1.9-2.7); Sodium 143 mmol/L (135-145)
[2020-09-25 05:57] LABS: Anion Gap 7 mmol/L (2-11); Chloride 114 mmol/L (101-111)
[2020-09-25 06:03] LABS: Hematocrit 19 % (35-47); Mean Corpuscular HGB Conc 32 g/dL (31-36); Mean Corpuscular Hemoglobin 31 pg (27-31); Mean Corpuscular Volume 98 fL (80-97); Mean Platelet Volume 10.4 fL (7.4-10.4); Platelet Count 176 10^3/uL (150-450); Red Blood Count 1.91 10^6 /uL (3.70-4.87); Red Cell Distribution Width 21 % (10-15); White Blood Count 10.6 10^3/uL (3.5-10.8)
[2020-09-25] MEDS ORDERED: Magnesium Sulfate 2 gm BAG 2 GM/50 ML BAG IVPB ONE (06:20)
[2020-09-25 06:53] LABS: Troponin I 47.74 ng/mL (<0.03)
[2020-09-25] MEDS: Nystatin TOP POWDER 15 GM BTL TOPICAL SCH ×3 (09:29→20:32)
[2020-09-25 18:13] LABS: Troponin I 36.55 ng/mL (<0.03)
[2020-09-25 18:51] LABS: % Iron Saturation 24 % (15-55); Iron 66 ug/dL (50-212); LDH 840 U/L (140-271); Total Iron Binding Capacity 270 mcg/dL (250-450); Transferrin 193 mg/dL (203-362); Unsaturated Iron Binding < 255 ug/dL
[2020-09-25 18:58] LABS: Folate 15.63 ng/mL (>3.99)
[2020-09-25 19:00] LABS: Vitamin B12 996 pg/mL (180-914)
[2020-09-25 20:11] LABS: Ferritin 34.3 ng/mL (11-307)
[2020-09-25] MEDS: Heparin 5000 UNITS/ML 1 mL VIAL SUBCUT SCH (21:00)
[2020-09-25 22:05] LABS: Hematocrit 32 % (35-47); Hemoglobin 10.7 g/dL (12.0-16.0); Mean Corpuscular HGB Conc 33 g/dL (31-36); Mean Corpuscular Hemoglobin 31 pg (27-31); Mean Corpuscular Volume 94 fL (80-97); Mean Platelet Volume 10.2 fL (7.4-10.4); Platelet Count 174 10^3/uL (150-450); Red Blood Count 3.43 10^6 /uL (3.70-4.87); Red Cell Distribution Width 19 % (10-15); White Blood Count 9.9 10^3/uL (3.5-10.8)
[2020-09-25 22:35] LABS: ABS Lymphocytes 1.6 10^3/ul (1.0-4.8); ABS Monocytes 0.9 10^3/ul (0-0.8); ABS Neutrophils 7.4 10^3/ul (1.5-7.7); Lymphocyte % 15.9 %; Nucleated Red Blood Cells % 0.2
[2020-09-26 04:55] LABS: Hematocrit 32 % (35-47); Hemoglobin 10.7 g/dL (12.0-16.0); Mean Corpuscular HGB Conc 33 g/dL (31-36); Mean Corpuscular Hemoglobin 31 pg (27-31); Mean Corpuscular Volume 94 fL (80-97); Mean Platelet Volume 10.2 fL (7.4-10.4); Platelet Count 173 10^3/uL (150-450); Red Blood Count 3.45 10^6 /uL (3.70-4.87); Red Cell Distribution Width 20 % (10-15); White Blood Count 10.2 10^3/uL (3.5-10.8)
[2020-09-26 05:09] LABS: Activated Partial Thrombo Time 24.9 seconds (26.0-38.0); INR 1.42 (0.82-1.09)
[2020-09-26 05:10] LABS: BUN/Creatinine Ratio 33.6 (8-20); Calcium 8.1 mg/dL (8.6-10.3); EGFR African American 53.2 (>60); Magnesium 2.1 mg/dL (1.9-2.7); Potassium 3.9 mmol/L (3.5-5.0)
[2020-09-26] MEDS: Heparin 5000 UNITS/ML 1 mL VIAL SUBCUT SCH ×2 (08:36→22:05)
[2020-09-26] MEDS: Nystatin TOP POWDER 15 GM BTL TOPICAL SCH ×3 (13:03→23:29)
[2020-09-26] MEDS ORDERED: Albuterol/Ipratropium NEB.SOL (2.5/0.5 MG) 3 ML NEB.SOLN INH PRN (22:31)
[2020-09-26] MEDS ORDERED: Furosemide 20 mg/2 ml IV VIAL IV SLOW PU ONE (23:08)
[2020-09-27] MEDS: metroNIDAZOLE IV 500 MG/100ML 500 MG/100 ML BAG IVPB SCH ×3 (00:48→15:20)
[2020-09-27] MEDS: cefTRIAXone 1 gm/50 mL NS BAG 1 GM/50 ML BAG IVPB SCH (00:49)
[2020-09-27 06:33] LABS: Hematocrit 34 % (35-47); Mean Corpuscular HGB Conc 32 g/dL (31-36); Mean Corpuscular Hemoglobin 31 pg (27-31); Mean Corpuscular Volume 96 fL (80-97); Mean Platelet Volume 10.6 fL (7.4-10.4); Platelet Count 171 10^3/uL (150-450); Red Blood Count 3.53 10^6 /uL (3.70-4.87); Red Cell Distribution Width 20 % (10-15); White Blood Count 10.1 10^3/uL (3.5-10.8)
[2020-09-27 07:36] LABS: BUN/Creatinine Ratio 31.7 (8-20); Calcium 8.4 mg/dL (8.6-10.3); EGFR African American 51.2 (>60); EGFR Non-African American 42.3 (>60); Potassium 3.6 mmol/L (3.5-5.0)
[2020-09-27] MEDS: Heparin 5000 UNITS/ML 1 mL VIAL SUBCUT SCH ×2 (08:59→21:37)
[2020-09-27] MEDS: Nystatin TOP POWDER 15 GM BTL TOPICAL SCH ×3 (10:06→20:24)
[2020-09-28] MEDS: cefTRIAXone 1 gm/50 mL NS BAG 1 GM/50 ML BAG IVPB SCH ×2 (00:15→22:51)
[2020-09-28] MEDS: metroNIDAZOLE IV 500 MG/100ML 500 MG/100 ML BAG IVPB SCH ×4 (01:09→23:29)
[2020-09-28 06:05] LABS: Hematocrit 35 % (35-47); Hemoglobin 11.3 g/dL (12.0-16.0); Mean Corpuscular HGB Conc 32 g/dL (31-36); Mean Corpuscular Hemoglobin 31 pg (27-31); Mean Corpuscular Volume 96 fL (80-97); Mean Platelet Volume 10.6 fL (7.4-10.4); Platelet Count 153 10^3/uL (150-450); Red Blood Count 3.68 10^6 /uL (3.70-4.87); Red Cell Distribution Width 19 % (10-15); White Blood Count 8.7 10^3/uL (3.5-10.8)
[2020-09-28 06:20] LABS: BUN/Creatinine Ratio 28.8 (8-20); Calcium 8.5 mg/dL (8.6-10.3); EGFR African American 52.2 (>60); EGFR Non-African American 43.1 (>60); Magnesium 1.9 mg/dL (1.9-2.7); Potassium 3.7 mmol/L (3.5-5.0)
[2020-09-28 06:38] LABS: INR 1.51 (0.82-1.09)
[2020-09-28] MEDS: Heparin 5000 UNITS/ML 1 mL VIAL SUBCUT SCH ×2 (09:02→20:34)
[2020-09-28] MEDS: Nystatin TOP POWDER 15 GM BTL TOPICAL SCH ×3 (09:03→20:36)
[2020-09-28] MEDS ORDERED: NS 0.45% 1000 ml BAG 1,000 ML IV SCH (10:00)
[2020-09-28] MEDS: Warfarin DAILY REMINDER **NOTE FOLLOW UP SCH (16:16)
[2020-09-28] MEDS ORDERED: Warfarin per PHARMACY **NOTE FOLLOW UP SCH (17:00)
[2020-09-29 06:36] LABS: INR 2.24 (0.82-1.09)
[2020-09-29] MEDS: Nystatin TOP POWDER 15 GM BTL TOPICAL SCH ×3 (07:56→20:50)
[2020-09-29 09:30] LABS: Methylmalonic Acid 0.19 nmol/mL (<=0.40)
[2020-09-29] MEDS: metroNIDAZOLE IV 500 MG/100ML 500 MG/100 ML BAG IVPB SCH ×2 (09:53→16:42)
[2020-09-29] MEDS ORDERED: Polyethylene Glycol 3350 17 GM PACKET PO PRN (13:22)
[2020-09-29] MEDS ORDERED: Senna TAB 8.6 mg TAB PO PRN (13:22)
[2020-09-29] MEDS: Warfarin DAILY REMINDER **NOTE FOLLOW UP SCH (17:05)
[2020-09-29] MEDS: cefTRIAXone 1 gm/50 mL NS BAG 1 GM/50 ML BAG IVPB SCH (23:07)
[2020-09-30] MEDS: metroNIDAZOLE IV 500 MG/100ML 500 MG/100 ML BAG IVPB SCH ×4 (00:14→16:41)
[2020-09-30] MEDS: Nystatin TOP POWDER 15 GM BTL TOPICAL SCH ×3 (09:23→21:11)
[2020-09-30 10:19] LABS: INR 4.22 (0.82-1.09)
[2020-09-30] MEDS: Warfarin DAILY REMINDER **NOTE FOLLOW UP SCH (16:38)
[2020-10-01] MEDS: cefTRIAXone 1 gm/50 mL NS BAG 1 GM/50 ML BAG IVPB SCH (00:10)
[2020-10-01] MEDS: metroNIDAZOLE IV 500 MG/100ML 500 MG/100 ML BAG IVPB SCH ×3 (00:58→15:10)
[2020-10-01 05:56] LABS: ABS Basophils 0.1 10^3/ul (0-0.2); ABS Eosinophils 0.1 10^3/ul (0-0.6); ABS Lymphocytes 1.3 10^3/ul (1.0-4.8); ABS Monocytes 0.8 10^3/ul (0-0.8); Hematocrit 37 % (35-47); Hemoglobin 11.9 g/dL (12.0-16.0); Lymphocyte % 13.9 %; Mean Corpuscular HGB Conc 32 g/dL (31-36); Mean Corpuscular Hemoglobin 31 pg (27-31); Mean Corpuscular Volume 97 fL (80-97); Mean Platelet Volume 11.6 fL (7.4-10.4); Nucleated Red Blood Cells % 0.3; Platelet Count 151 10^3/uL (150-450); Red Blood Count 3.85 10^6 /uL (3.70-4.87); Red Cell Distribution Width 20 % (10-15); White Blood Count 9.3 10^3/uL (3.5-10.8)
[2020-10-01 06:08] LABS: BUN/Creatinine Ratio 23.6 (8-20); Calcium 8.8 mg/dL (8.6-10.3); EGFR African American 49.7 (>60); EGFR Non-African American 41.1 (>60); Potassium 3.7 mmol/L (3.5-5.0)
[2020-10-01 06:16] LABS: INR 6.33 (0.82-1.09)
[2020-10-01] MEDS: Nystatin TOP POWDER 15 GM BTL TOPICAL SCH ×3 (08:57→21:05)
[2020-10-01 09:38] LABS: Magnesium 1.9 mg/dL (1.9-2.7)
[2020-10-01] MEDS: Morphine ORAL CONCENTRATE 5 MG/0.25 ML ORAL.SYRIN SL PRN ×3 (13:52→21:54)
[2020-10-01] MEDS: Warfarin DAILY REMINDER **NOTE FOLLOW UP SCH (16:42)
[2020-10-02] MEDS: cefTRIAXone 1 gm/50 mL NS BAG 1 GM/50 ML BAG IVPB SCH
[2020-10-02] MEDS: metroNIDAZOLE IV 500 MG/100ML 500 MG/100 ML BAG IVPB SCH (00:44)
[2020-10-02] MEDS: Metoprolol Tartrate 5 mg VIAL 5 ml VIAL (1 mg/ml) IV PRN (05:17)
[2020-10-02] MEDS: Morphine ORAL CONCENTRATE 5 MG/0.25 ML ORAL.SYRIN SL PRN ×2 (06:18→08:45)
[2020-10-02] MEDS: Nystatin TOP POWDER 15 GM BTL TOPICAL SCH ×3 (08:54→20:37)
[2020-10-02] MEDS ORDERED: Metoprolol Tartrate 5 mg VIAL 5 ml VIAL (1 mg/ml) IV PRN (09:32)
[2020-10-02] MEDS ORDERED: Metoprolol Tartrate 5 mg VIAL 5 ml VIAL (1 mg/ml) IV ONE (09:32)
[2020-10-02] MEDS: Warfarin DAILY REMINDER **NOTE FOLLOW UP SCH (17:56)
[2020-10-02 18:22] LABS: Urine Appearance Clear; Urine Bilirubin Negative (Negative); Urine Blood 1+ (Negative); Urine Color Amber; Urine Glucose Negative (Negative); Urine Ketones Negative (Negative); Urine Nitrite Negative (Negative); Urine Protein 1+(30 mg/dL) (Negative); Urine Specific Gravity 1.028 (1.010-1.030); Urine Urobilinogen Negative (Negative)
[2020-10-02 18:27] LABS: Urine Bacteria Absent (Absent); Urine Cellular Casts Present (Absent); Urine Red Blood Cell Trace(0-2/hpf) (Absent); Urine Squamous Epithelial Cell Present (Absent); Urine White Blood Cell Trace(0-5/hpf) (Absent)
[2020-10-03] MEDS: Nystatin TOP POWDER 15 GM BTL TOPICAL SCH ×3 (11:09→19:59)
[2020-10-03] MEDS: SERTRALINE 20 MG/ML PO SCH (11:10)
[2020-10-03] MEDS: Morphine ORAL CONCENTRATE 5 MG/0.25 ML ORAL.SYRIN SL PRN (19:56)
[2020-10-04] MEDS: Morphine ORAL CONCENTRATE 5 MG/0.25 ML ORAL.SYRIN SL PRN (01:46)
[2020-10-04 08:28] VITALS: BP 124/84
[2020-10-04] MEDS: SERTRALINE 20 MG/ML PO SCH (09:26)
[2020-10-04] MEDS: Nystatin TOP POWDER 15 GM BTL TOPICAL SCH (09:26)
== END 2020-10-04 10:06 | disposition hospice, home (50) | DRG 280 ==
LOC: ED 12:55 → ICU 17:24 → MEDTELE 09-26 09:25
PROVIDERS: ADMIT Internal Medicine; ATTEND Internal Medicine